=== PATIENT | male | born 1950 | race Caucasian/White ===

== ENCOUNTER 2018-02-17 16:10 | Inpatient (IN) | payer OTHER ==
--- NOTE | 2018-02-17 16:36 | EDPHY ---
H & P Stated Complaint: Found down at home Time Seen by Provider: 02/17/18 16:36 - Personal History Current Tetanus/Diphtheria Vaccine: No - Medical/Surgical History Hx Asthma: No Hx Chronic Respiratory Disease: No Hx Diabetes: No Hx Cardiac Disease: No Hx Renal Disease: No Hx Cirrhosis: No Hx Alcoholism: No Hx HIV/AIDS: No Hx Splenectomy or Spleen Trauma: No Other PMH: denies - Social History Smoking Status: Never smoked Constitutional: Initial Vital Signs Temperature (C) 37.0 C 02/17/18 16:15 Heart Rate 97 02/17/18 16:15 Respiratory Rate 18 02/17/18 16:15 Blood Pressure 134/87 H 02/17/18 16:15 O2 Sat (%) 80 L 02/17/18 16:15 O2 Delivery Mode Nasal Cannula O2 (L/minute) 3 Allergies/Adverse Reactions: No Known Allergies Allergy (Unverified 02/17/18 16:18) Home Medications: Medication Instructions Recorded NK [No Known Home Meds] 12/10/13 Medical Decision Making - Diagnostics Imaging Results: Imaging Impressions Head CT 02/17/18 16:43 Impression: 1. Hypodense possible mass right frontal lobe. Consider MRI of the brain with contrast for further characterization. Focal infarct is felt to be possible but less likely. Findings discussed with Tera Beckman MD at 18:08 hour, 02/17/2018. Chest X-Ray 02/17/18 16:44 Impression: 1. Peribronchial thickening and interstitial prominence suggesting airways disease/bronchitis. 2. Elevation of the right hemidiaphragm. 3. Degenerative change in the cervical spine with spondylolistheses. Chest/Thorax CTA 02/17/18 18:35 Impression: 1. No evidence of pulmonary embolus using CT protocol. 2. Mild dependent atelectasis at the lung bases posteriorly. 3. Marked compression at T5. It is indeterminate if this is a pathologic compression fracture versus related to trauma or osteoporosis. 4. Numerous hypodensities in the liver. These are nonspecific and could be related to tiny small cysts versus metastatic deposits. Consider CT abdomen and pelvis or MRI exam with contrast for further characterization as clinically directed. 5. Moderate hiatal hernia. Mass in the hiatal hernia cannot be excluded on these images. Findings discussed with Tera Beckman MD at 19:27 hour, 02/17/2018. Imaging: Discussed imaging studies w/ call center representative Radiologist, I viewed and interpreted images myself ED Course/Re-evaluation: CHIEF COMPLAINT: Found down HISTORY OF PRESENT ILLNESS: The patient is a 68 y/o male with no significant medical history arriving via EMS after he was found down at home. The fire department was contacted when he didn't show for work today. He remembers going to bed last night and then waking up a few times during the night with back pain. The next thing he remembers is being woken up by the fire department while lying on the floor this afternoon when they had to break into his house to check on him. On scene he told a family member he ate dinner then laid down on the kitchen floor, though his brother disputes this because they found him on the floor in his bedroom. Brother also notes the oven was left on when they found him. A family member last saw him normal around 18:30 last night, about 10 hours ago. The patient vomited en route and is currently alert and oriented. He has dried blood around his mouth that he says it because his lips are dry. He says he hasn't eaten since last night. No history of seizures. He denies taking any medications or illicit drugs. Family members also report he is very healthy and takes no medications. REVIEW OF SYSTEMS: A comprehensive 10 system review of systems is otherwise negative aside from elements mentioned in the history of present illness and medical decision making. PHYSICAL EXAM: HR, BP, O2 Sat, RR. Temp noted General Appearance: Alert, cachectic. Head: Atraumatic without scalp tenderness or obvious injury Eyes: Pupils equal, round, reactive to light and accommodation, EOMI, no trauma , no injection. Ears: Clear bilaterally, no perforation, normal landmarks Nose: Atraumatic, no rhinorrhea, clear. Throat: There is no erythema or exudates, no lesions, normal tonsils, mucus membranes dry. Laceration right lateral tongue. Dried blood around mouth. Neck: Supple, nontender, no lymphadenopathy. Respiratory: No retractions, no distress, no wheezes, and no accessory muscle use. Lungs are clear to auscultation bilaterally. Cardiovascular: Regular rate and rhythm, no murmurs, rubs, or gallops. Good capillary refill all extremities. Gastrointestinal: Abdomen is soft, nontender, non-distended, no masses, no rebound, no guarding, no peritoneal signs. Musculoskeletal: Normal active ROM of all extremities, atraumatic. Neurological: Alert, appropriate, and interactive. The patient has non-focal cranial nerves, motor, sensory, and cerebellar exam. Skin: No rashes, good turgor, no nodules on palpation. Past medical history: Denies Past surgical history: Denies Family history: Heart disease and stroke; brother as Factor II deficiency with history of several blood clots. Social history: Family members at bedside. Lives in [place]. Single. Vegan. DIAGNOSTICS/PROCEDURES/CRITICAL CARE TIME: The 12 lead EKG was interpreted by myself. Sinus mechanism. No ischemia. See hard copy and/or "tracemaster" electronic copy for interpretation. Head CT: Possible lesion right frontal vs infarct Chest x-ray: no infiltrate Chest CTA: no PE, nondescript liver lesions, T5 compression fracture with some retropulsion Brain MRI: right frontal lesion Critical care time spent by me, Dr. Beckman, exclusively with this patient was 45 minutes, exclusive of PA time and exclusive of procedures. The organ system at risk was brain. Time spent in serial assessments of the patient, discussion with patient's family, consideration of interventions, radiology and neurosurgery consultation, and review of imaging and lab results. DIFFERENTIAL DIAGNOSIS: The differential diagnosis for the patient's altered mental status included but was not limited to hypoglycemia, infectious process, electrolyte abnormality, head injury, neurologic process, anemia, cardiac process, and intoxicants. MEDICAL DECISION MAKING: This is a 68 y/o male who presents after he was found down at home for an unknown period of time, perhaps as long as 20 hours or so. He is alert and oriented upon assessment, but cannot provide much detail about what happened between last night and when he was awoken by the fire department this afternoon. He generally denies complaints other than feeling thirsty. He has dried blood around his lips, a right lateral tongue laceration, and vomited once en route here. He was hypoxemic at 80% upon intake. Unclear what caused this prolonged period of unconsciousness. Patient may have had a seizure given tongue bite, though the differential is broad. Concern for rhabdomyolysis. Plan for IV, labs, EKG, chest x-ray, head CT. BGL unexpectedly normal for not having eaten all day. UA is positive for glucose and blood (or possibly myoglobin, CK is still pending). Urine tox is negative. Non-contrast head CT shows infarct vs. lesion. Brain MRI w/without IV contrast ordered for further evaluation. D-dimer extremely elevated greater than 20.00. This may support likelihood of malignancy. Chest CTA ordered to rule out PE. Patient continues to be hypoxemic when taken off supplemental O2. CK elevated 2202 indicating rhabdomyolysis. Chest CTA negative for PE. Nondescript liver lesions noted. MRI still pending. Will preload with Keppra for suspected seizure related to possible brain lesion. Spoke with hospitalist service. Dr. Barron accepts admission. 1934: Patient is now vomiting. 4mg IV Zofran ordered. Brain MRI shows right frontal lesion. Spoke with Dr. Barron and updated him on reports and patient condition. 2029: Consulted with Dr. Tristan, neurosurgeon. He will consult during admission. Discussed results with patient and his family members. - Data Points Laboratory Results: Laboratory Results 02/17/18 16:10 02/17/18 16:10 02/17/18 02/17/18 02/17/18 16:39 16:39 16:10 WBC RBC Hgb POC Hgb 14.3 gm/dL gm/dL (13.7-17.5) Hct POC Hct 42 % % (40-51) MCV MCH MCHC RDW Plt Count MPV Neut % (Auto) Lymph % (Auto) Bureau % (Auto) Eos % (Auto) Baso % (Auto) Nucleat RBC Rel Count Absolute Neuts (auto) Absolute Lymphs (auto) Absolute Monos (auto) Absolute Eos (auto) Absolute Basos (auto) Absolute Nucleated RBC Immature Gran % Immature Gran # RBC/WBC/PLT Morphology Platelet Estimate PT INR D-Dimer POC Sodium 141 mEq/L mEq/L (135-145) Sodium POC Potassium 4.3 mEq/L mEq/L (3.3-5.0) Potassium POC Chloride 108 mEq/L mEq/L (97-110) Chloride Carbon Dioxide Anion Gap POC BUN 20 mg/dL mg/dL (7-23) BUN Creatinine POC Creatinine 0.9 mg/dL mg/dL (0.7-1.3) Estimated GFR Glucose POC Glucose 137 mg/dL H mg/dL (70-100) Calcium Creatine Kinase CK-MB (CK-2) Fraction CK-MB (CK-2) % Creatine Kinase Interp POC Troponin I 0.04 ng/mL ng/mL (0.00-0.08) Urine Color Urine Appearance Urine pH Ur Specific [place] Urine Protein Urine Ketones Urine Blood Urine Nitrate Urine Bilirubin Urine Urobilinogen Ur Leukocyte Esterase Urine RBC Urine WBC Ur Epithelial Cells Amorphous Sediment Urine Mucus Urine Sperm Urine Glucose Urine Opiates Screen NEGATIVE (NEGATIVE) Urine Barbiturates NEGATIVE (NEGATIVE) Ur Phencyclidine Scrn NEGATIVE (NEGATIVE) Ur Amphetamine Screen NEGATIVE (NEGATIVE) U Benzodiazepines Scrn NEGATIVE (NEGATIVE) Urine Cocaine Screen NEGATIVE (NEGATIVE) U Marijuana (THC) Screen NEGATIVE (NEGATIVE) 02/17/18 02/17/18 02/17/18 16:10 16:10 16:10 WBC RBC Hgb POC Hgb Hct POC Hct MCV MCH MCHC RDW Plt Count MPV Neut % (Auto) Lymph % (Auto) Bureau % (Auto) Eos % (Auto) Baso % (Auto) Nucleat RBC Rel Count Absolute Neuts (auto) Absolute Lymphs (auto) Absolute Monos (auto) Absolute Eos (auto) Absolute Basos (auto) Absolute Nucleated RBC Immature Gran % Immature Gran # RBC/WBC/PLT Morphology Platelet Estimate PT 14.6 SEC SEC (12.0-15.0) INR 1.12 (0.83-1.16) D-Dimer > 20.00 ug/mLFEU H ug/mLFEU (0.00-0.50) POC Sodium Sodium 138 mEq/L mEq/L (135-145) POC Potassium Potassium 4.8 mEq/L mEq/L (3.3-5.0) POC Chloride Chloride 106 mEq/L mEq/L (97-110) Carbon Dioxide 25 mEq/l mEq/l (22-31) Anion Gap 7 mEq/L mEq/L (6-14) POC BUN BUN 20 mg/dL mg/dL (7-23) Creatinine 0.9 mg/dL mg/dL (0.7-1.3) POC Creatinine Estimated GFR > 60 Glucose 126 mg/dL H mg/dL (70-100) POC Glucose Calcium 8.7 mg/dL mg/dL (8.5-10.4) Creatine Kinase 2202 IU/L H IU/L (0-224) CK-MB (CK-2) Fraction 11.60 ng/mL H ng/mL (0.00-4.55) CK-MB (CK-2) % 0.5 % % (0.0-4.0) Creatine Kinase Interp NEGATIVE (NEGATIVE) POC Troponin I Urine Color YELLOW Urine Appearance HAZY Urine pH 5.0 (5.0-7.5) Ur Specific [place] 1.022 (1.002-1.030) Urine Protein 1+ H (NEGATIVE) Urine Ketones NEGATIVE (NEGATIVE) Urine Blood 2+ H (NEGATIVE) Urine Nitrate NEGATIVE (NEGATIVE) Urine Bilirubin NEGATIVE (NEGATIVE) Urine Urobilinogen NEGATIVE EU EU (0.2-1.0) Ur Leukocyte Esterase NEGATIVE (NEGATIVE) Urine RBC 1-3 /hpf /hpf (0-3) Urine WBC 1-3 /hpf /hpf (0-3) Ur Epithelial Cells NONE SEEN /lpf /lpf (NONE-1+) Amorphous Sediment PRESENT /hpf /hpf (NONE-1+) Urine Mucus TRACE /lpf /lpf (NONE-1+) Urine Sperm PRESENT /hpf /hpf (NONE SEEN) Urine Glucose 3+ H (NEGATIVE) Urine Opiates Screen Urine Barbiturates Ur Phencyclidine Scrn Ur Amphetamine Screen U Benzodiazepines Scrn Urine Cocaine Screen U Marijuana (THC) Screen 02/17/18 16:10 WBC 13.32 10^3/uL H 10^3/uL (3.80-9.50) RBC 4.56 10^6/uL 10^6/uL (4.40-6.38) Hgb 15.2 g/dL g/dL (13.7-17.5) POC Hgb Hct 42.5 % % (40.0-51.0) POC Hct MCV 93.2 fL fL (81.5-99.8) MCH 33.3 pg pg (27.9-34.1) MCHC 35.8 g/dL g/dL (32.4-36.7) RDW 12.2 % % (11.5-15.2) Plt Count 145 10^3/uL L 10^3/uL (150-400) MPV 11.8 fL H fL (8.7-11.7) Neut % (Auto) 90.4 % H % (39.3-74.2) Lymph % (Auto) 3.2 % L % (15.0-45.0) Bureau % (Auto) 5.7 % % (4.5-13.0) Eos % (Auto) 0.0 % L % (0.6-7.6) Baso % (Auto) 0.2 % L % (0.3-1.7) Nucleat RBC Rel Count 0.0 % % (0.0-0.2) Absolute Neuts (auto) 12.04 10^3/uL H 10^3/uL (1.70-6.50) Absolute Lymphs (auto) 0.43 10^3/uL L 10^3/uL (1.00-3.00) Absolute Monos (auto) 0.76 10^3/uL 10^3/uL (0.30-0.80) Absolute Eos (auto) 0.00 10^3/uL L 10^3/uL (0.03-0.40) Absolute Basos (auto) 0.03 10^3/uL 10^3/uL (0.02-0.10) Absolute Nucleated RBC 0.00 10^3/uL 10^3/uL (0-0.01) Immature Gran % 0.5 % % (0.0-1.1) Immature Gran # 0.07 10^3/uL 10^3/uL (0.00-0.10) RBC/WBC/PLT Morphology TNP Platelet Estimate TNP PT INR D-Dimer POC Sodium Sodium POC Potassium Potassium POC Chloride Chloride Carbon Dioxide Anion Gap POC BUN BUN Creatinine POC Creatinine Estimated GFR Glucose POC Glucose Calcium Creatine Kinase CK-MB (CK-2) Fraction CK-MB (CK-2) % Creatine Kinase Interp POC Troponin I Urine Color Urine Appearance Urine pH Ur Specific [place] Urine Protein Urine Ketones Urine Blood Urine Nitrate Urine Bilirubin Urine Urobilinogen Ur Leukocyte Esterase Urine RBC Urine WBC Ur Epithelial Cells Amorphous Sediment Urine Mucus Urine Sperm Urine Glucose Urine Opiates Screen Urine Barbiturates Ur Phencyclidine Scrn Ur Amphetamine Screen U Benzodiazepines Scrn Urine Cocaine Screen U Marijuana (THC) Screen Medications Given: Discontinued Medications Hydromorphone HCl (Dilaudid) 1 mg IVP EDNOW ONE Stop: 02/17/18 18:36 Last Admin: 02/17/18 18:36 Dose: 1 mg Sodium Chloride (Ns) 1,000 mls @ 0 mls/hr IV ONCE ONE; Wide Open PRN Reason: Protocol Stop: 02/17/18 18:46 Last Admin: 02/17/18 18:46 Dose: 1,000 mls Levetiracetam (Keppra (Premix)) 100 mls @ 400 mls/hr IV EDNOW ONE Stop: 02/17/18 19:44 Last Admin: 02/17/18 19:40 Dose: 100 mls Ondansetron HCl (Zofran) 4 mg IVP EDNOW ONE Stop: 02/17/18 19:37 Last Admin: 02/17/18 19:40 Dose: 4 mg Point of Care Test Results: Chemistry 02/17/18 02/17/18 16:39 16:39 POC Sodium 141 mEq/L mEq/L (135-145) POC Potassium 4.3 mEq/L mEq/L (3.3-5.0) POC Chloride 108 mEq/L mEq/L (97-110) POC BUN 20 mg/dL mg/dL (7-23) POC Creatinine 0.9 mg/dL mg/dL (0.7-1.3) POC Glucose 137 mg/dL H mg/dL (70-100) POC Troponin I 0.04 ng/mL ng/mL (0.00-0.08) ISTAT H&H 02/17/18 16:39 POC Hgb 14.3 gm/dL gm/dL (13.7-17.5) POC Hct 42 % % (40-51) Departure - Departure Disposition: [facility] Inpatient Acute Clinical Impression: Hypoxemia, Glucosuria, Brain lesion, Elevated d-dimer Rhabdomyolysis Qualifiers: Rhabdomyolysis type: non-traumatic Qualified Code(s): M62.82 - Rhabdomyolysis Altered mental state Qualifiers: Altered mental status type: unspecified Qualified Code(s): R41.82 - Altered mental status, unspecified Vomiting Qualifiers: Vomiting type: unspecified Vomiting Intractability: non-intractable Nausea presence: with nausea Qualified Code(s): R11.2 - Nausea with vomiting, unspecified Traumatic compression fracture of T5 thoracic vertebra Qualifiers: Encounter type: initial encounter Fracture type: closed Qualified Code(s): S22.050A - Wedge compression fracture of T5-T6 vertebra, initial encounter for closed fracture Condition: Fair Report Scribed for: Tera Beckman Report Scribed by: Nidhi Resendiz Date of Report: 02/17/18 Time of Report: 16:49
[2018-02-17 16:54] LABS: PLATELET COUNT 145 10^3/uL (150-400)
[2018-02-17 17:37] LABS: INR 1.12 (0.83-1.16); PROTIME(PATIENT) 14.6 SEC (12.0-15.0)
[2018-02-17] MEDS ORDERED: HYDROmorphONE/DILAUDID 1 MG/ML INJ ONE (18:35)
[2018-02-17] MEDS ORDERED: HYDROmorphONE/DILAUDID 1 MG/ML INJ IVP ONE (18:35)
[2018-02-17] MEDS ORDERED: IOPAMIDOL (ISOVUE 370) 100 ML BTL IV ONE (18:40)
[2018-02-17] MEDS ORDERED: NS 1,000 ML IV ONE (18:45)
[2018-02-17 18:48] LABS: CREATINE KINASE 2202 IU/L (0-224)
[2018-02-17] MEDS ORDERED: GADOBUTROL 10 ML VIAL IVP ONE (19:27)
[2018-02-17] MEDS ORDERED: levETIRAcetam 1000MG/NACL 100 ML IV ONE (19:30)
[2018-02-17] MEDS ORDERED: ONDANSETRON 4 MG/2 ML VIAL IVP ONE (19:36)
[2018-02-17] MEDS ORDERED: ONDANSETRON 4 MG/2 ML VIAL IVP PRN (21:36)
[2018-02-17] MEDS ORDERED: ONDANSETRON DISINTEGRATING 4 MG TAB PO PRN (21:36)
[2018-02-17] MEDS ORDERED: IOPAMIDOL (ISOVUE-300) 100 ML BTL ONE (21:45)
[2018-02-17] MEDS: NS 1,000 ML IV SCH (22:33)
--- NOTE | 2018-02-17 23:09 | CPEKG ---
Test Reason : OPEN Blood Pressure : / mmHG Vent. Rate : 090 BPM Atrial Rate : 090 BPM P-R Int : 133 ms QRS Dur : 084 ms QT Int : 336 ms P-R-T Axes : 062 023 054 degrees QTc Int : 411 ms Sinus rhythm Confirmed by Elle Paul ([id number]) on 02/17/2018 11:08:51 PM Referred By: Confirmed By:Elle Paul
--- NOTE | 2018-02-17 23:15 | GHP ---
DATE OF ADMISSION: 02/17/2018 CHIEF COMPLAINT: Found down. HISTORY OF PRESENT ILLNESS: This is a 68-year-old male who has no significant past medical history. He is actually quite healthy at baseline. The last thing he remembered is that he tried to eat dinn er and for some reason lay down on the floor to sleep. He did not go to work, and thus fire departme nt was called and found him down but responsive. He did vomit en route. He had dried blood around h is mouth. He seemed to be postictal at the time. Currently, he is complaining of back pain more on the right side that has been going on for a little bit of time. He has not had any headaches, vision changes, focal weakness, personality changes. Denies any weight loss. His last colonoscopy was man y years ago. He is not a smoker. REVIEW OF SYSTEMS: 10-point review of systems was obtained and other than stated was negative. PAST MEDICAL HISTORY: None. MEDICATIONS: None. SOCIAL HISTORY: No smoking or alcohol. 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 FAMILY HISTORY: Reviewed. PHYSICAL EXAMINATION: VITAL SIGNS: Afebrile, blood pressure is 130/80, heart rate 93, oxygen satura tion 91% on 4 L. GENERAL: Patient is well developed, no apparent distress. HEENT: Nonicteric scle wilbert. Extraocular movements intact. Dry mucous membranes with dried blood in the mouth. NECK: Supp le. LUNGS: Good effort. Clear to auscultation bilaterally. CARDIOVASCULAR: Regular rate, rhythm. No murmurs or gallops. ABDOMEN: Positive bowel sounds. Soft. Nontender. EXTREMITIES: No clubb ing, cyanosis, or edema. SKIN: Without rash, dry, intact. NEURO: Alert and oriented x3, 5/5 stren gth in all 4 extremities. LABS: White count is 13, hemoglobin 15, platelets are slightly low, 145. Chemistry is normal. Trop onin is negative. CT scan of the chest shows a compression fracture at T5, possibly pathological, as well as numerous in the liver and a moderate hiatal hernia. MRI of the brain shows a 3 c m frontal lobe mass that is ring-enhancing with indeterminate etiology. ASSESSMENT: A 68-year-old male presenting with probable seizure, brain mass, and possibly metastatic disease. PLAN: 1. Brain mass: Neurosurgery will see the patient. Seems like with the liver with possible liver me tastases and possible pathological fracture, that these are metastases. He does have a CT scan of th e chest already. We will get a CT scan of the abdomen and pelvis. See if there is anything there to biopsy. He does have consistent lower back pain, and we might see some more pathological-type fract ures or more bone disease with the CT scanning of the abdomen, pelvis, and lumbar spine. 2. Probable seizure: We loaded him with Keppra. 3. Hypoxia: Patient does not have a pulmonary embolism. There is some atelectasis. There possibly could have been some aspiration. We are going to hold off on any antibiotics. We will continue to monitor. /[id number]/MODL
[2018-02-17] MEDS: oxyCODONE IR 5 MG TAB PO PRN (23:18)
[2018-02-18] MEDS: oxyCODONE IR 5 MG TAB PO PRN (05:16)
[2018-02-18 05:52] LABS: PLATELET COUNT 105 10^3/uL (150-400)
[2018-02-18] MEDS: ENOXAPARIN 40 MG/0.4 ML SYR SC SCH (09:24)
[2018-02-18] MEDS: levETIRAcetam 1000MG/NACL 100 ML IV SCH ×2 (09:24→21:25)
--- NOTE | 2018-02-18 09:38 | PDMN ---
Medical Necessity Medical necessity: [facility] [id number] Seizure: 68 yo found down at home suspected to have seizures. Scans reveal new brain mass w/ poss liver mets, T5 compression fx poss pathological. Pt hypoxemic at 80% RA, O2 started. IVF and IV anti-seizure meds started. Neurosurgery consult pending. Admit to IP status SDU, meets [facility] [place] for new onset seizures r/t brain disorder that requires monitoring or intervention available only at IP level of care.
--- NOTE | 2018-02-18 11:40 | HOSPPROG ---
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 ortho to see 2. likely needs hip replacement 3. presumably pathologic diagnosis will be obtained at that time metastatic workup: check psa hope to get path from hip surgery pain: prn dialudid code: full dispo: stepdown, inpt Subjective: case d/w dr walker Objective: Vital Signs Temp Pulse Resp BP Pulse Ox 36.8 C 95 21 H 105/58 L 95 02/18/18 07:42 02/18/18 07:42 02/18/18 07:42 02/18/18 07:42 02/18/18 07:42 Laboratory Results 02/18/18 04:45 02/18/18 04:45 02/17/18 02/18/18 02/19/18 05:59 05:59 05:59 Intake Total 2745 Output Total 300 Balance 2445 PT 14.6 SEC (12.0-15.0) 02/17/18 16:10 INR 1.12 (0.83-1.16) 02/17/18 16:10 - Physical Exam Constitutional: no apparent distress, appears nourished Eyes: anicteric sclera, EOMI Ears, Nose, Mouth, Throat: other (dried blood about mouth) Cardiovascular: regular rate and rhythym, no murmur, rub, or gallop Respiratory: no respiratory distress, no rales or rhonchi Gastrointestinal: normoactive bowel sounds, soft, non-tender abdomen Genitourinary: No zhong in urethra Skin: warm, normal color Musculoskeletal: No full muscle strength Neurologic: AAOx3 Psychiatric: interacting appropriately ICD10 Worksheet Patient Problems: Problems Problem Status Onset Altered mental state Acute Brain lesion Acute Elevated d-dimer Acute Glucosuria Acute Hypoxemia Acute Rhabdomyolysis Acute Traumatic compression fracture of T5 thoracic vertebra Acute Vomiting Acute
--- NOTE | 2018-02-18 12:35 | ASMTCMCOM ---
CM Note CM Note Notes: CM reviewed pt's chart for d/c planning. Pt is a 68 y/o male with no significant medical hx. Pt was found lying down on his bedroom. Upon exam pt was found to have had probable seizure, a brain mass, possibly metastatic disease and a pathologic hip fracture. Pt is retired. OT/PT have been ordered. CM will follow. D/C Plan: TBD Date Signed: 02/18/2018 12:34 PM Electronically Signed By:Dorita Fishman
[2018-02-18] MEDS: DEXAMETHASONE 4 MG/ML VIAL IVP SCH ×3 (12:58→23:04)
--- NOTE | 2018-02-18 13:29 | GCON ---
ORTHOPEDIC ER CONSULT/INPATIENT CONSULT DATE OF CONSULTATION: 02/17/2018 CHIEF COMPLAINT: 1. Altered mental status. 2. Right femoral neck fracture. 3. Left acetabular fracture. 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 He was doing well a few days ago and last night had a seizure and a fall. He seemed to be quite heal thy at baseline. His brother does most of the history. He is from [place]. He moved to [place] a bout 30 years ago. He was triaged to the emergency room. He does not describe any back pain prior. He does complain of some neck pain and stiffness from arthritis. He does complain of some baseline hip pain prior to this incident per his brother. Please see details of ER H and P and admitting H and P. PHYSICAL EXAM: Pertinent orthopedic examination reveals a sleepy gentleman who arises with verbal co mmands. He follows commands. He complains of bilateral hip pain. Abdomen is soft. X-RAY AND LABORATORY STUDIES: Imaging reviewed, shows a brain mass on the left frontal lobe. There is question of T5 compression fracture, may be subacute, but he was not describing any back pain prio r, as well as a right femoral neck fracture that is displaced with a slight crack in the greater troc hanter as well as a left acetabular fracture. IMPRESSION/RECOMMENDATIONS: I spent about a half hour at the bedside. I spoke with his family and jewel is brother. I described the surgical interventions for the femoral neck fracture, most likely a tota l hip replacement. My main concern is the diagnosis of this new found mass in his brain. Question m etastatic versus primary. It would be nice to understand the whole picture 1st. We can definitely w ait on the femoral neck fracture and hip replacement. His brother is interested in also getting a di agnosis. Neuro Surgery to consult. /[id number]/MODL
[2018-02-18] MEDS: HYDROmorphONE/DILAUDID 1 MG/ML INJ IVP PRN (15:48)
[2018-02-18] MEDS: ACETAMINOPHEN 325 MG TAB PO PRN (23:05)
[2018-02-18] MEDS: NS 1,000 ML IV SCH (23:07)
--- NOTE | 2018-02-19 02:48 | GCON ---
REASON FOR CONSULT: A 3 cm right frontal mass. 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 He is single and lives alone and has no medical issues. He states yesterday he fe lt like his hips hurt and he sat down, however, he does not correctly recall the incident. He presen brodie to the emergency room with a right femoral neck fracture and a left acetabular fracture. Imaging workup found a large 3 cm right frontal mass. The patient reports no symptoms. He has had no heada ches. No dizziness. No vomiting. No weakness. No confusion or mental deficits of any kind. He st ates he was completely fine until yesterday. Per HPI, it appears that he may have had a seizure. PAST MEDICAL HISTORY: The patient denies any chronic disease or any past medical history. PAST SURGICAL HISTORY: The patient denies any past surgical history. SOCIAL HISTORY: The patient lives alone. 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 He is not . HOME MEDICATIONS: The patient takes no home medications. REVIEW OF SYSTEMS: Negative except as stated above. PHYSICAL EXAM: NEUROLOGIC: The patient is alert and oriented x3. His vital signs are stable. He i s in no acute distress. He does have some blood tinge around his lips. He is actively not moving hi s lower extremities. His extraocular movements are intact. His pupils are equal and reactive to lig ht. His cranial nerves 2-12 are grossly intact. Tongue protrusion is midline. No facial droop. Th e patient notes some pain in his right shoulder and cannot lift it fully due to pain. His left upper extremity has 5/5 strength. The patient can wiggle his toes and contract all the muscles in his low er extremities. Full exam was deferred given bilateral fractures of his hips. ASSESSMENT AND PLAN: This is a 68-year-old male who is relatively healthy, who presented yesterday a fter a questionable seizure and findings of a 3 cm right frontal lesion and bilateral hip fractures. He has continued workup right now for possible metastatic disease. We agree with this workup. Kepp ra has been loaded and we would continue Keppra at this point in time. I would also add Decadron 4 m g q.6 hours for any brain swelling due to the tumor. We will follow the complete workup for metastat ic disease, and if it is negative, we will likely resect the tumor. We will make further recommendat ions upon completion of the workup. The patient will be seen at the bedside later this afternoon by Dr. Tristan. This plan was discussed with him and images were reviewed with him. /[id number]/MODL
[2018-02-19] MEDS: DEXAMETHASONE 4 MG/ML VIAL IVP SCH ×4 (06:23→23:59)
[2018-02-19] MEDS: oxyCODONE IR 5 MG TAB PO PRN ×2 (06:27→17:29)
--- NOTE | 2018-02-19 08:56 | SOAPPROG ---
SOAP Progress Note Assessment/Plan: Assessment: R fem neck fx L acetabular fx Brain mass Plan: 02/19/18 08:52 spoke with BLANCA Brown and brother. agrees with definitive mgmt here at [facility] Plan for Total hip this week Arthroplasty consult pending 02/19/18 08:55 Needs path diagnosis Subjective: spoke with Kevin (brother, BLANCA) last night spoke with Dr Tristan last night Objective: Vital Signs Temp Pulse Resp BP Pulse Ox 36.4 C 73 13 113/57 L 92 02/19/18 07:48 02/19/18 07:48 02/19/18 07:48 02/19/18 07:48 02/19/18 07:48 Laboratory Results 02/18/18 04:45 02/18/18 04:45 02/18/18 02/19/18 02/20/18 05:59 05:59 05:59 Intake Total 2745 4175 250 Output Total 300 200 800 Balance 2445 3975 -550 PT 14.6 SEC (12.0-15.0) 02/17/18 16:10 INR 1.12 (0.83-1.16) 02/17/18 16:10 alert cooperative friend at bedside abd soft mobile feet and toes answered all questions ICD10 Worksheet Patient Problems: Problems Problem Status Onset Altered mental state Acute Brain lesion Acute Elevated d-dimer Acute Glucosuria Acute Hypoxemia Acute Rhabdomyolysis Acute Traumatic compression fracture of T5 thoracic vertebra Acute Vomiting Acute
[2018-02-19] MEDS: ACETAMINOPHEN 325 MG TAB PO PRN (09:12)
[2018-02-19] MEDS: levETIRAcetam 500 MG TAB PO SCH ×2 (09:12→21:07)
[2018-02-19] MEDS: ENOXAPARIN 40 MG/0.4 ML SYR SC SCH (09:13)
--- NOTE | 2018-02-19 10:05 | GCON ---
REASON FOR ADMISSION: Found down, acute rhabdo brain mass. Mr. Schwartz is a 68-year-old white male without past medical history. He was found down at home. Ap parently, he did not show up for work, fire department called and he was found unresponsive. There w as some evidence of vomiting. He was brought into the emergency room, subsequently found to have a b rain mass. This patient is currently somewhat somnolent. All history is gleaned from the medical re cord. He was also found to have a right femoral neck fracture and left acetabular fracture. REVIEW OF SYSTEMS: A 10-point review of systems is performed, negative except for what is listed in the HPI. ALLERGIES: No known allergies to medications. SOCIAL HISTORY: No history of tobacco use. No history of alcohol use. He is in excellent health pr ior to this. 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 MEDICATIONS: At home, none, though he does take some herbal supplements. FAMILY HISTORY: Noncontributory. PHYSICAL EXAM: VITAL SIGNS: Blood pressure is 105/58, pulse 75, respirations 21, temperature 36.8, oxygen saturation 95% on 6 L. In general he is a thin, but well-developed 68-year-old white male, wh o is somewhat somnolent, but resting comfortably. HEENT: Eyes are PERRLA, EOMI. Throat shows no er ythema or tonsil hypertrophy. NECK: Supple. No cervical adenopathy. Heart is regular rate and rhy thm without murmurs, rubs, or gallops. LUNGS: Show diminished breath sounds but no wheeze. ABDOMEN: Soft, nontender. Bowel sounds are present in all 4 quadrants. EXTREMITIES: Show no clubbing, cya nosis, or edema. LABORATORIES: White count 11.5, hemoglobin 12, hematocrit 35, platelet count is 105. Sodium 138, po tassium 4.6, chloride 111, CO2 is 23, BUN 19, creatinine 0.9, glucose is 89. Urinalysis is negative. Tox screen is negative. CT scan of the abdomen reveals a fracture of the right femoral neck and th ere are numerous hypodensities in the liver. He has fractures also associated with the left iliac wi ng and superior pubic rami. Brain MRI reveals a 3 cm mass in the right posterior frontal lobe. IMPRESSION: 1. Status post fall. 2. Right femoral neck fracture as well as pelvic fracture. 3. Brain tumor. 4. Probable METS to liver. 5. Acute rhabdomyolysis. 6. Probable seizure. RECOMMENDATION: 1. Agree with admission to the intensive care unit. 2. The patient has been seen by Neurosurgery as well as Orthopedic Surgery. 3. Agree with [facility] for seizure precautions. 4. Adequate pain control. 5. Deep venous thrombosis and PE prophylaxis. 6. Stress ulcer prophylaxis. /[id number]/MODL
--- NOTE | 2018-02-19 10:45 | GCON ---
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 HISTORY OF PRESENT ILLNESS: The patient is a 68-year-old white male without past medical history. Kristi thomson presents after being found down at home. He did not report work. The fire department was called a nd he was found unresponsive at that time. He had some evidence of vomiting as well. He was brought to the emergency room. He was somewhat somnolent at the time. Currently, he IS awake and alert. H as no recollection of what occurred. All history is gleaned from the medical record. REVIEW OF SYSTEMS: 10-point review of systems is performed and negative, except for what is listed i n HPI. PAST MEDICAL HISTORY: None. ALLERGIES: No known allergies to medication. SOCIAL HISTORY: No history of tobacco use. No history of alcohol use. He is single. 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 HOME MEDICATION: None. FAMILY HISTORY: Noncontributory. PHYSICAL EXAM: VITAL SIGNS: Blood pressure 113/57, pulse 73, respirations 13, temperature 36.4, oxy gen saturation 92% 4 L. GENERAL: He is a thin 68-year-old white male who is resting comfortably in no acute distress HEENT: Eyes: PERRLA, EOMI. Throat shows no erythema or tonsillar hypertrophy. N LEELEE: Supple. No cervical adenopathy. HEART: Regular rate and rhythm without murmurs, rubs, gallop s. LUNGS: Clear to auscultation. No wheeze or rhonchi. ABDOMEN: Soft, nontender. Bowel sounds p resent in all 4 quadrants. EXTREMITIES: No clubbing, cyanosis, or edema. LABORATORY/IMAGING: White count is 11.5, hemoglobin 12, hematocrit 35, platelet count is 105. Sodiu m 138, potassium 4.6, chloride 111, CO2 23, BUN 19, creatinine 0.9, glucose is 89. Urinalysis is neg ative. Brain MRI shows a 3 cm right posterior frontal ring-enhancing mass. Abdominal CT showed a fractured right femoral neck, as well as left iliac wing and posterior pubic ra mus. IMPRESSION: 1. Brain mass. 2. Probable seizure. 3. Found down. 4. Hip fracture. RECOMMENDATIONS: 1. Adequate pain control. 2. DVT and PE prophylaxis. 3. Stress ulcer prophylaxis. 4. Neurosurgery has evaluated the patient. 5. Orthopedic has evaluated the patient. /[id number]/MODL
--- NOTE | 2018-02-19 14:27 | NEUSURGPN ---
Assessment/Plan: 68F with apparent seizure and findings of 3cm R frontal mass after fall resulting in b/l hip fx, one is operative. primary vs. 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 -Ortho may fix hip whenever is best for them from our standpoint -likely plan for OR early this week for bx/resection. -continue dex 4q6 -continue keppra 1gm BID dw Dr. Tristan Subjective: doing well, no further issues concerning for seizue. No weakness, numbness, tingling. Pain is controlled today. multiple questions from friends/family by phone and at bedside. Objective: NAD VSS AAOx4 EOMI, PEARLA cnii-xii grossly intact no pronator drift, no facial droop MAE4, 5/5= SILT Neurosurgery Physical Exam - Vitals, I&O, Labs I and O 02/18/18 02/19/18 02/20/18 05:59 05:59 05:59 Intake Total 2745 4175 650 Output Total 300 200 800 Balance 2445 3975 -150 Weight 66.9 kg Intake: Oral (ml) 600 500 650 IV Infused (ml) 2145 3675 Ns 1,000 ml @ 150 mls/hr 1045 3675 IV CONT YOLETTE Rx#: [id number] Output: Urine (ml) 300 200 800 Incontinence 800 Urinal 300 200 Other: Intake Quantity Yes Sufficient Output Comment Incontinence Condom Catheter Number of Voids 1 Incontinence 1 1 Urinal 3 Number of Stools Incontinence 0 Urinal 0 Vital Signs Temp Pulse Resp BP Pulse Ox 36.4 C 77 22 H 102/48 L 93 02/19/18 07:48 02/19/18 12:00 02/19/18 12:00 02/19/18 12:00 02/19/18 12:00 Laboratory Results 02/18/18 04:45 02/18/18 04:45 ICD10 Worksheet Patient Problems: Problems Problem Status Onset Altered mental state Acute Brain lesion Acute Elevated d-dimer Acute Glucosuria Acute Hypoxemia Acute Rhabdomyolysis Acute Traumatic compression fracture of T5 thoracic vertebra Acute Vomiting Acute
[2018-02-19] MEDS: HYDROmorphONE/DILAUDID 1 MG/ML INJ IVP PRN ×2 (14:45→21:22)
--- NOTE | 2018-02-19 14:49 | HOSPPROG ---
Hospitalist Progress Note Assessment/Plan: 58 yo M w seizure, 3 cm brain tumor, pathologic hip fracture seizure: started on keppra 2/2 brain tumor brain mass: skip tender primary vs metastatic start decadron, continue keppra neurosurgery to operate this week preoperative cardiac eval: normal ekg on presentation (interp by me) able to do > 4 mets at baseline to OR w/out further workup or intervention hip fracture: w acetabular fx this is pathologic fracture 1. ortho to see 2. likely needs hip replacement 3. presumably pathologic diagnosis will be obtained at that time metastatic workup: check psa hope to get path from hip surgery pain: prn dialudid, prn oxy code: full dispo: stepdown, inpt Subjective: case d/w dr lira, dr samuel, dr walker Objective: Vital Signs Temp Pulse Resp BP Pulse Ox 36.4 C 77 22 H 102/48 L 93 02/19/18 07:48 02/19/18 12:00 02/19/18 12:00 02/19/18 12:00 02/19/18 12:00 Laboratory Results 02/18/18 04:45 02/18/18 04:45 02/18/18 02/19/18 02/20/18 05:59 05:59 05:59 Intake Total 2745 4175 650 Output Total 300 200 800 Balance 2445 3975 -150 PT 14.6 SEC (12.0-15.0) 02/17/18 16:10 INR 1.12 (0.83-1.16) 02/17/18 16:10 - Physical Exam Constitutional: no apparent distress, appears nourished Eyes: PERRL, anicteric sclera Ears, Nose, Mouth, Throat: moist mucous membranes, hearing normal Cardiovascular: regular rate and rhythym, no murmur, rub, or gallop Respiratory: no respiratory distress, other (CTA anterolat) Gastrointestinal: normoactive bowel sounds, soft, non-tender abdomen Genitourinary: no bladder fullness, No zhong in urethra Skin: warm, normal color Musculoskeletal: No full muscle strength Neurologic: AAOx3 ICD10 Worksheet Patient Problems: Problems Problem Status Onset Altered mental state Acute Brain lesion Acute Elevated d-dimer Acute Glucosuria Acute Hypoxemia Acute Rhabdomyolysis Acute Traumatic compression fracture of T5 thoracic vertebra Acute Vomiting Acute
[2018-02-20] MEDS: DEXAMETHASONE 4 MG/ML VIAL IVP SCH ×3 (06:05→17:26)
--- NOTE | 2018-02-20 07:24 | NEUSURGPN ---
Assessment/Plan: Assessment: 68 yo male with apparent seizure and findings of 3cm R frontal mass after fall resulting in bilateral hip fx, one is operative. Query primary vs. 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 Tristan Subjective: Awake and alert. NAD. No new complaints or concerns. Objective: AAO x 3, PERRLA/EOMI NAD, AFVSS cnii-xii grossly intact no pronator drift, no facial droop MAE4, 5/5= SILT Neuro Check Frequency: per routine Urinary Catheter in Place: No - Physician Discussed Patient with Dr.: Tristan Neurosurgery Physical Exam - Vitals, I&O, Labs I and O 02/19/18 02/20/18 02/21/18 05:59 05:59 05:59 Intake Total 4175 1550 Output Total 200 1450 Balance 3975 100 Intake: Oral (ml) 500 1550 IV Infused (ml) 3675 Ns 1,000 ml @ 150 mls/hr 3675 IV CONT YOLETTE Rx#: [id number] Output: Urine (ml) 200 1450 Incontinence 1225 Urinal 200 225 Other: Intake Quantity Yes Sufficient Output Comment Incontinence Condom Catheter Number of Voids Incontinence 1 1 Number of Stools Incontinence 0 Vital Signs Temp Pulse Resp BP Pulse Ox 36.6 C 62 12 95/52 L 95 02/19/18 20:00 02/20/18 04:00 02/20/18 04:00 02/20/18 04:00 02/20/18 04:00 Laboratory Results 02/20/18 05:26 02/20/18 05:26 ICD10 Worksheet Patient Problems: Problems Problem Status Onset Altered mental state Acute Brain lesion Acute Elevated d-dimer Acute Glucosuria Acute Hypoxemia Acute Rhabdomyolysis Acute Traumatic compression fracture of T5 thoracic vertebra Acute Vomiting Acute
[2018-02-20] MEDS: levETIRAcetam 500 MG TAB PO SCH ×2 (08:19→22:20)
[2018-02-20] MEDS: ENOXAPARIN 40 MG/0.4 ML SYR SC SCH (08:19)
--- NOTE | 2018-02-20 14:50 | HOSPPROG ---
Hospitalist Progress Note Assessment/Plan: 58 yo M w seizure, 3 cm brain tumor, pathologic hip fracture seizure: started on keppra 2/2 brain tumor brain mass: switch coupler primary vs metastatic start decadron, continue keppra neurosurgery to operate this week preoperative cardiac eval: normal ekg on presentation (interp by me) able to do > 4 mets at baseline to OR w/out further workup or intervention hip fracture: w acetabular fx this is pathologic fracture 1. ortho to see 2. likely needs hip replacement 3. presumably pathologic diagnosis will be obtained at that time metastatic workup: check psa hope to get path from hip surgery pain: prn dialudid, prn oxy code: full dispo: inpt, med surg Subjective: case d/w germain aldrich, neurosurgery PA Objective: Vital Signs Temp Pulse Resp BP Pulse Ox 36.7 C 81 17 118/67 96 02/20/18 07:21 02/20/18 07:21 02/20/18 07:21 02/20/18 07:21 02/20/18 07:21 Laboratory Results 02/20/18 05:26 02/20/18 05:26 02/19/18 02/20/18 02/21/18 05:59 05:59 05:59 Intake Total 4175 1550 Output Total 200 1450 Balance 3975 100 PT 14.6 SEC (12.0-15.0) 02/17/18 16:10 INR 1.12 (0.83-1.16) 02/17/18 16:10 - Physical Exam Constitutional: no apparent distress, appears nourished Eyes: PERRL, anicteric sclera Ears, Nose, Mouth, Throat: moist mucous membranes, hearing normal Cardiovascular: regular rate and rhythym, no murmur, rub, or gallop Respiratory: no respiratory distress, no rales or rhonchi Gastrointestinal: normoactive bowel sounds, soft, non-tender abdomen Genitourinary: No zhong in urethra Skin: warm, normal color Musculoskeletal: No full muscle strength Neurologic: AAOx3 ICD10 Worksheet Patient Problems: Problems Problem Status Onset Altered mental state Acute Brain lesion Acute Elevated d-dimer Acute Glucosuria Acute Hypoxemia Acute Rhabdomyolysis Acute Traumatic compression fracture of T5 thoracic vertebra Acute Vomiting Acute
[2018-02-20] MEDS: HYDROmorphONE/DILAUDID 1 MG/ML INJ IVP PRN (19:46)
[2018-02-20] MEDS ORDERED: GADOBUTROL 10 ML VIAL IVP ONE (20:29)
--- NOTE | 2018-02-21 00:16 | SOAPPROG ---
SOAP Progress Note Assessment/Plan: Assessment: trauma consult 68 male with recent seizure resulting in rt hip fx and left acetabular fx as well as t5 compression fx seizure 2/2 rt frontal tumor heent nonicteric, no adenopathy chest clear and nontender cor rr abd soft, nontender extrem tender rt hip and left pelvis neuro intact and symmetric impr: no new findings Plan:brain tumor bx/ rt hip orif 02/21/18 00:06 Objective: Vital Signs Temp Pulse Resp BP Pulse Ox 36.8 C 60 16 115/70 96 02/21/18 00:00 02/21/18 00:00 02/21/18 00:00 02/21/18 00:00 02/21/18 00:00 Laboratory Results 02/20/18 05:26 02/20/18 05:26 02/19/18 02/20/18 02/21/18 05:59 05:59 05:59 Intake Total 4175 1550 1200 Output Total 200 1450 525 Balance 3975 100 675 PT 14.6 SEC (12.0-15.0) 02/17/18 16:10 INR 1.12 (0.83-1.16) 02/17/18 16:10 ICD10 Worksheet Patient Problems: Problems Problem Status Onset Altered mental state Acute Brain lesion Acute Elevated d-dimer Acute Glucosuria Acute Hypoxemia Acute Rhabdomyolysis Acute Traumatic compression fracture of T5 thoracic vertebra Acute Vomiting Acute
[2018-02-21] MEDS: DEXAMETHASONE 4 MG/ML VIAL IVP SCH ×5 (00:57→23:54)
[2018-02-21] MEDS ORDERED: TRANEXAMIC ACID 1,000 MG in NS 100 ML IV ONE (06:00)
[2018-02-21] MEDS ORDERED: ceFAZolin 2 GM/DEXTROSE 100 ML IV ONE (06:00)
[2018-02-21] MEDS ORDERED: FAMOTIDINE 20 MG TAB PO ONE (06:00)
[2018-02-21] MEDS ORDERED: ROPIVACAINE 0.2% 80 MG, EPINEPHrine 0.2 MG, KETOROLAC TROMETHAMINE 30 MG in SYRINGE 0 ML IU ONE (06:00)
[2018-02-21] MEDS ORDERED: POVIDONE-IODINE 20 ML in SODIUM CL IRRIG SOLUTION 500 ML IRR ONE (06:00)
--- NOTE | 2018-02-21 08:01 | NEUSURGPN ---
Assessment/Plan: Assessment: 68 yo male with apparent seizure and findings of 3cm R frontal mass after fall resulting in bilateral hip fx, one is operative. Query primary vs. metastasis also with subacute T5 compression fracture. 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 Recommendation was for biopsy and resection. -To OR with ortho today for hip fracture. NO ANTICOAGULATION FRONTAL CRANIOTOMY FOR MASS RESECTION/BIOPSY tomorrow at 1pm -For the subacute T5 compression fx, patient currently does not have pain in this location. Will continue to monitor as weight bearing with ortho is increased. 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 -continue dex 4q6 -continue keppra 1gm BID -call with any questions or concerns -pt understands and agrees -d/w Dr. Tristan Subjective: Denies any neck or thoracic pain. Denies any new arm or leg numbness, tingling or weakness other than at hip hips, worse with movement Objective: AAO x 3, PERRLA/EOMI NAD, AFVSS CN II-XII grossly intact MAE4, 5/5= Sensation intact to light touch - Physician Discussed Patient with : Kun Neurosurgery Physical Exam - Vitals, I&O, Labs I and O 02/20/18 02/21/18 02/22/18 05:59 05:59 05:59 Intake Total 1550 1600 Output Total 1450 1125 Balance 100 475 Intake: Oral (ml) 1550 1600 Output: Urine (ml) 1450 1125 Catheter 600 Incontinence 1225 Urinal 225 525 Other: Intake Quantity Yes Yes Sufficient Output Comment Catheter condom cath Incontinence Condom Catheter Number of Voids Incontinence 1 Number of Stools Incontinence 0 Vital Signs Temp Pulse Resp BP Pulse Ox 36.8 C 60 16 115/70 96 02/21/18 00:00 02/21/18 00:00 02/21/18 00:00 02/21/18 00:00 02/21/18 00:00 Laboratory Results 02/20/18 05:26 02/20/18 05:26 ICD10 Worksheet Patient Problems: Problems Problem Status Onset Altered mental state Acute Brain lesion Acute Elevated d-dimer Acute Glucosuria Acute Hypoxemia Acute Rhabdomyolysis Acute Traumatic compression fracture of T5 thoracic vertebra Acute Vomiting Acute
[2018-02-21] MEDS: levETIRAcetam 500 MG TAB PO SCH ×2 (08:22→21:00)
[2018-02-21] MEDS ORDERED: ceFAZolin 1 GM/5 ML SYR ONE (09:24)
[2018-02-21] MEDS ORDERED: LR 1,000 ML IV ONE (10:48)
[2018-02-21] MEDS ORDERED: CEFAZOLIN 2 GM/DEXTROSE/100 ML BAG IV ONE (10:56)
[2018-02-21] MEDS ORDERED: FAMOTIDINE 20 MG TAB ONE (10:56)
--- NOTE | 2018-02-21 11:48 | PDANEPAE ---
ANE History of Present Illness r hip posterior hip ANE Past Medical History - Cardiovascular History Hx Hypertension: No Hx Arrhythmias: No - Pulmonary History Hx COPD: No Hx Asthma/Reactive Airway Disease: No Hx Oxygen in Use at Home: No Hx Sleep Apnea: No Sleep Apnea Screening Result - Last Documented: Negative - Endocrine History Hx Diabetes: No - Cancer History Cancer History Comment: R frontal lobe tumor discovered this visit ANE Review of Systems Review of Systems: - Exercise capacity Exercise capacity: >=4 METS ANE Patient History - Allergies Allergies/Adverse Reactions: No Known Allergies Allergy (Unverified 02/17/18 16:18) - Home Medications Home Medications: NK [No Known Home Meds] 12/10/13 [Last Taken Unknown] - NPO status NPO Status: no food or drink >8 hours NPO Since - Liquids (Date): 02/21/18 NPO Since - Liquids (Time): 00:00 NPO Since - Solids (Date): 02/20/18 NPO Since - Solids (Time): 20:00 - Anes Hx Anes Hx: no prior problems - Smoking Hx Smoking Status: Never smoked - Alcohol Use Alcohol Use: None - Family Anes Hx Family Anes Hx: none ANE Labs/Vital Signs - Labs Result Diagrams: 02/20/18 05:26 02/20/18 05:26 - Vital Signs Blood Pressure: 132/78 Heart Rate: 67 Respiratory Rate: 14 O2 Sat (%): 91 Height: 182.88 cm Weight: 66.9 kg ANE Physical Exam - Airway Neck exam: FROM Mallampati Score: Class 2 Mouth exam: normal dental/mouth exam - Pulmonary Pulmonary: no respiratory distress, clear to auscultation - Cardiovascular Cardiovascular: regular rate and rhythym, no murmur, rub, or gallop - ASA Status ASA Status: III ANE Anesthesia Plan Anesthesia Plan: general endotracheal anesthesia
[2018-02-21] MEDS ORDERED: MIDAZOLAM 2 MG/2 ML VIAL IVP ONE (11:52)
[2018-02-21] MEDS ORDERED: LIDOCAINE 2% 100 MG/5 ML SYR ONE (12:15)
[2018-02-21] MEDS ORDERED: fentaNYL 100 MCG/2 ML INJ ONE ×3 (12:15→16:05)
[2018-02-21] MEDS ORDERED: ROCURONIUM 50 MG/5 ML VIAL ONE (12:15)
[2018-02-21] MEDS ORDERED: PROPOFOL 200 MG/20 ML VIAL ONE (12:15)
--- NOTE | 2018-02-21 13:44 | ASMTCMCOM ---
CM Note CM Note Notes: Pt discussed in rounds. Femur surgery today, frontal craiotomy for mass resection/biopsy Tuesday. D/C needs TBD. Plan: TBD Date Signed: 02/21/2018 01:44 PM Electronically Signed By:JAI Blue
[2018-02-21] MEDS ORDERED: DEXAMETHASONE 4 MG/ML VIAL ONE (15:01)
[2018-02-21] MEDS ORDERED: ONDANSETRON 4 MG/2 ML VIAL ONE (15:01)
[2018-02-21] MEDS ORDERED: PROMETHAZINE HCL 25 MG SUPPR PR PRN (15:09)
[2018-02-21] MEDS ORDERED: METOCLOPRAMIDE 10 MG/2 ML VIAL IVP PRN (15:09)
[2018-02-21] MEDS ORDERED: MAGNESIUM HYDROXIDE 30 ML UDCUP PO PRN (15:09)
[2018-02-21] MEDS ORDERED: diphenhydrAMINE 25 MG CAP PO PRN (15:09)
[2018-02-21] MEDS ORDERED: DIPHENOXYLATE/ATROPINE LOMOTIL 1 TAB PO PRN (15:09)
[2018-02-21] MEDS ORDERED: ONDANSETRON 4 MG/2 ML VIAL IVP PRN ×2 (15:09→15:24)
[2018-02-21] MEDS ORDERED: PROMETHAZINE HCL 25 MG/ML INJ IVP PRN (15:09)
[2018-02-21] MEDS ORDERED: ONDANSETRON DISINTEGRATING 4 MG TAB PO PRN (15:09)
[2018-02-21] MEDS ORDERED: LACTULOSE 20 GM/30 ML UDCUP PO PRN (15:09)
--- NOTE | 2018-02-21 15:09 | POSTOPPROG ---
Post Op Note Date of Operation: 02/21/18 Surgeon: Alfredo Hawkins Wealth Management Advisor: Co-surgeon: MD Jaron; Wealth Management Advisor LINCOLN King Anesthesiologist: MD Varsha Anesthesia: GET(General Endotracheal) Pre-op Diagnosis: R proximal femur/ femoral neck fracture Post-op Diagnosis: same Procedure: R MARCELLUS posterior approach Inf/Abcess present in the surg proc area at time of surgery?: No EBL: 100-500 (400)
[2018-02-21] MEDS ORDERED: NALOXONE HCL 0.4 MG/ML INJ IVP PRN (15:24)
[2018-02-21] MEDS ORDERED: ACETAMINOPHEN 500 MG TAB PO PRN (15:24)
[2018-02-21] MEDS ORDERED: oxyCODONE IR 5 MG TAB PO PRN (15:24)
[2018-02-21] MEDS ORDERED: HYDROmorphONE/DILAUDID 2 MG/ML INJ IVP PRN (15:24)
[2018-02-21] MEDS ORDERED: HYDROCODONE/APAP 5/325 TAB PO PRN (15:24)
[2018-02-21] MEDS ORDERED: DIAZEPAM 5 MG/ML 1 ML SYR IVP PRN (15:24)
[2018-02-21] MEDS ORDERED: LR 1,000 ML IV SCH (15:30)
--- NOTE | 2018-02-21 15:34 | POSTANESTH ---
Post Anesthetic Evaluation Cardiovascular Status: Normal, Stable, Similar to Pre-Op Cond Respiratory Status: Normal, Stable, Similar to Pre-op Cond. Level of Consciousness/Mental Status: Can Participate in Eval, Alert and Oriented Pain Control: Adequate, Prn Tx Ordered Nausea/Vomiting Control: Adequate, Prn Tx Ordered Complications Possibly Related to Anesthesia: None Noted
[2018-02-21] MEDS: fentaNYL 100 MCG/2 ML INJ IVP PRN ×2 (16:08→16:19)
--- NOTE | 2018-02-21 16:46 | HOSPPROG ---
Hospitalist Progress Note Assessment/Plan: 58 yo M w seizure, 3 cm brain tumor, pathologic hip fracture seizure: started on keppra 2/2 brain tumor brain mass: differential tester primary vs metastatic start decadron, continue keppra resection 02/22 lovenox dc'd preoperative cardiac eval: normal ekg on presentation (interp by me) able to do > 4 mets at baseline to OR w/out further workup or intervention hip fracture: MARCELLUS today surgeon notes poor quality of bone, not clearly metastatic, could just be osteoporosis longstanding vegan, may have nutritionally based osteoporosis metastatic workup: psa normal really, no evidence of metastatic disease femoral head sent for path pain: prn dialudid, prn oxy code: full dispo: inpt, med surg Subjective: case d/w dr marley. MARCELLUS today Objective: Vital Signs Temp Pulse Resp BP Pulse Ox 36.5 C 67 19 123/79 H 95 02/21/18 15:33 02/21/18 11:48 02/21/18 16:05 02/21/18 16:02 02/21/18 16:10 Laboratory Results 02/20/18 05:26 02/20/18 05:26 02/20/18 02/21/18 02/22/18 05:59 05:59 05:59 Intake Total 1550 1600 Output Total 1450 1125 Balance 100 475 PT 14.6 SEC (12.0-15.0) 02/17/18 16:10 INR 1.12 (0.83-1.16) 02/17/18 16:10 - Physical Exam Constitutional: no apparent distress, appears nourished Eyes: PERRL, anicteric sclera Ears, Nose, Mouth, Throat: moist mucous membranes, hearing normal Cardiovascular: regular rate and rhythym, no murmur, rub, or gallop Respiratory: no respiratory distress, no rales or rhonchi Gastrointestinal: normoactive bowel sounds, soft, non-tender abdomen Genitourinary: no bladder fullness, zhong in urethra Skin: warm, normal color Musculoskeletal: other (R foot w 1+ DP pulse) Psychiatric: interacting appropriately, not anxious ICD10 Worksheet Patient Problems: Problems Problem Status Onset Altered mental state Acute Brain lesion Acute Elevated d-dimer Acute Glucosuria Acute Hypoxemia Acute Rhabdomyolysis Acute Traumatic compression fracture of T5 thoracic vertebra Acute Vomiting Acute
[2018-02-21] MEDS: ceFAZolin 2 GM/DEXTROSE 100 ML IV SCH (20:59)
[2018-02-21] MEDS: SENNOSIDES/DOCUSATE SODIUM TAB PO SCH (21:00)
[2018-02-21] MEDS: FAMOTIDINE 20 MG TAB PO SCH (21:00)
[2018-02-21] MEDS: HYDROmorphONE/DILAUDID 1 MG/ML INJ IVP PRN (21:11)
[2018-02-21] MEDS: oxyCODONE IR 5 MG TAB PO PRN (21:11)
[2018-02-22] MEDS: ceFAZolin 2 GM/DEXTROSE 100 ML IV SCH ×2 (03:09→21:43)
[2018-02-22] MEDS: oxyCODONE IR 5 MG TAB PO PRN (03:10)
[2018-02-22] MEDS: DEXAMETHASONE 4 MG/ML VIAL IVP SCH ×4 (06:38→23:46)
--- NOTE | 2018-02-22 07:43 | SOAPPROG ---
SOAP Progress Note Assessment/Plan: Assessment: Postop day 1 status post right posterior approach total hip arthroplasty with open reduction internal fixation of the greater trochanter Plan: Weightbear as tolerated with assistance to the right lower extremity, foot flat weight-bearing to the left lower extremity with a walker, PT/OT DVT prophylaxis: Lovenox 40 mg daily once cleared by Neurosurgery, Emiliano clancy and SCDs Incentive spirometry 10 times per hour Analgesics: P.o. Narcotics, wean off when tolerated, then transition to Celebrex and Tylenol Disposition: Pending 02/22/18 07:40 02/22/18 07:43 Subjective: No acute events overnight. Pain better controlled today. Denies fevers chills nausea vomiting chest pain shortness of breath numbness or tingling. Objective: Vital Signs Temp Pulse Resp BP Pulse Ox 36.6 C 61 14 103/63 96 02/22/18 04:00 02/22/18 04:00 02/22/18 04:00 02/22/18 04:00 02/22/18 04:00 Laboratory Results 02/22/18 04:35 02/20/18 05:26 02/21/18 02/22/18 02/23/18 05:59 05:59 05:59 Intake Total 1600 2305 Output Total 1125 950 Balance 475 1355 PT 14.6 SEC (12.0-15.0) 02/17/18 16:10 INR 1.12 (0.83-1.16) 02/17/18 16:10 Awake alert and oriented x3 No acute distress Right hip: No ecchymosis, mild swelling Thigh and calf compartments soft compressible Sensation intact to light touch L4-S1 Motor intact to EHL FHL tibialis anterior gastrocsoleus Palpable DP PT pulses - Time Spent With Patient Time Spent With Patient: 10 ICD10 Worksheet Patient Problems: Problems Problem Status Onset Altered mental state Acute Brain lesion Acute Elevated d-dimer Acute Glucosuria Acute Hypoxemia Acute Rhabdomyolysis Acute Traumatic compression fracture of T5 thoracic vertebra Acute Vomiting Acute
--- NOTE | 2018-02-22 08:22 | NEUSURGPN ---
Assessment/Plan: Assessment: 68 yo male with apparent seizure and findings of 3cm R frontal mass after fall resulting in bilateral hip fx, one is operative. Query primary vs. metastasis also with subacute T5 compression fracture. 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 Discussed with patient we will need to wait for final pathology to anticipate prognosis. -Risks and benefits discussed with patient, consent signed on chart. -Patient was presented at Tumor board this am. Recommendation was for biopsy and resection. -To OR yesterday s/p hip fracture repair NO ANTICOAGULATION-FRONTAL CRANIOTOMY FOR MASS RESECTION/BIOPSY today at 1pm -For the subacute T5 compression fx, patient currently does not have pain in this location. Will continue to monitor as weight bearing with ortho is increased. If patient becomes symptomatic will require MATCH MARKER brace. -continue dex 4q6 -continue keppra 1gm BID -call with any questions or concerns -pt understands and agrees -d/w Dr. Tristan Subjective: Can't believe "this is happening to him" Objective: AxO x4 PERRLA CN 2-12 grossly intact MOSS x4 5/5 BUE lower extremity exam limited r/t s/p hip fracture Neuro Check Frequency: per routine Urinary Catheter in Place: No - Physician Discussed Patient with : [facility] Physical Exam - Vitals, I&O, Labs I and O 02/21/18 02/22/18 02/23/18 05:59 05:59 05:59 Intake Total 1600 2305 Output Total 1125 950 Balance 475 1355 Weight 66.9 kg Intake: Oral (ml) 1600 550 IV Intake (ml) 1755 Output: Urine (ml) 1125 550 Catheter 600 550 Urinal 525 Estimated Blood Loss (ml) 400 Other: Intake Quantity Yes Yes Sufficient Output Comment Catheter condom cath Number of Stools Bedpan 1 Vital Signs Temp Pulse Resp BP Pulse Ox 36.6 C 64 16 110/62 93 02/22/18 07:51 02/22/18 07:51 02/22/18 07:51 02/22/18 07:51 02/22/18 07:51 Laboratory Results 02/22/18 04:35 02/20/18 05:26 ICD10 Worksheet Patient Problems: Problems Problem Status Onset Altered mental state Acute Brain lesion Acute Elevated d-dimer Acute Glucosuria Acute Hypoxemia Acute Rhabdomyolysis Acute Traumatic compression fracture of T5 thoracic vertebra Acute Vomiting Acute
[2018-02-22] MEDS ORDERED: GADOBUTROL 10 ML VIAL IVP ONE (08:46)
[2018-02-22] MEDS: SENNOSIDES/DOCUSATE SODIUM TAB PO SCH ×2 (08:57→21:26)
[2018-02-22] MEDS: FAMOTIDINE 20 MG TAB PO SCH ×2 (08:57→21:26)
[2018-02-22] MEDS: levETIRAcetam 500 MG TAB PO SCH ×2 (10:06→21:26)
[2018-02-22] MEDS ORDERED: ceFAZolin 2 GM/DEXTROSE 100 ML IV ONE (12:00)
[2018-02-22] MEDS ORDERED: CHLORHEXIDINE GLUC HIBICLENS 118 ML BTL TP ONE (12:20)
[2018-02-22] MEDS ORDERED: BACITRACIN ZINC 0.5 OZ OINTTUBE TP ONE (12:20)
[2018-02-22] MEDS ORDERED: THROMBIN (BOVINE) 20,000 UNIT VIAL TP ONE ×2 (12:20→15:33)
[2018-02-22] MEDS ORDERED: POVIDONE-IODINE 30 GM OINTTUBE TP ONE (12:21)
[2018-02-22] MEDS ORDERED: niCARdipine/NACL/200 ML BAG IV ONE (12:21)
[2018-02-22] MEDS ORDERED: AVITENE POWDER 1 GM JAR TP ONE (12:21)
[2018-02-22] MEDS ORDERED: MANNITOL 20% 100 GM/500 ML BAG IV ONE (12:21)
[2018-02-22] MEDS ORDERED: SURGIFLO MATRIX KIT WITH THROMBIN 8 ML TP ONE (12:28)
[2018-02-22] MEDS ORDERED: GENTAMICIN SULFATE 80 MG/2 ML VIAL ONE ×2 (12:28→16:28)
[2018-02-22] MEDS ORDERED: BUPIVACAINE/EPI 0.25% 30 ML SDV ONE (12:28)
[2018-02-22] MEDS ORDERED: MIDAZOLAM 2 MG/2 ML VIAL IVP ONE (12:48)
[2018-02-22] MEDS ORDERED: PROPOFOL/EMULSION 500 MG/50 ML BOTTLE IV ONE ×2 (12:59→15:51)
[2018-02-22] MEDS ORDERED: REMIFENTANIL HCL 1 MG VIAL ONE ×2 (12:59→15:51)
[2018-02-22] MEDS ORDERED: PROPOFOL 200 MG/20 ML VIAL ONE (12:59)
[2018-02-22] MEDS ORDERED: fentaNYL 100 MCG/2 ML INJ ONE ×2 (12:59→17:04)
[2018-02-22] MEDS ORDERED: ROCURONIUM 100 MG/10 ML VIAL ONE ×2 (13:06→15:54)
[2018-02-22] MEDS ORDERED: LIDOCAINE 2% 100 MG/5 ML SYR ONE (13:07)
[2018-02-22] MEDS ORDERED: PHENYLEPHRINE 10 MG/ML SDV ONE (14:10)
--- NOTE | 2018-02-22 15:44 | GOP ---
DATE OF OPERATION: 02/21/2018 SURGEON: Alfredo Hawkins MD CO-SURGEON: Guanaco Salmeron MD CAN DRAGGER: Moises King CFA. Certified Travel Counselor was required for the procedure due to the complexity of the case and the patient's condition for positioning, prepping, draping, retraction and closure. ANESTHESIA: General. PREOPERATIVE DIAGNOSIS: Right femoral neck and proximal femur fracture with greater trochanteric involvement . POSTOPERATIVE DIAGNOSIS: same PROCEDURE PERFORMED: Right posterior approach total hip arthroplasty. Open reduction internal fixation of greater trochanter. Fluoroscopic supervision greater than 1 hour. FINDINGS: SPECIMENS: Right femoral head and neck. ESTIMATED BLOOD LOSS: 400 cc. INDICATIONS: Patient is a 68-year-old male who had a seizure at home and fell. Does not recall the incident and was found down approximately 12 hours after the fall. Diagnosed with above fracture, as well as a left acetabular fracture , and a newfound brain mass. Recommended operative treatment of the right hip and non-operative treatment of the acetabular fracture. Patient verbalized understanding of the risks, benefits of the procedure, and signed informed consent prior to it. DESCRIPTION OF PROCEDURE: Patient was seen in the holding area. Operative site was signed. Patient was taken the operating room operating room, after smooth induction of general anesthesia, was placed in the lateral decubitus position with the affected hip facing up using a pegboard and axillary roll. The affected hip was prepped and draped in usual sterile fashion. Operative site was confirmed by signature. Time-out performed. Allergies reviewed. Antibiotics and TXA were administered. A longitudinal incision was made centered over the posterior aspect of the greater trochanter. This was carried down through the subcutaneous tissue to identify the fascia darshana. This was incised in line with the incision. The gluteus skylar was bluntly split. Hemorrhagic trochanteric bursa was taken down using Bovie electrocautery. Short external rotators and trapezoidal capsule posterior capsulotomy were taken in layers from their insertion on the proximal femur and tagged with #2 FiberWires The fracture was immediately encountered. There was significant posterior comminution with extremely poor bone quality. The femoral head and parts of the proximal femur and femoral neck were excised. Due to the amount of posterior comminution and bone loss, as well as extremely poor bone quality, decision was made to proceed with a Catholic modular hip implant, as opposed to a primary traditional an Accolade II stem. The femoral canal was sequentially reamed up to a size 18 mm and 155 mm length. The trial reamer was visualized under fluoroscopy and found to be a good width and length. The permanent implant was then impacted into place. Trial cones were then placed on the proximal aspect of the stem. After dilating up to a 21 mm, ]the 21 mm reamer did not contact the bone given the amount of bone loss. Appropriate sized 21 mm trial with a +0 were secured to the proximal stem. We then placed the anterior acetabular retractor to light lever against the proximal stem to not create further fracturing or displacement of the proximal femur, greater trochanter. The acetabulum was exposed in standard fashion. The labrum was sharply excised. Ligamentum teres and acetabular fossa were excised using Bovie. The acetabulum was sequentially reamed to the appropriate size. Appropriate size implant was then impacted into place and had excellent secure fit. The cup was irrigated, dried, and the liner was locked into place. Femur was then again exposed in standard fashion. Trial neck and head in anteversion were completed and the hip was reduced. After multiple trial combinations and visualization under fluoroscopy, the hip was found to be stable with the above implants. Final implants were then placed, 2 [employer] beaded cables were then placed around the vertically oriented greater trochanteric fracture that extended down past the lesser trochanter and was found to have excellent secure fit. The wound was then copiously irrigated with sterile solution and Betadine and pulse lavaged using the pulse lavage, including the cup and the hip was relocated and taken again through range of motion and seen to be stable in all above motions, including flexion, internal rotation, adduction, as well as extension and external rotation. The capsule and external rotators were repaired through 2 drill holes in the greater trochanter. Soft tissue was infiltrated with joint cocktail. The wound was then closed in layers with #2 PDS Quill suture in the fascia darshana, 0 PDS Quill suture in the deep subcutaneous fat, and 3-0 Versalok suture in the dermis. Dermabond and sterile dressings were applied to the hip, and was placed in abduction pillow. The patient was safely awakened, extubated, taken to recovery room in stable condition. Critical portions of the procedure performed by myself, Dr. Hawkins, as well as Dr. Guanaco Salmeron. This operative note was created by myself, Dr. Hawkins, and I was immediately available for emergency cross-coverage at all times. DRAINS: None COMPLICATIONS: None. IMPLANTS: Include a Trident II Tritanium cluster hole acetabular shell size 56 with a 0 degree polyethylene, 36 mm insert, a Catholic modular hip system stem length 155 mm, 18 mm in diameter, a 21 mm cone +0 height with a 36 mm +2.5 ceramic head, also Aydee-Ugo beaded cables 2.0 mm x2. /[id number]/MODL MTDD
[2018-02-22] MEDS ORDERED: ACETAMINOPHEN 500 MG TAB PO PRN (17:01)
[2018-02-22] MEDS ORDERED: PROMETHAZINE HCL 25 MG/ML INJ IVP PRN (17:01)
[2018-02-22] MEDS ORDERED: HYDROmorphONE/DILAUDID 2 MG/ML INJ IVP PRN (17:01)
[2018-02-22] MEDS ORDERED: fentaNYL 100 MCG/2 ML INJ IVP PRN (17:01)
[2018-02-22] MEDS ORDERED: ONDANSETRON 4 MG/2 ML VIAL IVP PRN (17:01)
[2018-02-22] MEDS ORDERED: NALOXONE HCL 0.4 MG/ML INJ IVP PRN (17:01)
[2018-02-22] MEDS ORDERED: HYDROCODONE/APAP 5/325 TAB PO PRN (17:01)
[2018-02-22] MEDS ORDERED: oxyCODONE IR 5 MG TAB PO PRN (17:01)
--- NOTE | 2018-02-22 17:36 | POSTANESTH ---
Post Anesthetic Evaluation Cardiovascular Status: Normal, Stable, Similar to Pre-Op Cond Respiratory Status: Normal, Stable, Similar to Pre-op Cond. Level of Consciousness/Mental Status: Can Participate in Eval, Mildly Sleepy, Arousable Pain Control: Adequate, Prn Tx Ordered Nausea/Vomiting Control: Adequate, Prn Tx Ordered Complications Possibly Related to Anesthesia: None Noted
--- NOTE | 2018-02-22 17:52 | POSTOPPROG ---
Post Op Note Date of Operation: 02/22/18 Surgeon: Jame Tristan High Lift Operator: none Anesthesiologist: Varsha Anesthesia: GET(General Endotracheal) Pre-op Diagnosis: right frontal brain tumor, favor glioma Post-op Diagnosis: same Indication: diagnosis and treatment Procedure: right frontal craniotomy for tumor resection with use of navigation Findings: consistency of glioma, path agrees preliminarily Inf/Abcess present in the surg proc area at time of surgery?: No Depth: Organ Space EBL: 50-100 Total fluids administered: per anesthesia Complications: none Drains: Michael Serrano (#7 to full suction in subgaleal space)
--- NOTE | 2018-02-22 17:56 | SOAPPROG ---
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 Plan: POD0 s/p right frontal crani for resection, prelim HGG -MRI brain in AM -<140 systolic -cont decadron -cont keppra -f/u pathology -q1 checks overnight -ICU overnight -mobilize and assess tomorrow -DVT prophy okay tomorrow if MRI looks okay Anuj Tristan MD 02/22/18 17:52 Subjective: no issues in preop Objective: Vital Signs Temp Pulse Resp BP Pulse Ox 36.4 C 63 18 114/68 98 02/22/18 17:28 02/22/18 12:42 02/22/18 12:42 02/22/18 12:42 02/22/18 17:28 Laboratory Results 02/22/18 04:35 02/20/18 05:26 02/21/18 02/22/18 02/23/18 05:59 05:59 05:59 Intake Total 1600 2305 1200 Output Total 8882 991 2859 Balance 475 1355 150 PT 14.6 SEC (12.0-15.0) 02/17/18 16:10 INR 1.12 (0.83-1.16) 02/17/18 16:10 awake but sleep in icu after anesthesia CN normal MOSS to command symmetric wound dressed c/d/i - Pending Discharge Pending Discharge Within 24 Hours: No Pending Discharge Within 48 Hours: No ICD10 Worksheet Patient Problems: Problems Problem Status Onset Altered mental state Acute Brain lesion Acute Elevated d-dimer Acute Glucosuria Acute Hypoxemia Acute Rhabdomyolysis Acute Traumatic compression fracture of T5 thoracic vertebra Acute Vomiting Acute
--- NOTE | 2018-02-22 18:35 | GCON ---
ORTHOPEDIC CONSULTATION DATE OF CONSULTATION: 02/20/2018 CHIEF COMPLAINT: Right and left hip pain, inability to weight bear. HISTORY OF PRESENT ILLNESS: This is a 68-year-old male who was healthy and doing well until February 16. He was at home alone, had a seizure and fell to the ground. He was presumably unconscious for period of time and on the ground for approximately 12 hours before emergency medical services broke d own his door and found him down. He remembers the service knocking on his door. However, he does no t remember a fall or what anything that possibly could have initiated the fall. The patient was unab le to weightbear and was taken to the emergency department where he was diagnosed with a left acetabu lar fracture, right femoral neck and proximal femur fracture extending into the greater trochanter as well as a new diagnosis of a brain mass. Past medical, surgical history, allergies and medications, social history were all reviewed. PHYSICAL EXAMINATION: He is awake, alert, and oriented x3. No acute distress. He has easy, nonlabo red breathing. He has pain with attempts of logroll of his bilateral hips. There is no significant ecchymosis anteriorly or laterally. He has sensation intact to light touch from L4-S1 and motor inta ct to EHL, FHL, tibialis anterior, gastrocsoleus. IMAGING STUDIES: Imaging reviewed shows a comminuted right femoral neck fracture with a trochanteric posterior proximal femur and greater trochanteric involvement as well as a left acetabular fracture. ASSESSMENT AND PLAN: 68-year-old male with a left acetabular fracture, right proximal femur femoral neck fracture, questionably of pathologic origin given the newfound brain mass. I would recommend surgical management of the femoral neck fracture, nonoperative treatment of the ines tabular fracture. Given the posterior comminution and greater trochanteric involvement, I recommend a posterior approach and total hip arthroplasty, most likely requiring open reduction and internal fi xation of the greater trochanter. The goal would be for him to weightbear as tolerated on the right side in order to protect the left for the next 6-8 weeks while this fracture heals. We discussed the risks, benefits, pros, cons of surgical treatment including bleeding, infection, damage to surroundi ng anatomic structures, specifically the sciatic nerve. Specific with the procedure, we discussed ri sks of fracture, dislocation, leg length discrepancy, heterotopic ossification, blood clots, and meta l allergies and wear of the prosthetic components. He voiced understanding. All questions were answ ered and wished to proceed with surgical fixation. /[id number]/MODL
[2018-02-22] MEDS: SCOPOLAMINE HYDROBROMIDE 1 MG/3 DAYS PATCH TD SCH (18:41)
[2018-02-22] MEDS ORDERED: hydrALAZINE 20 MG/ML VIAL IVP PRN (18:55)
--- NOTE | 2018-02-22 18:55 | HOSPPROG ---
Hospitalist Progress Note Assessment/Plan: 58 yo M w seizure, 3 cm brain tumor, pathologic hip fracture Pt in surgery today. Not seen. 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 -cont decadron -continue keppra -s/presection 02/22: post op care preoperative cardiac eval: normal ekg on presentation able to do > 4 mets at baseline to OR w/out further workup or intervention hip fracture: MARCELLUS today surgeon notes poor quality of bone, not clearly metastatic, could just be osteoporosis longstanding vegan, may have nutritionally based osteoporosis metastatic workup: psa normal really, no evidence of metastatic disease femoral head sent for path pain: prn dialudid, prn oxy code: full Plan: -post op care per NS -restart AC soon -BP goals per NS -ICU care today Subjective: in surgery Objective: Vital Signs Temp Pulse Resp BP Pulse Ox 36.7 C 67 16 138/71 H 94 02/22/18 18:25 02/22/18 18:25 02/22/18 18:25 02/22/18 18:25 02/22/18 18:25 Laboratory Results 02/22/18 04:35 02/20/18 05:26 02/21/18 02/22/18 02/23/18 05:59 05:59 05:59 Intake Total 1600 2305 1700 Output Total 3079 419 3480 Balance 475 1355 340 PT 14.6 SEC (12.0-15.0) 02/17/18 16:10 INR 1.12 (0.83-1.16) 02/17/18 16:10 ICD10 Worksheet Patient Problems: Problems Problem Status Onset Altered mental state Acute Brain lesion Acute Elevated d-dimer Acute Glucosuria Acute Hypoxemia Acute Rhabdomyolysis Acute Traumatic compression fracture of T5 thoracic vertebra Acute Vomiting Acute
[2018-02-22] MEDS ORDERED: niCARdipine/NACL 200 ML IV SCH (19:00)
[2018-02-22] MEDS: HYDROmorphONE/DILAUDID 1 MG/ML INJ IVP PRN ×2 (19:55→23:54)
[2018-02-23] MEDS: oxyCODONE IR 5 MG TAB PO PRN ×4 (04:11→23:45)
[2018-02-23] MEDS: DEXAMETHASONE 4 MG/ML VIAL IVP SCH ×4 (05:06→23:18)
[2018-02-23] MEDS: ceFAZolin 2 GM/DEXTROSE 100 ML IV SCH ×2 (05:06→14:58)
--- NOTE | 2018-02-23 07:52 | NEUSURGPN ---
Date of Surgery: 02/22/18 Post Op Day: 1 Assessment/Plan: Assessment: 68 yo male with apparent seizure and findings of 3 cm R frontal mass after fall resulting in bilateral hip fx, one was operative. Query primary vs. metastasis also with subacute T5 compression fracture. 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 Discussed with patient we will need to wait for final pathology to anticipate prognosis. -s/p surgery-incision site looks fine -GEORGE in place -Patient was presented at Tumor board. S/P biopsy and resection. -for the subacute T5 compression fx, patient currently does not have pain in this location. Will continue to monitor as weight bearing with ortho is increased. If patient becomes symptomatic will require BIOMEDICAL FIELD SERVICE ENGINEER brace. -post op MRI pending this am -continue dex 4q6 -continue Keppra 1gm BID -call with any questions or concerns -pt understands and agrees -d/w Dr. Tristan Subjective: Awake and alert. Rested fine overnight. No neck/chest/abd or gu complaints. No f/c/n/v/d. Objective: AxO x4 PERRLA CN 2-12 grossly intact MOSS x4 5/5 BUE lower extremity exam limited r/t s/p hip fracture CDI, GEORGE in place Neuro Check Frequency: per ordered Urinary Catheter in Place: No - Physician Discussed Patient with : [facility] Neurosurgery Physical Exam - Vitals, I&O, Labs I and O 02/22/18 02/23/18 02/24/18 05:59 05:59 05:59 Intake Total 2305 1952 Output Total 950 2270 Balance 1355 -317 Weight 66.9 kg Intake: Oral (ml) 550 IV Intake (ml) 1755 1953 Output: Urine (ml) 550 1850 Bedpan 650 Catheter 550 1200 Estimated Blood Loss (ml) 400 50 GEORGE Drain Output (ml) 370 #1 Right Head Michael 370 Serrano Other: Intake Quantity Yes Sufficient Number of Stools Bedpan 1 Vital Signs Temp Pulse Resp BP Pulse Ox 36.9 C 80 16 138/50 H 97 02/23/18 05:00 02/23/18 05:00 02/23/18 05:00 02/23/18 05:00 02/23/18 05:00 Laboratory Results 02/23/18 05:00 02/20/18 05:26 ICD10 Worksheet Patient Problems: Problems Problem Status Onset Altered mental state Acute Brain lesion Acute Elevated d-dimer Acute Glucosuria Acute Hypoxemia Acute Rhabdomyolysis Acute Traumatic compression fracture of T5 thoracic vertebra Acute Vomiting Acute
[2018-02-23] MEDS: levETIRAcetam 500 MG TAB PO SCH ×2 (09:35→21:03)
[2018-02-23] MEDS: FAMOTIDINE 20 MG TAB PO SCH ×2 (09:36→21:03)
[2018-02-23] MEDS: SENNOSIDES/DOCUSATE SODIUM TAB PO SCH ×2 (09:36→21:03)
--- NOTE | 2018-02-23 12:45 | HOSPPROG ---
Hospitalist Progress Note Assessment/Plan: 58 yo M admitted following acute seizure. A 3 cm brain tumor found, pathologic hip fracture due to fall. He had Right sided craniectomy and resection of tumor on 02/22. Pathology is pending, but possible Glioblastoma Pt in surgery today. Not seen. 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 Left Acetabular fracture: non surgical Right Femoral Neck Fracture, s/p total hip arthroplasty on 02/21 surgeon notes poor quality of bone, not clearly metastatic, could just be osteoporosis longstanding vegan, may have nutritionally based osteoporosis metastatic workup: psa normal really, no evidence of metastatic disease femoral head sent for path pain: prn dialudid, prn oxy code: full Plan: -post op care: BP mgmt, Pain mgmt -await repeat MRI -trend h/h. Transfuse if needed. -cont Decadron and Keppra -Await Path -PT/OT -Needs Chemical DVT prophylaxis once ok with NS Subjective: pain well controlled. no cp or sob. no n/v. BP is ok Objective: Vital Signs Temp Pulse Resp BP Pulse Ox 36.8 C 72 20 103/51 L 94 02/23/18 12:00 02/23/18 12:00 02/23/18 12:00 02/23/18 12:00 02/23/18 12:00 Laboratory Results 02/23/18 05:00 02/20/18 05:26 02/22/18 02/23/18 02/24/18 05:59 05:59 05:59 Intake Total 2305 1953 150 Output Total 950 2270 290 Balance 1355 -317 -140 PT 14.6 SEC (12.0-15.0) 02/17/18 16:10 INR 1.12 (0.83-1.16) 02/17/18 16:10 - Physical Exam Constitutional: no apparent distress Eyes: PERRL Ears, Nose, Mouth, Throat: moist mucous membranes, hearing normal Cardiovascular: regular rate and rhythym, No edema Respiratory: no respiratory distress, no rales or rhonchi, clear to auscultation Gastrointestinal: normoactive bowel sounds, soft, non-tender abdomen Skin: warm Neurologic: AAOx3 Psychiatric: interacting appropriately, not anxious, not encephalopathic Lymph, Heme, Immunologic: No petechiae ICD10 Worksheet Patient Problems: Problems Problem Status Onset Altered mental state Acute Brain lesion Acute Elevated d-dimer Acute Glucosuria Acute Hypoxemia Acute Rhabdomyolysis Acute Traumatic compression fracture of T5 thoracic vertebra Acute Vomiting Acute
[2018-02-23] MEDS ORDERED: GADOBUTROL 10 ML VIAL IVP ONE (14:27)
--- NOTE | 2018-02-23 15:33 | SOAPPROG ---
SOAP Progress Note Assessment/Plan: Assessment: Postop day 2 status post right posterior approach total hip arthroplasty with open reduction internal fixation of the greater trochanter Plan: Weightbear as tolerated with assistance to the right lower extremity, foot flat weight-bearing to the left lower extremity with a walker, PT/OT DVT prophylaxis: Lovenox 40 mg daily once cleared by Neurosurgery, Emiliano clancy and SCDs Incentive spirometry 10 times per hour Analgesics: P.o. Narcotics, wean off when tolerated, then transition to Celebrex and Tylenol Disposition: Pending 02/22/18 07:40 02/22/18 07:43 02/23/18 15:33 Subjective: Patient awake and conversive. very tired. his right hip is sore. Difficulty getting comfortable. Denies chest pain shortness of breath nausea vomiting numbness or tingling Objective: Vital Signs Temp Pulse Resp BP Pulse Ox 36.8 C 62 20 108/54 L 95 02/23/18 12:00 02/23/18 15:00 02/23/18 15:00 02/23/18 15:00 02/23/18 15:00 Laboratory Results 02/23/18 05:00 02/20/18 05:26 02/22/18 02/23/18 02/24/18 05:59 05:59 05:59 Intake Total 2305 1953 150 Output Total 950 2270 290 Balance 1355 -317 -140 PT 14.6 SEC (12.0-15.0) 02/17/18 16:10 INR 1.12 (0.83-1.16) 02/17/18 16:10 Awake alert and oriented x3 No acute distress Right hip: No ecchymosis, moderate swelling Thigh and calf compartments soft compressible Sensation intact to light touch L4-S1 Motor intact to EHL FHL tibialis anterior gastrocsoleus Palpable DP PT pulses ICD10 Worksheet Patient Problems: Problems Problem Status Onset Altered mental state Acute Brain lesion Acute Elevated d-dimer Acute Glucosuria Acute Hypoxemia Acute Rhabdomyolysis Acute Traumatic compression fracture of T5 thoracic vertebra Acute Vomiting Acute
[2018-02-24] MEDS: DEXAMETHASONE 4 MG/ML VIAL IVP SCH ×4 (06:26→23:50)
--- NOTE | 2018-02-24 07:29 | SOAPPROG ---
DOT Progress Note Assessment/Plan: Assessment/Plan: Assessment: 68 yo male with apparent seizure and findings of 3 cm R frontal mass after fall resulting in bilateral hip fx, one was operative. Query primary vs. metastasis also with subacute T5 compression fracture. POD #2 s/p right sided craniotomy for resection of tumor. Post op MRI with good resection. 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 Discussed with patient we will need to wait for final pathology to anticipate prognosis. -s/p surgery-incision site looks fine -GEORGE removed this AM. -Start Lovenox 40 mg SQ daily today. -for the subacute T5 compression fx, patient currently does not have pain in this location. Will continue to monitor as weight bearing with ortho is increased. If patient becomes symptomatic will require CIRCULATION LIBRARIAN brace. -continue dex 4q6 -continue Keppra 1gm BID -call with any questions or concerns -DC Planning for Rehab -d/w Dr. Tristan Subjective: Awake and alert. At well last night. No neck/chest/abd or gu complaints. No f/c /n/v/d. Objective: AxO x4 PERRLA CN 2-12 grossly intact MOSS x4 5/5 BUE lower extremity exam limited r/t s/p hip fracture 02/24/18 07:27 02/24/18 07:29 Objective: Vital Signs Temp Pulse Resp BP Pulse Ox 36.6 C 64 19 119/56 L 97 02/23/18 20:00 02/24/18 06:00 02/24/18 06:00 02/24/18 06:00 02/24/18 06:00 Laboratory Results 02/23/18 05:00 02/20/18 05:26 02/23/18 02/24/18 02/25/18 05:59 05:59 05:59 Intake Total 1953 1150 Output Total 2270 1495 Balance -317 -345 PT 14.6 SEC (12.0-15.0) 02/17/18 16:10 INR 1.12 (0.83-1.16) 02/17/18 16:10 ICD10 Worksheet Patient Problems: Problems Problem Status Onset Altered mental state Acute Brain lesion Acute Elevated d-dimer Acute Glucosuria Acute Hypoxemia Acute Rhabdomyolysis Acute Traumatic compression fracture of T5 thoracic vertebra Acute Vomiting Acute
--- NOTE | 2018-02-24 08:00 | SOAPPROG ---
SOAP Progress Note Assessment/Plan: Assessment: Postop day 3 status post right posterior approach total hip arthroplasty with open reduction internal fixation of the greater trochanter Plan: Weightbear as tolerated with assistance to the right lower extremity, foot flat weight-bearing to the left lower extremity with a walker, PT/OT DVT prophylaxis: Lovenox 40 mg daily once cleared by Neurosurgery, Emiliano clancy and SCDs Incentive spirometry 10 times per hour Analgesics: P.o. Narcotics, wean off when tolerated, then transition to Celebrex and Tylenol Disposition: Pending 02/22/18 07:40 02/22/18 07:43 02/23/18 15:33 02/24/18 07:59 Subjective: Awake and conversive. Still very drowsy. Difficulty participating with PT. Objective: Vital Signs Temp Pulse Resp BP Pulse Ox 36.6 C 66 21 H 120/64 99 02/23/18 20:00 02/24/18 07:00 02/24/18 07:00 02/24/18 07:00 02/24/18 07:00 Laboratory Results 02/23/18 05:00 02/20/18 05:26 02/23/18 02/24/18 02/25/18 05:59 05:59 05:59 Intake Total 1953 1150 Output Total 2270 1495 Balance -317 -345 PT 14.6 SEC (12.0-15.0) 02/17/18 16:10 INR 1.12 (0.83-1.16) 02/17/18 16:10 Awake alert and oriented x3 No acute distress Easy nonlabored breathing Right hip: No ecchymosis, moderate swelling Thigh and calf compartments soft compressible Dressing clean dry intact no erythema drainage or signs of infection Sensation intact to light touch L4-S1 Motor intact to EHL FHL tibialis anterior gastrocsoleus Palpable DP PT pulses - Time Spent With Patient Time Spent With Patient: 5 ICD10 Worksheet Patient Problems: Problems Problem Status Onset Altered mental state Acute Brain lesion Acute Elevated d-dimer Acute Glucosuria Acute Hypoxemia Acute Rhabdomyolysis Acute Traumatic compression fracture of T5 thoracic vertebra Acute Vomiting Acute
[2018-02-24] MEDS: ENOXAPARIN 40 MG/0.4 ML SYR SC SCH (08:53)
[2018-02-24] MEDS: SENNOSIDES/DOCUSATE SODIUM TAB PO SCH ×2 (08:53→20:30)
[2018-02-24] MEDS: FAMOTIDINE 20 MG TAB PO SCH ×2 (08:55→20:31)
[2018-02-24] MEDS: levETIRAcetam 500 MG TAB PO SCH ×2 (08:55→20:30)
[2018-02-24 09:32] LABS: PLATELET COUNT 176 10^3/uL (150-400)
--- NOTE | 2018-02-24 11:49 | HOSPPROG ---
Hospitalist Progress Note Assessment/Plan: 58 yo M admitted following acute seizure. A 3 cm brain tumor found, pathologic hip fracture due to fall. He had Right sided craniectomy and resection of tumor on 02/22. 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 Left Acetabular fracture: non surgical Right Femoral Neck Fracture, s/p total hip arthroplasty on 02/21 surgeon notes poor quality of bone, not clearly metastatic, could just be osteoporosis longstanding vegan, may have nutritionally based osteoporosis metastatic workup: psa normal really, no evidence of metastatic disease femoral head sent for path pain: prn dialudid, prn oxy code: full DVT proph: Lovenox restarted today Plan: -post op care: BP mgmt, Pain mgmt -cont Decadron and Keppra -Await Path -PT/OT -Ok for Med surg Subjective: no cp or sob. bp is ok. pain is well controlled Objective: Vital Signs Temp Pulse Resp BP Pulse Ox 37.0 C 75 20 130/69 H 94 02/24/18 08:00 02/24/18 08:00 02/24/18 08:00 02/24/18 08:00 02/24/18 08:00 Laboratory Results 02/24/18 09:00 02/24/18 09:00 02/23/18 02/24/18 02/25/18 05:59 05:59 05:59 Intake Total 1953 1150 Output Total 2270 1495 Balance -317 -345 PT 14.6 SEC (12.0-15.0) 02/17/18 16:10 INR 1.12 (0.83-1.16) 02/17/18 16:10 - Physical Exam Constitutional: no apparent distress Eyes: PERRL Ears, Nose, Mouth, Throat: moist mucous membranes, hearing normal, ears appear normal Cardiovascular: regular rate and rhythym, No edema Respiratory: no respiratory distress, no rales or rhonchi, clear to auscultation Gastrointestinal: normoactive bowel sounds, soft, non-tender abdomen Skin: warm Neurologic: AAOx3 Psychiatric: interacting appropriately, not anxious, not encephalopathic Lymph, Heme, Immunologic: No petechiae ICD10 Worksheet Patient Problems: Problems Problem Status Onset Altered mental state Acute Brain lesion Acute Elevated d-dimer Acute Glucosuria Acute Hypoxemia Acute Rhabdomyolysis Acute Traumatic compression fracture of T5 thoracic vertebra Acute Vomiting Acute
--- NOTE | 2018-02-24 15:50 | ASMTCMCOM ---
CM Note CM Note Notes: Spoke with Galen, patient's brother who had requested information from case management. Galen is concerned about rehab care for his brother. He was informed inpatient rehab was in the process of evaluating patient for their program. We discussed other options (SNF rehab and home health care) as well. Galen was appreciative of the information. Therapies are still in process of evaluation. D/C plan TBD when evals are complete. CM will follow. Date Signed: 02/24/2018 03:49 PM Electronically Signed By:Alma Silverio LCSW
[2018-02-24] MEDS: oxyCODONE IR 5 MG TAB PO PRN (20:29)
[2018-02-25] MEDS: DEXAMETHASONE 4 MG/ML VIAL IVP SCH ×2 (05:31→13:15)
[2018-02-25] MEDS: CYCLOBENZAPRINE 10 MG TAB PO PRN ×2 (05:44→22:19)
[2018-02-25] MEDS: SENNOSIDES/DOCUSATE SODIUM TAB PO SCH ×2 (09:30→20:18)
[2018-02-25] MEDS: FAMOTIDINE 20 MG TAB PO SCH ×2 (09:30→22:02)
[2018-02-25] MEDS: levETIRAcetam 500 MG TAB PO SCH ×2 (09:30→22:01)
[2018-02-25] MEDS: ACETAMINOPHEN 325 MG TAB PO PRN ×2 (09:31→14:22)
[2018-02-25] MEDS: ENOXAPARIN 40 MG/0.4 ML SYR SC SCH (09:33)
[2018-02-25] MEDS: POLYETHYLENE GLYCOL 3350 17 GM PKT PO PRN (09:33)
--- NOTE | 2018-02-25 11:19 | ASMTCMCOM ---
CM Note CM Note Notes: PT/OT/CORRECTIONS UNIT SUPERVISOR all recommending In-Pt Rehab. In-Pt Rehab in screening process. CM to follow. D/C Plan: Possibly In-Pt Rehab Date Signed: 02/25/2018 11:18 AM Electronically Signed By:Dorita Fishman
--- NOTE | 2018-02-25 11:39 | SOAPPROG ---
DOT Progress Note Assessment/Plan: Assessment/Plan: Assessment: 68 yo male with apparent seizure and findings of 3 cm R frontal mass after fall resulting in bilateral hip fx, one was operative. Query primary vs. metastasis also with subacute T5 compression fracture. POD #3 s/p right sided craniotomy for resection of tumor. Post op MRI with good resection. -path pending Plan: -follow medical workup for other mets, highly suspect glioma based on imaging. Discussed with patient we will need to wait for final pathology to anticipate prognosis. -On Lovenox 40 mg SQ daily today. -for the subacute T5 compression fx, patient currently does not have pain in this location. Will continue to monitor as weight bearing with ortho is increased. If patient becomes symptomatic will require SAMPLE MAKER ORIGINAL brace. -continue dex 4q6 -continue Keppra 1gm BID -call with any questions or concerns -DC Planning for Rehab -d/w Dr. Tristan Subjective: Awake and alert. Feels generally weak. No neck/chest/abd or gu complaints. No f /c/n/v/d. Objective: AxO x4 PERRLA CN 2-12 grossly intact MOSS x4 5/5 BUE lower extremity exam limited r/t s/p hip fracture dressings: No active drainage. stapled telfa in place 02/25/18 11:39 Objective: Vital Signs Temp Pulse Resp BP Pulse Ox 36.8 C 66 16 114/60 95 02/25/18 08:00 02/25/18 08:00 02/25/18 08:00 02/25/18 08:00 02/25/18 08:00 Laboratory Results 02/24/18 09:00 02/24/18 09:00 02/24/18 02/25/18 02/26/18 05:59 05:59 05:59 Intake Total 1150 500 Output Total 1495 1250 Balance -345 -750 PT 14.6 SEC (12.0-15.0) 02/17/18 16:10 INR 1.12 (0.83-1.16) 02/17/18 16:10 ICD10 Worksheet Patient Problems: Problems Problem Status Onset Altered mental state Acute Brain lesion Acute Elevated d-dimer Acute Glucosuria Acute Hypoxemia Acute Rhabdomyolysis Acute Traumatic compression fracture of T5 thoracic vertebra Acute Vomiting Acute
[2018-02-25] MEDS: oxyCODONE IR 5 MG TAB PO PRN (14:23)
--- NOTE | 2018-02-25 15:07 | SOAPPROG ---
SOAP Progress Note Assessment/Plan: Assessment: Postop day 4 status post right posterior approach total hip arthroplasty with open reduction internal fixation of the greater trochanter Plan: Weightbear as tolerated with assistance to the right lower extremity, foot flat weight-bearing to the left lower extremity with a walker, PT/OT DVT prophylaxis: Lovenox 40 mg daily once cleared by Neurosurgery, Emiliano clancy and SCDs Incentive spirometry 10 times per hour Analgesics: P.o. Narcotics, wean off when tolerated, then transition to Celebrex and Tylenol Disposition: Pending 02/22/18 07:40 02/22/18 07:43 02/23/18 15:33 02/24/18 07:59 02/25/18 15:06 Subjective: No acute events. Still discomfort with right hip and weight-bearing as tolerated. Also discomfort in the left hip. Denies fevers chills nausea vomiting chest pain shortness of breath numbness or tingling Objective: Vital Signs Temp Pulse Resp BP Pulse Ox 36.8 C 72 14 100/59 L 90 L 02/25/18 11:47 02/25/18 11:47 02/25/18 11:47 02/25/18 11:47 02/25/18 11:47 Laboratory Results 02/24/18 09:00 02/24/18 09:00 02/24/18 02/25/18 02/26/18 05:59 05:59 05:59 Intake Total 1150 500 Output Total 1495 1250 Balance -345 -750 PT 14.6 SEC (12.0-15.0) 02/17/18 16:10 INR 1.12 (0.83-1.16) 02/17/18 16:10 Awake alert and oriented x3 No acute distress Right hip: No ecchymosis, mild swelling Thigh and calf compartments soft compressible Sensation intact to light touch L4-S1 Motor intact to EHL FHL tibialis anterior gastrocsoleus Palpable DP PT pulses - Time Spent With Patient Time Spent With Patient: 10 ICD10 Worksheet Patient Problems: Problems Problem Status Onset Altered mental state Acute Brain lesion Acute Elevated d-dimer Acute Glucosuria Acute Hypoxemia Acute Rhabdomyolysis Acute Traumatic compression fracture of T5 thoracic vertebra Acute Vomiting Acute
[2018-02-25] MEDS: SCOPOLAMINE HYDROBROMIDE 1 MG/3 DAYS PATCH TD SCH (16:19)
--- NOTE | 2018-02-25 18:02 | HOSPPROG ---
Hospitalist Progress Note Assessment/Plan: 58 yo M admitted following acute seizure. A 3 cm brain tumor found, pathologic hip fracture due to fall. He had Right sided craniectomy and resection of tumor on 02/22. Pathology is pending, but possible Glioblastoma. 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 s/p resection -cont decadron -await Path s/p right sided craniectomy and tumor resection -post op care per NS -BP well controlled -Pain mgmt Post operative anemia -H/H stable. Left Acetabular fracture: non surgical Right Femoral Neck Fracture, s/p total hip arthroplasty on 02/21 surgeon notes poor quality of bone, not clearly metastatic, could just be osteoporosis longstanding vegan, may have nutritionally based osteoporosis metastatic workup: psa normal really, no evidence of metastatic disease femoral head sent for path pain: prn dialudid, prn oxy code: full DVT proph: Lovenox Plan: -post op care: BP mgmt, Pain mgmt -cont Decadron and Keppra -Await Path -Rehab pending -PT/OT -Cont Lovenox -Remove Ferguson -bowel protocol Subjective: no cp or sob. no n/v Objective: Vital Signs Temp Pulse Resp BP Pulse Ox 36.9 C 57 L 14 97/60 L 90 L 02/25/18 16:00 02/25/18 16:00 02/25/18 16:00 02/25/18 16:00 02/25/18 16:00 Laboratory Results 02/24/18 09:00 02/24/18 09:00 02/24/18 02/25/18 02/26/18 05:59 05:59 05:59 Intake Total 1150 500 600 Output Total 1495 1250 Balance -345 -750 600 PT 14.6 SEC (12.0-15.0) 02/17/18 16:10 INR 1.12 (0.83-1.16) 02/17/18 16:10 - Physical Exam Constitutional: no apparent distress Eyes: PERRL Ears, Nose, Mouth, Throat: moist mucous membranes, hearing normal Cardiovascular: regular rate and rhythym, No edema Respiratory: no respiratory distress, no rales or rhonchi Gastrointestinal: normoactive bowel sounds, soft, non-tender abdomen Skin: warm Musculoskeletal: generalized weakness Neurologic: AAOx3 Psychiatric: interacting appropriately, not anxious, not encephalopathic ICD10 Worksheet Patient Problems: Problems Problem Status Onset Altered mental state Acute Brain lesion Acute Elevated d-dimer Acute Glucosuria Acute Hypoxemia Acute Rhabdomyolysis Acute Traumatic compression fracture of T5 thoracic vertebra Acute Vomiting Acute
[2018-02-25] MEDS: DEXAMETHASONE 4 MG TAB PO SCH (22:01)
[2018-02-26] MEDS: DEXAMETHASONE 4 MG TAB PO SCH ×3 (06:24→21:49)
[2018-02-26] MEDS: ENOXAPARIN 40 MG/0.4 ML SYR SC SCH (09:12)
[2018-02-26] MEDS: ACETAMINOPHEN 325 MG TAB PO PRN ×2 (09:12→14:56)
[2018-02-26] MEDS: levETIRAcetam 500 MG TAB PO SCH ×2 (09:13→21:49)
[2018-02-26] MEDS: POLYETHYLENE GLYCOL 3350 17 GM PKT PO PRN (09:13)
[2018-02-26] MEDS: SENNOSIDES/DOCUSATE SODIUM TAB PO SCH ×2 (09:13→21:49)
[2018-02-26] MEDS: FAMOTIDINE 20 MG TAB PO SCH ×2 (09:13→21:48)
[2018-02-26] MEDS: BISACODYL 10 MG SUPP PR PRN (09:17)
--- NOTE | 2018-02-26 10:25 | SOAPPROG ---
SOAP Progress Note Assessment/Plan: Assessment/Plan: Assessment: 68 yo male with apparent seizure and findings of 3 cm R frontal mass after fall resulting in bilateral hip fx, one was operative. Query primary vs. metastasis also with subacute T5 compression fracture. POD #4 s/p right sided craniotomy for resection of tumor. Post op MRI with good resection. -path pending Plan: -follow medical workup for other mets, highly suspect glioma based on imaging. Discussed with patient we will need to wait for final pathology to anticipate prognosis. -On Lovenox 40 mg SQ daily. -for the subacute T5 compression fx, patient currently does not have pain in this location. Will continue to monitor as weight bearing with ortho is increased. If patient becomes symptomatic will require NIGHT TIME BABYSITTER brace. - dex 4q8 -continue Keppra 1gm BID -call with any questions or concerns -DC Planning for Rehab Subjective: Awake and alert. Feels generally weak. Mobility limtited by hip. No neck/chest/ abd or gu complaints. No f/c/n/v/d. Objective: AxO x4 PERRLA CN 2-12 grossly intact MOSS x4 5/5 BUE lower extremity exam limited r/t s/p hip fracture dressings: No active drainage. stapled telfa in place Subjective: Just got out of bathroom. Objective: Vital Signs Temp Pulse Resp BP Pulse Ox 36.8 C 69 16 114/58 L 89 L 02/26/18 07:40 02/26/18 07:40 02/26/18 07:40 02/26/18 07:40 02/26/18 07:40 Laboratory Results 02/24/18 09:00 02/24/18 09:00 02/25/18 02/26/18 02/27/18 05:59 05:59 05:59 Intake Total 500 1100 Output Total 1250 1550 850 Balance -750 -450 -850 PT 14.6 SEC (12.0-15.0) 02/17/18 16:10 INR 1.12 (0.83-1.16) 02/17/18 16:10 Neuro: MOSS, sens +LT follows commands Incision: Scalp CDI ICD10 Worksheet Patient Problems: Problems Problem Status Onset Altered mental state Acute Brain lesion Acute Elevated d-dimer Acute Glucosuria Acute Hypoxemia Acute Rhabdomyolysis Acute Traumatic compression fracture of T5 thoracic vertebra Acute Vomiting Acute
--- NOTE | 2018-02-26 11:28 | SOAPPROG ---
SOAP Progress Note Assessment/Plan: Assessment/Plan: Assessment: 68 yo male with apparent seizure and findings of 3 cm R frontal mass after fall resulting in bilateral hip fx, one was operative. Query primary vs. metastasis also with subacute T5 compression fracture. POD #5 s/p right sided craniotomy for resection of tumor. Post op MRI with good resection. -path pending -from Neuro standpoint he may go to rehab. Hip is currently most limiting his mobility Plan: -will decrease dex to 4Q8 -follow medical workup for other mets, highly suspect glioma based on imaging. Discussed with patient we will need to wait for final pathology to anticipate prognosis. -On Lovenox 40 mg SQ daily. -for the subacute T5 compression fx, patient currently does not have pain in this location. Will continue to monitor as weight bearing with ortho is increased. If patient becomes symptomatic will require PERSONAL FINANCIAL REPRESENTATIVE brace. -continue Keppra 1gm BID -call with any questions or concerns -DC Planning for Rehab Subjective: Awake and alert. Feels generally weak. Mobility limtited by hip. No neck/chest/ abd or gu complaints. No f/c/n/v/d. Objective: AxO x4 PERRLA CN 2-12 grossly intact MOSS x4 5/5 BUE lower extremity exam limited r/t s/p hip fracture dressings: No active drainage. stapled telfa in place 02/26/18 11:26 02/26/18 11:28 Objective: Vital Signs Temp Pulse Resp BP Pulse Ox 36.8 C 69 16 114/58 L 89 L 02/26/18 07:40 02/26/18 07:40 02/26/18 07:40 02/26/18 07:40 02/26/18 07:40 Laboratory Results 02/24/18 09:00 02/24/18 09:00 02/25/18 02/26/18 02/27/18 05:59 05:59 05:59 Intake Total 500 1100 Output Total 1250 1550 850 Balance -750 -450 -850 PT 14.6 SEC (12.0-15.0) 02/17/18 16:10 INR 1.12 (0.83-1.16) 02/17/18 16:10 ICD10 Worksheet Patient Problems: Problems Problem Status Onset Altered mental state Acute Brain lesion Acute Elevated d-dimer Acute Glucosuria Acute Hypoxemia Acute Rhabdomyolysis Acute Traumatic compression fracture of T5 thoracic vertebra Acute Vomiting Acute
--- NOTE | 2018-02-26 13:25 | HOSPPROG ---
Hospitalist Progress Note Assessment/Plan: #Seizure: 2/2 brain tumor. Keppra #Brain mass: -POD # 5 right craniotomy DIAMOND BROKER primary vs metastatic. s/p resection. Path pending -cont decadron #Post operative anemia -H/H stable. #Left Acetabular fracture: non-surgical. Path pending #Right Femoral Neck Fracture, s/p total hip arthroplasty on 02/21 surgeon notes poor quality of bone, not clearly metastatic, could just be osteoporosis longstanding vegan, may have nutritionally based osteoporosis #Subacute T5 compression fracture -if becomes painful, will need FARMWORKER MACHINE brace #DVT ppx: SCDs #Disp: inpatient admission for PT, BP control Subjective: tired, frustrated. "want a new body" Objective: Vital Signs Temp Pulse Resp BP Pulse Ox 36.8 C 69 16 114/58 L 89 L 02/26/18 07:40 02/26/18 07:40 02/26/18 07:40 02/26/18 07:40 02/26/18 07:40 Laboratory Results 02/24/18 09:00 02/24/18 09:00 02/25/18 02/26/18 02/27/18 05:59 05:59 05:59 Intake Total 500 1100 Output Total 1250 1550 850 Balance -750 -450 -850 PT 14.6 SEC (12.0-15.0) 02/17/18 16:10 INR 1.12 (0.83-1.16) 02/17/18 16:10 - Time Spent With Patient Time Spent with Patient: greater than 35 minutes Time Spent with Patient: Greater than 35 minutes spent on this patients care, greater than 50% of time spent counseling, educating, and coordinating care regarding the above mentioned plan. - Physical Exam Constitutional: no apparent distress, other (fatigued) Eyes: PERRL Ears, Nose, Mouth, Throat: moist mucous membranes Cardiovascular: regular rate and rhythym, No edema Respiratory: no respiratory distress Gastrointestinal: normoactive bowel sounds Genitourinary: No zhong in urethra Skin: warm Musculoskeletal: other (right scalp incision stapled) Neurologic: AAOx3, CN II-XII Intact Psychiatric: interacting appropriately ICD10 Worksheet Patient Problems: Problems Problem Status Onset Altered mental state Acute Brain lesion Acute Elevated d-dimer Acute Glucosuria Acute Hypoxemia Acute Rhabdomyolysis Acute Traumatic compression fracture of T5 thoracic vertebra Acute Vomiting Acute
[2018-02-26] MEDS: TAMSULOSIN HCL 0.4 MG CAP PO SCH (15:01)
[2018-02-27] MEDS: ACETAMINOPHEN 325 MG TAB PO PRN ×3 (03:07→14:49)
[2018-02-27] MEDS: CYCLOBENZAPRINE 10 MG TAB PO PRN ×2 (03:08→10:11)
[2018-02-27] MEDS: DEXAMETHASONE 4 MG TAB PO SCH ×3 (05:43→22:13)
[2018-02-27] MEDS ORDERED: TAMSULOSIN HCL 0.4 MG CAP PO SCH (09:00)
--- NOTE | 2018-02-27 09:00 | NEUSURGPN ---
Assessment/Plan: Assessment: 68 yo male with apparent seizure and findings of 3 cm R frontal mass after fall resulting in bilateral hip fx, one was operative. Query primary vs. metastasis also with subacute T5 compression fracture. POD #6 s/p right sided craniotomy for resection of tumor. Post op MRI with good resection. -path pending -from Neuro standpoint he may go to rehab. Hip is currently most limiting his mobility Plan: -will Continue Decadron 4Q8 -follow medical workup for other mets, highly suspect glioma based on imaging. Will await for final pathology to anticipate prognosis. -DVT prophx: TEDs, SCDs, lovenox -for the subacute T5 compression fx, patient currently does not have pain in this location. Will continue to monitor as weight bearing with ortho is increased. If patient becomes symptomatic will require CUSTOMER SERVICES COORDINATOR brace. -continue Keppra 1gm BID -call with any questions or concerns -DC Planning for Rehab Subjective: Denies any new headaches, nausea, dizziness. Objective: NAD A&Ox3 MOSS x4 5/5 BUE & BLE and equal Sensation intact Incision: stapled telfa in place Catheter Insertion Date: 02/21/18 - Physician Discussed Patient with Dr.: Kun Neurosurgery Physical Exam - Vitals, I&O, Labs I and O 02/26/18 02/27/18 02/28/18 05:59 05:59 05:59 Intake Total 1100 500 Output Total 1550 3900 Balance -450 -3400 Intake: Oral (ml) 1100 500 Output: Urine (ml) 1550 3900 Catheter 1550 3900 Other: Intake Quantity Yes Sufficient Number of Voids Catheter 1 Number of Stools Bedside Commode 1 Incontinence 1 Toilet 1 Bladder Scan Volume (ml) Catheter 956 Toilet 546 Vital Signs Temp Pulse Resp BP Pulse Ox 36.8 C 67 16 106/57 L 92 02/27/18 07:47 02/27/18 07:47 02/27/18 07:47 02/27/18 07:47 02/27/18 07:47 Laboratory Results 02/27/18 03:15 02/24/18 09:00 ICD10 Worksheet Patient Problems: Problems Problem Status Onset Altered mental state Acute Brain lesion Acute Elevated d-dimer Acute Glucosuria Acute Hypoxemia Acute Rhabdomyolysis Acute Traumatic compression fracture of T5 thoracic vertebra Acute Vomiting Acute
[2018-02-27] MEDS: levETIRAcetam 500 MG TAB PO SCH ×2 (10:11→22:10)
[2018-02-27] MEDS: SENNOSIDES/DOCUSATE SODIUM TAB PO SCH ×3 (10:12→22:13)
[2018-02-27] MEDS: ENOXAPARIN 40 MG/0.4 ML SYR SC SCH (10:12)
[2018-02-27] MEDS: FAMOTIDINE 20 MG TAB PO SCH ×2 (10:12→22:13)
[2018-02-27] MEDS: TAMSULOSIN HCL 0.4 MG CAP PO SCH (10:12)
[2018-02-27] MEDS ORDERED: NS 500 ML IV ONE (16:37)
--- NOTE | 2018-02-27 16:47 | HOSPPROG ---
Hospitalist Progress Note Assessment/Plan: Seizure: likely secondary to brain mass. status post craniotomy. on keppra with no further seizures. cont Brain mass- POD 6 status post craniotomy. neurosurgery following, concern for glioma. Pathology pending. Continue decadron and awaith pathology results, with keppra for seizure prophy Post operative anemia- H/H stable at this point. monitor Left Acetabular fracture: non-surgical. 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 Objective: Vital Signs Temp Pulse Resp BP Pulse Ox 36.6 C 110 H 12 92/48 L 92 02/27/18 16:00 02/27/18 16:00 02/27/18 16:00 02/27/18 16:00 02/27/18 16:00 Laboratory Results 02/27/18 03:15 02/24/18 09:00 02/26/18 02/27/18 02/28/18 05:59 05:59 05:59 Intake Total 1100 500 Output Total 1550 3900 Balance -450 -3400 PT 14.6 SEC (12.0-15.0) 02/17/18 16:10 INR 1.12 (0.83-1.16) 02/17/18 16:10 - Physical Exam Constitutional: no apparent distress, appears nourished, not in pain Eyes: PERRL, anicteric sclera, EOMI Ears, Nose, Mouth, Throat: moist mucous membranes, hearing normal, ears appear normal, no oral mucosal ulcers Cardiovascular: regular rate and rhythym, no murmur, rub, or gallop Respiratory: no respiratory distress, no rales or rhonchi, clear to auscultation Gastrointestinal: normoactive bowel sounds, soft, non-tender abdomen, no palpable masses Genitourinary: zhong in urethra Skin: no rashes or abrasions, no fluctuance, no induration Musculoskeletal: generalized weakness Neurologic: AAOx3, sensation intact bilaterally Psychiatric: interacting appropriately, not anxious, not encephalopathic, thought process linear Lymph, Heme, Immunologic: no cervical LAD, no supraclavicular LAD ICD10 Worksheet Patient Problems: Problems Problem Status Onset Altered mental state Acute Brain lesion Acute Elevated d-dimer Acute Glucosuria Acute Hypoxemia Acute Rhabdomyolysis Acute Traumatic compression fracture of T5 thoracic vertebra Acute Vomiting Acute
[2018-02-27] MEDS: LIDOCAINE 4%/MENTHOL 1% PATCH TD SCH (22:11)
[2018-02-27] MEDS: PATCH REMOVAL 1 EA PATCH TD SCH (22:12)
[2018-02-28] MEDS: DEXAMETHASONE 4 MG TAB PO SCH ×3 (05:02→21:16)
--- NOTE | 2018-02-28 09:52 | NEUSURGPN ---
Assessment/Plan: Assessment: 68 yo male with apparent seizure and findings of 3 cm R frontal mass after fall resulting in bilateral hip fx, one was operative. Query primary vs. metastasis also with subacute T5 compression fracture. POD #7 s/p right sided craniotomy for resection of tumor. Post op MRI with good resection. -path pending -from Neuro standpoint he may go to rehab. Plan: -1 week Decadron taper written to start today -Highly suspect glioma based on imaging. Will await for final pathology to anticipate prognosis. -DVT prophx: TEDs, SCDs, lovenox -for the subacute T5 compression fx, patient currently does not have pain in this location. Will continue to monitor as weight bearing with ortho is increased. If patient becomes symptomatic will require PERIODONTIST brace. -continue Keppra 1gm BID -call with any questions or concerns -DC Planning for Rehab Subjective: Denies any new headaches, nausea, dizziness or new pain Objective: NAD A&Ox3 MOSS x4 5/5 BUE & BLE and equal Sensation intact Incision: stapled telfa in place Catheter Insertion Date: 02/21/18 - Physician Discussed Patient with Dr.: Kun Neurosurgery Physical Exam - Vitals, I&O, Labs I and O 02/27/18 02/28/18 03/01/18 05:59 05:59 05:59 Intake Total 500 700 Output Total 3900 1550 Balance -3400 -850 Intake: Oral (ml) 500 200 IV Infused (ml) 500 Ns 500 ml @ 1500 mls/hr 500 IV ONCE ONE Rx#: [id number] Output: Urine (ml) 3900 1550 Catheter 3900 1550 Other: Intake Quantity Yes Sufficient Number of Voids Catheter 1 Number of Stools Bedside Commode 1 Incontinence 1 Toilet 1 Bladder Scan Volume (ml) Catheter 956 Toilet 546 Vital Signs Temp Pulse Resp BP Pulse Ox 36.4 C 73 18 123/71 H 96 02/28/18 08:00 02/28/18 08:00 02/28/18 08:00 02/28/18 08:00 02/28/18 08:00 Laboratory Results 02/27/18 03:15 02/24/18 09:00 ICD10 Worksheet Patient Problems: Problems Problem Status Onset Altered mental state Acute Brain lesion Acute Elevated d-dimer Acute Glucosuria Acute Hypoxemia Acute Rhabdomyolysis Acute Traumatic compression fracture of T5 thoracic vertebra Acute Vomiting Acute
[2018-02-28] MEDS ORDERED: *MD ORDERING ONLY-DEXAMETHASONE TAPER IVP/PO SCH (10:00)
[2018-02-28] MEDS: BISACODYL 10 MG SUPP PR PRN (10:17)
[2018-02-28] MEDS: TAMSULOSIN HCL 0.4 MG CAP PO SCH (10:37)
[2018-02-28] MEDS: SENNOSIDES/DOCUSATE SODIUM TAB PO SCH ×2 (10:37→19:46)
[2018-02-28] MEDS: levETIRAcetam 500 MG TAB PO SCH ×2 (10:37→19:46)
[2018-02-28] MEDS: FAMOTIDINE 20 MG TAB PO SCH ×2 (10:37→19:46)
[2018-02-28] MEDS: ENOXAPARIN 40 MG/0.4 ML SYR SC SCH (10:38)
[2018-02-28] MEDS: LIDOCAINE 4%/MENTHOL 1% PATCH TD SCH (11:13)
[2018-02-28] MEDS: SCOPOLAMINE HYDROBROMIDE 1 MG/3 DAYS PATCH TD SCH (15:27)
--- NOTE | 2018-02-28 17:10 | HOSPPROG ---
Hospitalist Progress Note Assessment/Plan: Seizure: likely secondary to brain mass. status post craniotomy. on keppra with no further seizures. cont Brain mass- POD 7 status post craniotomy. per neurosurgery decadrom taper but from their standpoint safe to discharge to rehab. Pathology pending. continue keppra 1gram bid Post operative anemia- H/H stable at this point. monitor Left Acetabular fracture: non-surgical. 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 Enema today. DVT ppx: SCDs Fluids- None Lytes- WNL Nutrition- regular Cor-Full Disp: inpatient admission for PT, BP control, seizures, brain mass. Objective: Vital Signs Temp Pulse Resp BP Pulse Ox 37.1 C 75 20 101/57 L 92 02/28/18 16:00 02/28/18 16:00 02/28/18 16:00 02/28/18 16:00 02/28/18 16:00 Laboratory Results 02/27/18 03:15 02/24/18 09:00 02/27/18 02/28/18 03/01/18 05:59 05:59 05:59 Intake Total 500 700 Output Total 3900 1550 Balance -3400 -850 PT 14.6 SEC (12.0-15.0) 02/17/18 16:10 INR 1.12 (0.83-1.16) 02/17/18 16:10 - Physical Exam Constitutional: no apparent distress, appears nourished, not in pain Eyes: PERRL, anicteric sclera, EOMI Ears, Nose, Mouth, Throat: moist mucous membranes, hearing normal, ears appear normal, no oral mucosal ulcers Cardiovascular: regular rate and rhythym, no murmur, rub, or gallop Respiratory: no respiratory distress, no rales or rhonchi, clear to auscultation Gastrointestinal: normoactive bowel sounds, soft, non-tender abdomen, no palpable masses Genitourinary: no bladder fullness, no bladder tenderness, no renal bruits Skin: no rashes or abrasions, no fluctuance, no induration Musculoskeletal: generalized weakness Neurologic: AAOx3, sensation intact bilaterally, CN II-XII Intact Psychiatric: interacting appropriately, not anxious, not encephalopathic, thought process linear Lymph, Heme, Immunologic: no cervical LAD, no supraclavicular LAD ICD10 Worksheet Patient Problems: Problems Problem Status Onset Altered mental state Acute Brain lesion Acute Elevated d-dimer Acute Glucosuria Acute Hypoxemia Acute Rhabdomyolysis Acute Traumatic compression fracture of T5 thoracic vertebra Acute Vomiting Acute
[2018-02-28] MEDS: POLYETHYLENE GLYCOL 3350 17 GM PKT PO PRN (19:46)
[2018-02-28] MEDS: PATCH REMOVAL 1 EA PATCH TD SCH (19:47)
[2018-02-28] MEDS: ACETAMINOPHEN 325 MG TAB PO PRN (20:00)
--- NOTE | 2018-02-28 21:38 | ASMTCMCOM ---
CM Note CM Note Notes: Pt pathology still pending. Pt still under consideration for [facility] inpatient rehab. [facility] wants to know about pt d/c options from their program as he likely will not be able to return home due to all his stairs. Pt describes a substantial local support network and this is evidenced by the numerous visitors and meals being delivered. Pt brother/MARIANNA Aaron reports he would be a d/c option from rehab if pt was willing to go to his home. [facility] also wants pt input on their program, admissions phone number left with pt today. Spoke with pt and friends about SNFs in case pt does not qualify or want to go to [facility]. SNF referrals sent in [employer]. So far, the SNFs need to know medical treatment plan after pathology is in in order to assess if they can meet pt needs. Galen indicates if pt cannot get into [facility] the likely first choice SNF is [facility]. CM will continue to follow. Date Signed: 02/28/2018 04:53 PM Electronically Signed By:SULEMA Bond
[2018-03-01 05:46] LABS: PLATELET COUNT 266 10^3/uL (150-400)
--- NOTE | 2018-03-01 05:54 | CPEKG ---
Test Reason : OPEN Blood Pressure : / mmHG Vent. Rate : 089 BPM Atrial Rate : 224 BPM P-R Int : 180 ms QRS Dur : 081 ms QT Int : 351 ms P-R-T Axes : 093 045 040 degrees QTc Int : 428 ms Atrial fibrillation Minimal ST depression, inferior leads Confirmed by Noel Lee ([id number]) on 03/01/2018 5:53:43 AM Referred By: Confirmed By:Noel Lee
--- NOTE | 2018-03-01 07:20 | NEUSURGPN ---
Date of Surgery: 02/22/18 Post Op Day: 7 Assessment/Plan: Assessment: 68 yo male with apparent seizure and findings of 3 cm R frontal mass after fall resulting in bilateral hip fx, one was operative. Query primary vs. metastasis also with subacute T5 compression fracture. Plan: -POD #7 s/p right sided craniotomy for resection of tumor. Post op MRI with good resection. -path pending still this am -from Neuro standpoint he may go to rehab -1 week Decadron taper written to start yesterday -highly suspect glioma based on imaging. Will await for final pathology to anticipate prognosis -DVT prophx: TEDs, SCDs, lovenox -for the subacute T5 compression fx, patient currently does not have pain in this location. Will continue to monitor as weight bearing with ortho is increased. 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 -continue Keppra 1gm BID -call with any questions or concerns -DC Planning for Rehab Subjective: Awake and alert. No new complaints or concerns. No f/c/n/v/d. Objective: NAD A&Ox3/PERRLA/EOMI MOSS x4 5/5 BUE & BLE and equal Sensation intact Incision: CDI Neuro Check Frequency: per routine Urinary Catheter in Place: No Catheter Insertion Date: 02/21/18 - Physician Discussed Patient with : Kun Neurosurgery Physical Exam - Vitals, I&O, Labs I and O 02/28/18 03/01/18 03/02/18 05:59 05:59 05:59 Intake Total 700 400 Output Total 1550 2100 Balance -850 -1700 Intake: Oral (ml) 200 400 IV Infused (ml) 500 Ns 500 ml @ 1500 mls/hr 500 IV ONCE ONE Rx#: [id number] Output: Urine (ml) 1550 2100 Catheter 1550 2100 Other: Intake Quantity Yes Sufficient Number of Stools Bedside Commode 1 Toilet 1 1 Vital Signs Temp Pulse Resp BP Pulse Ox 36.4 C 65 16 108/72 93 03/01/18 04:55 03/01/18 04:55 03/01/18 04:55 03/01/18 04:55 03/01/18 04:55 Laboratory Results 03/01/18 05:24 03/01/18 05:24 ICD10 Worksheet Patient Problems: Problems Problem Status Onset Altered mental state Acute Brain lesion Acute Elevated d-dimer Acute Glucosuria Acute Hypoxemia Acute Rhabdomyolysis Acute Traumatic compression fracture of T5 thoracic vertebra Acute Vomiting Acute
[2018-03-01] MEDS: levETIRAcetam 500 MG TAB PO SCH ×2 (11:02→20:11)
[2018-03-01] MEDS: FAMOTIDINE 20 MG TAB PO SCH ×2 (11:02→20:10)
[2018-03-01] MEDS: TAMSULOSIN HCL 0.4 MG CAP PO SCH (11:02)
[2018-03-01] MEDS: DEXAMETHASONE 4 MG TAB PO SCH ×2 (11:02→20:10)
[2018-03-01] MEDS: ENOXAPARIN 40 MG/0.4 ML SYR SC SCH (11:03)
[2018-03-01] MEDS: SENNOSIDES/DOCUSATE SODIUM TAB PO SCH ×2 (11:03→20:10)
[2018-03-01] MEDS: LIDOCAINE 4%/MENTHOL 1% PATCH TD SCH (12:23)
--- NOTE | 2018-03-01 16:48 | HOSPPROG ---
Hospitalist Progress Note Assessment/Plan: Seizure: likely secondary to brain mass. status post craniotomy. on keppra with no further seizures. cont Brain mass- post op from craniotomy. per neurosurgery decadron taper but from their standpoint safe to discharge to rehab. Pathology pending. continue keppra 1gram bid Post operative anemia- H/H stable at this point. monitor Left Acetabular fracture: non-surgical. 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 continue regimen. DVT ppx: SCDs Fluids- None Lytes- WNL Nutrition- regular Cor-Full Disp: per CM patient needs pathology to confirm diagnosis before snf will accept. hopefully path finalized in next 1-2 days. otherwise will discuss with oncology in am to determine next steps and anticipate SNf discharge. Subjective: patient doing somewhat better today. Friends in to see patient, no new pain, or acute complaints. Objective: Vital Signs Temp Pulse Resp BP Pulse Ox 36.5 C 73 35 H 118/67 94 03/01/18 16:00 03/01/18 16:00 03/01/18 16:00 03/01/18 16:00 03/01/18 16:00 Laboratory Results 03/01/18 05:24 03/01/18 05:24 02/28/18 03/01/18 03/02/18 05:59 05:59 05:59 Intake Total 700 400 Output Total 1550 2100 1550 Balance -850 -1700 -1550 PT 14.6 SEC (12.0-15.0) 02/17/18 16:10 INR 1.12 (0.83-1.16) 02/17/18 16:10 - Physical Exam Constitutional: no apparent distress, appears nourished, not in pain Eyes: PERRL, anicteric sclera, EOMI Ears, Nose, Mouth, Throat: moist mucous membranes, hearing normal, ears appear normal, no oral mucosal ulcers Cardiovascular: regular rate and rhythym, no murmur, rub, or gallop Respiratory: no respiratory distress, no rales or rhonchi, clear to auscultation Gastrointestinal: normoactive bowel sounds, soft, non-tender abdomen, no palpable masses Genitourinary: no bladder fullness, no bladder tenderness, no renal bruits Skin: no rashes or abrasions, no fluctuance, no induration Musculoskeletal: generalized weakness Neurologic: AAOx3, sensation intact bilaterally Psychiatric: interacting appropriately, not anxious, not encephalopathic, thought process linear Lymph, Heme, Immunologic: no cervical LAD, no supraclavicular LAD ICD10 Worksheet Patient Problems: Problems Problem Status Onset Altered mental state Acute Brain lesion Acute Elevated d-dimer Acute Glucosuria Acute Hypoxemia Acute Rhabdomyolysis Acute Traumatic compression fracture of T5 thoracic vertebra Acute Vomiting Acute
[2018-03-01] MEDS: CYCLOBENZAPRINE 10 MG TAB PO PRN (20:10)
[2018-03-01] MEDS: TEMAZEPAM 15 MG CAP PO PRN (20:11)
[2018-03-01] MEDS: PATCH REMOVAL 1 EA PATCH TD SCH (22:19)
--- NOTE | 2018-03-02 07:34 | NEUSURGPN ---
Date of Surgery: 02/22/18 Post Op Day: 8 Assessment/Plan: Assessment: 68 yo male with apparent seizure and findings of 3 cm R frontal mass after fall resulting in bilateral hip fx, one was operative. Query primary vs. metastasis also with subacute T5 compression fracture Plan: -POD #8 s/p right sided craniotomy for resection of tumor. Post op MRI with good resection -path pending still this am -from Neuro standpoint he may go to rehab -1 week Decadron taper written -highly suspect glioma based on imaging. Will await for final pathology to anticipate prognosis -DVT prophx: TEDs, SCDs, lovenox -for the subacute T5 compression fx, patient currently does not have pain in this location. Will continue to monitor as weight bearing with ortho is increased. 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 -continue Keppra 1gm BID -call with any questions or concerns -DC Planning for Rehab Subjective: Awake and alert. No new complaints or concerns. No dunlap/neck/chest/abd or gu complaints. Objective: NAD A&Ox3/PERRLA/EOMI MOSS x4 5/5 BUE & BLE and equal Sensation intact Incision: CDI Neuro Check Frequency: per routine Urinary Catheter in Place: No Catheter Insertion Date: 02/21/18 - Physician Discussed Patient with DrLynda: Kun Neurosurgery Physical Exam - Vitals, I&O, Labs I and O 03/01/1818 03/03/18 05:59 05:59 05:59 Intake Total 400 2250 Output Total 2100 3000 Balance -1700 -750 Intake: Oral (ml) 400 2250 Output: Urine (ml) 2100 3000 Catheter 2100 3000 Other: Intake Quantity Yes Yes Sufficient Number of Voids Catheter 1 Number of Stools Bedside Commode 1 Toilet 1 1 Vital Signs Temp Pulse Resp BP Pulse Ox 36.4 C 68 18 109/92 H 92 03/02/18 03:16 03/02/18 03:16 03/02/18 03:16 03/02/18 03:16 03/02/18 03:16 Laboratory Results 03/01/18 05:24 03/01/18 05:24 ICD10 Worksheet Patient Problems: Problems Problem Status Onset Altered mental state Acute Brain lesion Acute Elevated d-dimer Acute Glucosuria Acute Hypoxemia Acute Rhabdomyolysis Acute Traumatic compression fracture of T5 thoracic vertebra Acute Vomiting Acute
[2018-03-02] MEDS: LIDOCAINE 4%/MENTHOL 1% PATCH TD SCH (08:28)
[2018-03-02] MEDS: levETIRAcetam 500 MG TAB PO SCH ×2 (08:30→21:35)
[2018-03-02] MEDS: ENOXAPARIN 40 MG/0.4 ML SYR SC SCH (08:30)
[2018-03-02] MEDS: DEXAMETHASONE 4 MG TAB PO SCH ×2 (08:30→21:35)
[2018-03-02] MEDS: SENNOSIDES/DOCUSATE SODIUM TAB PO SCH ×2 (08:31→21:34)
[2018-03-02] MEDS: TAMSULOSIN HCL 0.4 MG CAP PO SCH (08:31)
[2018-03-02] MEDS: FAMOTIDINE 20 MG TAB PO SCH ×2 (08:31→21:35)
[2018-03-02] MEDS: ACETAMINOPHEN 325 MG TAB PO PRN ×2 (08:35→21:39)
--- NOTE | 2018-03-02 14:06 | WOCRNPDOC ---
WOCRN Advanced Assessment Note - Skin Integrity Problem, Advanced Assess Right Lower Sacrum Pressure Injury Dressing Type: Mepilex Border Exudate Amount: Scant Exudate Color: Reddish/Yellow Exudate Characteristic(s): Serosanguinous Integumentary Issue Intervention: Dressing Changed, Hydrogel Applied Lanette Wound Tissue: Blanching, Erythema, Swollen, Calloused, Painful/Tender Lanette Wound Swelling: Mild Wound Bed Color: [employer], Red Wound Bed Constitution: Red/[employer] - Non Granular Tissue Wound Edges: Epithelizing, Irregular Site Measurement - Head-to-Toe Length X Width X Depth (cm): 1.4x1.4x0.1 Pressure Injury Stage: Stage 2 Pressure Injury Present on Admit: No Skin Integrity Problem Comment: Wound bed cleaned with normal saline and patted dry with gauze. Wound is partial thickness , stage 2 hospital acquired pressure injury. Patient had been up in chair for 5 hours at time of assessment. Patient stated that the nurses had been taking care of the wound, but there is no wound care consult or any wound care documentation of the wound. Lanette wound is calloused but blanches, with erythema extending approximately 1cm circumferentially from wound. Wound care will follow.
--- NOTE | 2018-03-02 14:26 | HOSPPROG ---
Hospitalist Progress Note Assessment/Plan: Seizure: likely secondary to brain mass. status post craniotomy. on keppra with no further seizures. cont Brain mass- post op from craniotomy. per neurosurgery decadron taper but from their standpoint safe to discharge to rehab. Pathology pending. continue keppra 1gram bid.case discussed with oncology who is going to look into getting pathology results and will consult on patient. Post operative anemia- H/H stable at this point. monitor Left Acetabular fracture: non-surgical. 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 DVT ppx: SCDs Fluids- None Lytes- WNL Nutrition- regular Cor-Full Disp: may need to remain inpatient for chemoradiation as he will need snf and cannot get chemoradiation while there. Onc consult pending. . Objective: Vital Signs Temp Pulse Resp BP Pulse Ox 36.8 C 76 18 101/57 L 96 03/02/18 11:31 03/02/18 11:31 03/02/18 11:31 03/02/18 11:31 03/02/18 11:31 Laboratory Results 03/01/18 05:24 03/01/18 05:24 03/01/18 03/02/18 03/03/18 05:59 05:59 05:59 Intake Total 400 2250 Output Total 2100 3000 Balance -1700 -750 PT 14.6 SEC (12.0-15.0) 02/17/18 16:10 INR 1.12 (0.83-1.16) 02/17/18 16:10 - Physical Exam Constitutional: no apparent distress, appears nourished, not in pain Eyes: PERRL, anicteric sclera, EOMI Ears, Nose, Mouth, Throat: moist mucous membranes, hearing normal, ears appear normal, no oral mucosal ulcers Cardiovascular: regular rate and rhythym, no murmur, rub, or gallop Respiratory: no respiratory distress, no rales or rhonchi, clear to auscultation Gastrointestinal: normoactive bowel sounds, soft, non-tender abdomen, no palpable masses Genitourinary: no bladder fullness, no bladder tenderness, no renal bruits Skin: no rashes or abrasions, no fluctuance, no induration Musculoskeletal: generalized weakness Neurologic: AAOx3, sensation intact bilaterally Psychiatric: interacting appropriately, not anxious, not encephalopathic, thought process linear Lymph, Heme, Immunologic: no cervical LAD, no supraclavicular LAD ICD10 Worksheet Patient Problems: Problems Problem Status Onset Altered mental state Acute Brain lesion Acute Elevated d-dimer Acute Glucosuria Acute Hypoxemia Acute Rhabdomyolysis Acute Traumatic compression fracture of T5 thoracic vertebra Acute Vomiting Acute
--- NOTE | 2018-03-02 14:31 | ASMTCMCOM ---
CM Note CM Note Notes: I spoke w hospitalist about d/c challenges for patient. He ordered an Oncology consult; per Dr Snell, they will attempt to get pathology report and see patient in AM. I spoke with patient about needing to make d/c plan. He seemed to understand but was overwhelmed. Although he said he chose [facility], he also stated that he wanted to go home. When I asked if he could find 24/7 supervision, he said yes. I encouraged him to think realistically about leaving the hospital very soon since he did not have any acute needs. He still wants to know pathology results even though he endorsed understanding that that is not reason to remain inpatient. His brother Kevin will come today, and they will discuss. Inpatient Rehab still following, as well. Case Management will follow. Date Signed: 03/02/2018 02:30 PM Electronically Signed By:Sydni Robledo RN
--- NOTE | 2018-03-02 15:09 | SOAPPROG ---
SOAP Progress Note Assessment/Plan: Assessment: Postop day 9 status post right posterior approach total hip arthroplasty with open reduction internal fixation of the greater trochanter Plan: Weightbear as tolerated with assistance to the right lower extremity, foot flat weight-bearing to the left lower extremity with a walker, PT/OT May remove surgical dressing once not sitting in bed as often. Ok to get wet. Do not submerge or soak OT for R shoulder - negative humerus XRs. Consider MRI in distant future once no longer requiring walker assistance DVT prophylaxis: Lovenox 40 mg daily once cleared by Neurosurgery, Emiliano clancy and SCDs Incentive spirometry 10 times per hour Analgesics: P.o. Narcotics, wean off when tolerated, then transition to Celebrex and Tylenol Disposition: Pending 02/22/18 07:40 02/22/18 07:43 02/23/18 15:33 02/24/18 07:59 02/25/18 15:06 03/02/18 15:07 03/02/18 15:09 Subjective: No acute events. Pain improved. Did well with PT today Objective: Vital Signs Temp Pulse Resp BP Pulse Ox 36.8 C 76 18 101/57 L 96 03/02/18 11:31 03/02/18 11:31 03/02/18 11:31 03/02/18 11:31 03/02/18 11:31 Laboratory Results 03/01/18 05:24 03/01/18 05:24 03/01/18 03/02/18 03/03/18 05:59 05:59 05:59 Intake Total 400 2250 Output Total 2100 3000 Balance -1700 -750 PT 14.6 SEC (12.0-15.0) 02/17/18 16:10 INR 1.12 (0.83-1.16) 02/17/18 16:10 Awake alert and oriented x3 No acute distress Right hip: No ecchymosis, mild swelling Thigh and calf compartments soft compressible Sensation intact to light touch L4-S1 Motor intact to EHL FHL tibialis anterior gastrocsoleus Palpable DP PT pulses ICD10 Worksheet Patient Problems: Problems Problem Status Onset Altered mental state Acute Brain lesion Acute Elevated d-dimer Acute Glucosuria Acute Hypoxemia Acute Rhabdomyolysis Acute Traumatic compression fracture of T5 thoracic vertebra Acute Vomiting Acute
[2018-03-02] MEDS: TEMAZEPAM 15 MG CAP PO PRN (21:34)
[2018-03-02] MEDS: CYCLOBENZAPRINE 10 MG TAB PO PRN (21:35)
[2018-03-03] MEDS: PATCH REMOVAL 1 EA PATCH TD SCH (00:06)
--- NOTE | 2018-03-03 04:28 | GCON ---
INPATIENT ONCOLOGY CONSULTATION DATE OF CONSULTATION: 03/02/2018 REFERRING PHYSICIAN: Mj Rodgers MD REASON FOR CONSULTATION: High-grade glioma. HISTORY OF PRESENT ILLNESS: The patient is a 68-year-old man who presented on February 17 after a seizure. He said he felt fine up until the event, which he obviously does not recall. He fell, and, unfortunately, fractured both of his hips, as well as sustained a compression fracture to T5. A bra in MRI revealed a 3 cm mass in the right posterior frontal lobe. Along the medial margin was a ring- enhancing structure measuring 1.4 cm. No additional lesions were seen. A CT of the chest, abdomen, and pelvis revealed some nonspecific liver hypodensities, which were felt to be cysts. He underwent what appears to be gross total resection of the tumor. Final pathology is pending, though Dr. Lore lowry of our pathology department thought it was a high-grade glioma, somewhat difficult to classify, an d the case is now being reviewed at the [facility]. In the meantime, the patient had ope rative repair of his right hip. A biopsy was performed at the fracture site and no evidence of malig errol was seen. The patient says he feels well and has no significant past medical history. PAST MEDICAL HISTORY: None. MEDICATIONS: Flexeril, Decadron 4 mg p.o. q.12, Lovenox 40 mg subcutaneously daily, Keppra 1000 mg p .o. b.i.d., oxycodone, Flomax, Restoril as needed. ALLERGIES: No known drug allergies. FAMILY HISTORY: Noncontributory. SOCIAL HISTORY: He is a nonsmoker and nondrinker. Lives alone. 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 REVIEW OF SYSTEMS: Other than pertinent positives in the HPI, a 14-point review of systems is negati ve. PHYSICAL EXAMINATION: VITAL SIGNS: Temperature is 36.6, blood pressure 113/66, heart rate 63, oxyge n saturation 96% on room air. GENERAL: He is in no acute distress. HEENT: Sclerae anicteric. John pharynx is clear. NECK: Supple, without lymphadenopathy. LUNGS: Clear to auscultation bilaterally . CARDIAC: Regular rate and rhythm. No murmurs, gallops, or rubs. ABDOMEN: Normoactive bowel usman nds. Nontender. Nondistended. EXTREMITIES: Without edema. NEUROLOGICAL: He is alert and oriente d x3. Strength and sensation are normal. Cranial nerves 2-12 are intact. Rapid alternating movemen ts are normal. LABORATORY DATA: White count 12.9, hemoglobin 10.3, platelets of 266. Sodium 131, potassium 4.0, ch loride 102, bicarb 24, BUN 19, creatinine 0.6, albumin 2.4. The remainder of the liver function test s were normal. IMPRESSION: This is a 68-year-old man presenting with a mass in the right frontal lobe. [facility] pathology shows this to be a high-grade glioma, which has not yet been classified. We discussed that typically for these tumors, adjuvant radiation and chemotherapy with Temodar is rec ommended. The prognosis varies depending on the graded histologic subtype, though generally these le sions are not felt to be curable. He asked about alternative therapies and I explained that there ar e no other treatments that have been scientifically demonstrated to be better or equivalent to radiat ion and chemotherapy. He may be discharged to a nursing facility tomorrow as he is not quite strong enough after his hip fractures to go home. I explained that we would obviously wait for the final pa thology before making any definitive treatment decisions, and the treatment would likely start in the next 2-3 weeks. I gave him a copy of my card and I will follow up with him tomorrow if I have any a dditional information from the final pathology review. Thank you for this consultation. It was a pleasure to meet the patient and I appreciate the terri price to be involved in his care. /[id number]/MODL
--- NOTE | 2018-03-03 08:27 | NEUSURGPN ---
Date of Surgery: 02/22/18 Post Op Day: 9 Assessment/Plan: Assessment: 68 yo male with apparent seizure and findings of 3 cm R frontal mass after fall resulting in bilateral hip fx, one was operative. Also with subacute T5 compression fracture POD #9 s/p right sided craniotomy for resection of tumor. -Post op MRI with good resection -path pending still this am -1 week Decadron taper written -oncology has seen -DVT prophx: TEDs, SCDs, lovenox -for the subacute T5 compression fx, patient currently does not have pain in this location. Will continue to monitor as weight bearing with ortho is increased. If patient becomes symptomatic will require PET CARE TECHNICIAN brace. -continue Keppra 1gm BID -call with any questions or concerns -stable from neurosurgery standpoint for discharge to rehab Discussed with Dr. Tristan Subjective: No new complaints or issues overnight. Objective: Awake. Alert. PERRL. EOMi Facial expression symmetrical Following commands Incision c/d/i Catheter Insertion Date: 02/21/18 - Physician Discussed Patient with Dr.: Tristan Neurosurgery Physical Exam - Vitals, I&O, Labs I and O 03/02/18 03/03/18 03/04/18 05:59 05:59 05:59 Intake Total 2250 500 Output Total 3000 1050 700 Balance -750 -550 -700 Intake: Oral (ml) 2250 500 Output: Urine (ml) 3000 1050 700 Catheter 3000 1050 700 Other: Intake Quantity Yes Yes Sufficient Number of Voids Catheter 1 Number of Stools Toilet 1 1 Vital Signs Temp Pulse Resp BP Pulse Ox 36.6 C 65 17 106/67 95 03/03/18 08:00 03/03/18 08:00 03/03/18 08:00 03/03/18 08:00 03/03/18 08:00 Laboratory Results 03/01/18 05:24 03/01/18 05:24 ICD10 Worksheet Patient Problems: Problems Problem Status Onset Altered mental state Acute Brain lesion Acute Elevated d-dimer Acute Glucosuria Acute Hypoxemia Acute Rhabdomyolysis Acute Traumatic compression fracture of T5 thoracic vertebra Acute Vomiting Acute
[2018-03-03] MEDS: levETIRAcetam 500 MG TAB PO SCH (08:53)
[2018-03-03] MEDS: TAMSULOSIN HCL 0.4 MG CAP PO SCH (08:53)
[2018-03-03] MEDS: SENNOSIDES/DOCUSATE SODIUM TAB PO SCH (08:53)
[2018-03-03] MEDS: FAMOTIDINE 20 MG TAB PO SCH (08:53)
[2018-03-03] MEDS: ENOXAPARIN 40 MG/0.4 ML SYR SC SCH (08:54)
[2018-03-03] MEDS ORDERED: DEXAMETHASONE 2 MG TAB PO SCH (09:00)
[2018-03-03] MEDS: ACETAMINOPHEN 325 MG TAB PO PRN (09:56)
[2018-03-03] MEDS: CYCLOBENZAPRINE 10 MG TAB PO PRN (09:56)
--- NOTE | 2018-03-03 11:56 | PDIAF ---
- Diagnosis Code Status: Full Code - Medication Management Discharge Medications: electronically signed and located in the Home Medication List. PICC Care - Routine: Yes - Orders Services needed: Physical Therapy, Occupational Therapy Isolation Type: None Diet Recommendation: no restrictions on diet Diet Texture: Regular Texture Diet Additional Instructions: activity as tolerated and per orthopedic surgery recommendations.weight bearing as tolerated. avoid heavy lifting. Follow up with oncology, orthopedic surgery and neurosurgery in the next 1-2 weeks. it is okay to shower and get bandages wet but do not submerger or soak them. If you develop any fevers, or have any concerns return to the ER immediately. - Follow Up Care Current Providers and Referrals: Patient,NotPresent [Unknown] - As per Instructions
[2018-03-03 12:06] VITALS: BP 104/67
[2018-03-03] MEDS: LIDOCAINE 4%/MENTHOL 1% PATCH TD SCH (12:53)
--- NOTE | 2018-03-03 13:14 | SOAPPROG ---
SOAP Progress Note Assessment/Plan: Assessment: 1. High grade glioma - final path pending 2. Seizure 3. Bilateral hip fractures s/p ORIF on R I met with the patient and his brothe/ALISHAA Galen. Discussed that final path is not back yet but that dx is likely a high grade glioma. Post op therapy consists of RT+temodar. Prognosis varies depending on histologic subtype. Discussed potential side effects of treatment Plan: - will arrange for pt to be transported from rehab to my office next week to discuss path and begin treatment planning 40 min spent w/ pt and in coordination of care. 03/03/18 13:11 Subjective: pt feels about the same. Objective: exam unchanged Vital Signs Temp Pulse Resp BP Pulse Ox 36.6 C 72 19 104/67 94 03/03/18 12:00 03/03/18 12:00 03/03/18 12:00 03/03/18 12:00 03/03/18 12:00 Laboratory Results 03/01/18 05:24 03/01/18 05:24 03/02/18 03/03/18 03/04/18 05:59 05:59 05:59 Intake Total 2250 500 400 Output Total 3000 1050 1150 Balance -750 -550 -750 PT 14.6 SEC (12.0-15.0) 02/17/18 16:10 INR 1.12 (0.83-1.16) 02/17/18 16:10 ICD10 Worksheet Patient Problems: Problems Problem Status Onset Altered mental state Acute Brain lesion Acute Elevated d-dimer Acute Glucosuria Acute Hypoxemia Acute Rhabdomyolysis Acute Traumatic compression fracture of T5 thoracic vertebra Acute Vomiting Acute
--- NOTE | 2018-03-03 13:53 | ASMTCMCOM ---
CM Note CM Note Notes: Today pt consults with his brother Galen and decides to d/c to [facility] inpatient rehab. Oncology consulting and pt to have appointment next week. [facility] stretcher transport arranged for 1330, copy of PCS in chart. Orders to be obtained via [employer]. MARILIA Sotelo called report. Pt friend Prem updated (pt signed MENDEZ for Prem) updated as he is the site planner of the meal train so pt dinner can be delivered to the proper place. Date Signed: 03/03/2018 01:52 PM Electronically Signed By:SULEMA Bond
--- NOTE | 2018-03-03 13:55 | ASDISCHSUM ---
Discharge Information Plan Status:Inpatient Rehab Medically Cleared to Leave: Discharge Date:03/03/2018 01:29 PM CM D/C Disposition: ADT D/C Disposition:[facility] IP Projected Discharge Date:03/01/2018 11:00 AM Transportation at D/C:ALS/BLS Discharge Delay Reason: Follow-Up Date:03/01/2018 11:00 AM Discharge Slot: Final Diagnosis: Placement Information Referral Type:Rehabilitation Hospital Referral ID:[id number] Provider Name:[facility] Inpatient Re[facility] Address 1:[address] Phone Number: Address 2: Fax Number: [facility]:[place] Selection Factors: State:[place] Referral Type:*[facility]/SNF Referral ID:[id number] Provider Name: Address 1: Phone Number: Address 2: Fax Number: City: Selection Factors: State: Patient Contact Information Contact Name:OLAMIDE Relationship: Address: Work Phone: City:[place] Alternate Phone: State/[facility] Code:[place] [address] Email: Financial Information Financial Class:Medicare Primary Plan Desc:MEDICARE INPATIENT Primary Plan Number:[id number] Secondary Plan Desc: Secondary Plan Number: Assessment Information LACE LACE Length of stay for Answers: 14 days or more current admission Acuity / Level of Answers: Yes Care: Did the patient have an inpatient admission? # of Emergency department Answers: 1-2 visits in the last 6 months Score: 11 Date Signed: 03/03/2018 01:53 PM Electronically Signed By:SULEMA Bond TEENA CM Progress Note CM Note CM Note Notes: CM reviewed pt's chart for d/c planning. Pt is a 68 y/o male with no significant medical hx. Pt was found lying down on his bedroom. Upon exam pt was found to have had probable seizure, a brain mass, possibly metastatic disease and a pathologic hip fracture. Pt is retired. OT/PT have been ordered. CM will follow. D/C Plan: TBD Date Signed: 02/18/2018 12:34 PM Electronically Signed By:Dorita Fishman [facility] CM Progress Note CM Note CM Note Notes: Pt discussed in rounds. Femur surgery today, frontal craiotomy for mass resection/biopsy Tuesday. D/C needs TBD. Plan: TBD Date Signed: 02/21/2018 01:44 PM Electronically Signed By:JAI Blue [facility] CM Progress Note CM Note CM Note Notes: Spoke with Galen, patient's brother who had requested information from case management. Galen is concerned about rehab care for his brother. He was informed inpatient rehab was in the process of evaluating patient for their program. We discussed other options (SNF rehab and home health care) as well. Galen was appreciative of the information. Therapies are still in process of evaluation. D/C plan TBD when evals are complete. CM will follow. Date Signed: 02/24/2018 03:49 PM Electronically Signed By:Alma Silverio LCSW [facility] CM Progress Note CM Note CM Note Notes: PT/OT/REINSURANCE CLAIM ANALYST all recommending In-Pt Rehab. In-Pt Rehab in screening process. CM to follow. D/C Plan: Possibly In-Pt Rehab Date Signed: 02/25/2018 11:18 AM Electronically Signed By:Dorita Fishman [facility] CM Progress Note CM Note CM Note Notes: Pt pathology still pending. Pt still under consideration for [facility] inpatient rehab. [facility] wants to know about pt d/c options from their program as he likely will not be able to return home due to all his stairs. Pt describes a substantial local support network and this is evidenced by the numerous visitors and meals being delivered. Pt brother/MARIANNA Aaron reports he would be a d/c option from rehab if pt was willing to go to his home. [facility] also wants pt input on their program, admissions phone number left with pt today. Spoke with pt and friends about SNFs in case pt does not qualify or want to go to [facility]. SNF referrals sent in Allscripts. So far, the SNFs need to know medical treatment plan after pathology is in in order to assess if they can meet pt needs. Galen indicates if pt cannot get into [facility] the likely first choice SNF is [facility]. CM will continue to follow. Date Signed: 02/28/2018 04:53 PM Electronically Signed By:SULEMA Bond [facility] CM Progress Note CM Note CM Note Notes: I spoke w hospitalist about d/c challenges for patient. He ordered an Oncology consult; per Dr Snell, they will attempt to get pathology report and see patient in AM. I spoke with patient about needing to make d/c plan. He seemed to understand but was overwhelmed. Although he said he chose [facility], he also stated that he wanted to go home. When I asked if he could find 11/10 supervision, he said yes. I encouraged him to think realistically about leaving the hospital very soon since he did not have any acute needs. He still wants to know pathology results even though he endorsed understanding that that is not reason to remain inpatient. His brother Kevin will come today, and they will discuss. Inpatient Rehab still following, as well. Case Management will follow. Date Signed: 03/02/2018 02:30 PM Electronically Signed By:Sydni Robledo RN [facility] CM Progress Note CM Note CM Note Notes: Today pt consults with his brother Galen and decides to d/c to [facility] inpatient rehab. Oncology consulting and pt to have appointment next week. [employer] transport arranged for 1330, copy of PCS in chart. Orders to be obtained via [employer]. MARILIA Sotelo called report. Pt friend Prem updated (pt signed MENDEZ for Prem) updated as he is the associate financial planner of the meal train so pt dinner can be delivered to the proper place. Date Signed: 03/03/2018 01:52 PM Electronically Signed By:SULEMA Bond Intervention Information Intervention Type:*Incorrect Registration Date of Service:02/18/2018 08:50 AM Patient Type:Observation Staff Member:Taylor Trevino Hours: Discipline: Severity: Comment:
[2018-03-05] MEDS ORDERED: DEXAMETHASONE 2 MG TAB PO SCH (09:00)
--- NOTE | 2018-03-06 14:20 | GCON ---
DATE OF CONSULTATION: 02/20/2018 REASON FOR CONSULTATION: Patient is a 68-year-old male who was admitted because of a possible seizur e and hip fracture. This appears to be secondary to a brain tumor which has been discovered and diag nosed. I am seeing him trauma service evaluation. In the ER he was found to have an acetabular frac ture on the left and a hip fracture on the right, as well as a T5 compression fracture. The patient was found down at home and was thought to be postictal. PAST MEDICAL HISTORY: Negative for any major surgeries or hospitalizations. REVIEW OF SYSTEMS: Noncontributory on a full 10-point review. Specifically he does not smoke. SOCIAL HISTORY: Reveals he does not smoke. ALLERGIES: None. MEDICATIONS: None. PHYSICAL EXAMINATION: GENERAL: An alert, talkative, 68-year-old male in no acute distress at this oint. HEAD and NECK: Reveals no evidence of trauma. His pupils are equal and reactive. EOMs are i ntact TMs are clear. NECK: Supple and nontender with full range of motion. Normal occlusion. Ther e is a small tongue laceration. CHEST: Clear and symmetric with no palpable rib fractures or signs of trauma. CARDIAC: Reveals a regular rhythm without murmurs. ABDOMEN: Soft, nontender, without m asses, organomegaly, or bruits. EXTREMITIES: Reveal full range of motion and full distal pulses. N EUROLOGIC: Alert, cooperative, oriented. He has symmetrical and physiologic neuro findings. SKIN: Reveals no major lesions or rashes. IMPRESSION: Right hip fracture and a left pelvic acetabular fracture secondary to seizure and fall s econdary to a brain tumor. At the time of this consultation the patient has already had open reducti on, internal fixation of his hip. He is planning to have a biopsy of the brain tumor later this week . He is otherwise stable and doing well and no other need for the trauma service at this point. /[id number]/MODL
--- NOTE | 2018-03-07 07:40 | GOP ---
DATE OF OPERATION: 02/22/2018 SURGEON: Jame Tristan MD STIFF STRAW HAT WASHER: None. 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 PROCEDURE PERFORMED: Right frontal craniotomy for resection of brain tumor and use of stealth neuron avigation. FINDINGS: Gross appearance of a gross total resection. 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 DESCRIPTION OF PROCEDURE: The patient was brought to the operating room and a sign-in was performed. He was given appropriate IV antibiotic prophylaxis. He was given IV Keppra, IV Decadron and IV man nitol for brain swelling purposes. He was smoothly induced under general anesthesia and intubated wi thout difficulty. Appropriate IV access was obtained. A Ferguson catheter was placed. SCDs were place d to prevent DVT. His head was placed in a three-point Guaman tilting head band sawyer to 80 pounds per square inch and his head was turned slightly to the left and hooked up to the Guaman arm. Sterile towel w as placed and his MRI was registered and found to be accurate. A pterional type incision was planned and the scalp was cleansed with chlorhexidine shampoo and rubbing alcohol which was allowed to dry. An incision was retraced and ChloraPrep was used to sterilize the skin. Prior to the procedure, a t humphrey-out was performed, in which all members of surgery, nursing and anesthesia went over the necessar y checklist items and agreed to proceed. Sterile field was created with blue towels, Ioban, and ster ile surgical drape. 0.25% Marcaine with 1:200,000 parts of epinephrine was injected along the planne d incision line. A #15 scalpel was used to incise the skin and dermis and then Bovie electrocautery was used to complete the myocutaneous flap, which was swept forward and retracted with fish hooks catarina garvin up to a . Navigation was used to plan our square-shaped craniotomy and a bur hole was made with a perforating drill bit and the cranial flap was removed with a craniotome router. Bone wa s placed on the back table in sterile solution. Bone dust was irrigated with copious antibiotic solu tion. Epidural hemostasis was obtained. The dura was opened in a cruciate fashion. The leaflets we re flapped back with 4-0 Nurolon suture. We referred to our navigation once more and found a new ent ry point in the patient's disease sulcus which was very enlarged and engorged, consistent with a glia l neoplasm. After we made a corticectomy, we began resecting tumor with aspiration and tumor forceps . The lesion appeared to have very good planes. We worked around it and removed large chunks of the tumor. Ultimately I continued working until the entire operative bed appeared to be cleaned of tumo r and all the visualized brain appeared to be very normal in appearance. We referred to our navigati on and confirmed that we had resected the majority of the mass including the enhancing necrotic porti on. All this tissue was sent to pathology for frozen and permanent section and the primary pathology returned as likely glial neoplasm. We performed hemostasis and irrigated out the operative bed with antibiotics once more. We laid Surgicel in the operative bed for hemostasis. We proceeded with luis fernando sure. We flapped the dural leaflets back and closed the dura with 4-0 Nurolon suture. We irrigated the epidural space and performed hemostasis and placed Surgifoam and thrombin-soaked Gelfoam in the e pidural space and tamponade it nicely. We plated the bone and put it back in place with 4 mm titaniu m screws. We irrigated out the operative bed once more and placed a #7 flat GEORGE into the subgaleal op erative space. We closed the temporalis muscle and the galea with 2-0 Vicryl suture. We used staple s to close the skin. We secured the drainage tube with a stitch and hooked up to full bulb compressi on. We removed the drapes and cleaned the wound with a wet and dry sponge and then placed a dressing consisting of bacitracin, Xeroform gauze and Telfa stapled to the skin. The patient's head was take n out of Guaman tilting head band sawyer and he was turned to Anesthesia where he was extubated without difficul ty. All counts were correct. I was there for the entirety of the procedure. There were no immediat e surgical anesthetic complications. The patient was taken to recovery area where he was found to be in stable medical neurologic condition. Orders were given for postoperative ICU care. We updated h is family personally regarding details of procedure and they were grateful for the care he received. DRAINS: None. COMPLICATIONS: None. IMPLANTS: Titanium cranial plates and 4 mm screws. INDICATIONS FOR THE PROCEDURE: The patient is a 68-year-old male who presented to [facility] after a seizure. 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 I did recommend surgery for resec tion and biopsy. The patient was consented with his family members and power of senior trial attorney present and he signed informed consent prior to the procedure. /[id number]/MODL
--- NOTE | 2018-03-27 18:27 | PDDCSUM ---
Discharge Summary Discharge Summary: Conner Schwartz is a 68 year old male admitted after suffering a seizure and fall. MRI revealed a 3cm frontal brain mass. He also had a hip fracture. he was taken to the OR for resection and biopsy of the mass. He also was started on steroids. He again went to the OR for surgical repair of his hip. His brain biopsy returned high grade glioblastoma and he was seen by oncology. patient decided to think about his treatment options. He was discharged to SNF for rehab and to follow up with ortho and his PCP Discharge diagnosis- glioblastoma Hip fracture osteoporosis
== END 2018-03-03 13:29 | DRG 25 ==
LOC: EDBD → EDUNIT# → EEVIPCON 19:34 → OBSVTOIN 21:39 → F2N 22:13 → F3N 02-21 11:51 → F2N 02-22 13:44 → F3N 02-24 17:43
PROVIDERS: ADMIT Internal Medicine; ATTEND Internal Medicine
DX: C71.1 Malignant neoplasm of frontal lobe (principal); S72.001A Fracture of unspecified part of neck of right femur, initial encounter for closed fracture; S72.111A Displaced fracture of greater trochanter of right femur, initial encounter for closed fracture; S32.402A Unspecified fracture of left acetabulum, initial encounter for closed fracture; W19.XXXA Unspecified fall, initial encounter; Y92.018 Other place in single-family (private) house as the place of occurrence of the external cause; G93.6 Cerebral edema; M62.82 Rhabdomyolysis; L89.152 Pressure ulcer of sacral region, stage 2; M81.0 Age-related osteoporosis without current pathological fracture
CPT/HCPCS: 80305; 82435-PO; 82565-PO; 82947-PO; 84132-PO; 84295-PO; 84484-PO; 84520-PO; 85014-PO; 92507-GN; 92523-GN; 96374; 97110-GP; 97116-GP; 97163-GP; 97166-GO; 97530-GO; 97530-GP; 97535-GO; A9585; C1713; G0103; G8978-GP-CM; G8979-GP-CK; G8987-GO-CL; G8988-GO-CJ; G9165-GN-CJ; G9166-GN-CI; J0171; J0360; J0690; J1100; J1170; J1580; J1650; J1885; J1953; J2001; J2250; J2270; J2370; J2405; J2704; J2795; J3010; Q9967

== ENCOUNTER 2018-03-03 14:00 | Inpatient (IN) | payer OTHER ==
[2018-03-03] MEDS ORDERED: BENEFIBER/NUTRISOURCE FIBER PKT 1 EACH PO PRN (16:08)
[2018-03-03] MEDS ORDERED: BISACODYL 10 MG SUPP PR PRN (16:08)
[2018-03-03] MEDS ORDERED: MAG HYDROX/AL HYDROX/SIMETH 30 ML UDCUP PO PRN (16:08)
[2018-03-03] MEDS ORDERED: MAGNESIUM HYDROXIDE 30 ML UDCUP PO PRN (16:08)
--- NOTE | 2018-03-03 16:20 | PDOREHIP ---
Admission IRF-[facility] - Admission - 3 Day Assessment Period Admission Date/Day 1: 03/03/18 Day 2: 03/04/18 Day 3: 03/05/18 - Active Diagnoses Comorbidities and Co-existing Conditions at Admission: 22618. None of the Above - Skin Conditions # Stage 1 Pressure Ulcers-Admission: 0 # Stage 2 Pressure Ulcers-Admission: 2 (Right mid buttock) # Stage 3 Pressure Ulcers-Admission: 0 # Stage 4 Pressure Ulcers-Admission: 0 # Unstageable Pressure Ulcers (Non-remove Dress)-Admission: 0 # Unstageable Pressure Ulcers (Slough/Eschar)-Admission: 0 # Unstageable Pressure Ulcers (Deep Tissue Injury)-Admission: 0
[2018-03-03] MEDS: ENOXAPARIN 40 MG/0.4 ML SYR SC SCH (17:50)
--- NOTE | 2018-03-03 18:35 | GHP ---
DATE OF ADMISSION: 03/03/2018 TIME OF EVALUATION: 3:30 p.m. REFERRING FACILITY: [facility]. REFERRING PHYSICIAN: Jame Tristan MD IMPAIRMENT GROUP: 17.2, neoplasms. DATE OF ONSET: 02/17/2018. POST ADMISSION PHYSICIAN EVALUATION AND REHABILITATION TREATMENT PLAN: REHABILITATION DIAGNOSIS: Debility with bilateral lower extremity weakness and cognitive dysfunction status post brain tumor excision, status post right total hip arthroplasty, right greater trochanter open reduction, internal fixation, status post left iliac wing and posterior pubic ramus and acetabu lar fracture. ETIOLOGIC DIAGNOSIS: Brain tumor. DATE OF SURGERY: 02/22/2018. HISTORY OF PRESENT ILLNESS: A 68-year-old male who was found unresponsive by his brother at his home on 02/17/2018, with initial presentation to the [facility] Emergency Department with symptoms consistent with a seizure. He was found to have a frontal brain mass measuring 3 cm and un derwent a right craniotomy and tumor resection on February 22. The official pathology report is sti ll pending, but it is expected that chemotherapy and radiation therapy 2 to 3 weeks will follow. From the fall, patient sustained the following fractures: 1. Right femoral neck fracture requiring right total hip arthroplasty. 2. A greater trochanteric fracture requiring ORIF on the right. 3. On the left, he sustained a left iliac wing and posterior pubic ramus fracture along with acetabu lar fracture. He is currently weightbearing as tolerated on the right and touchdown weightbearing on the left. Hip surgeries occurred on February 21, according to the medical records. The patient also has L5 compr ession fracture, age indeterminate. The patient also reports that he has right shoulder pain in the proximal anterior deltoid region, but denies numbness or tingling in the right upper extremity. Repo rts he can move right shoulder in all motion arcs without much pain. He also reports that he was ini tially on pain medications following the craniotomy and hip surgeries, but has since been weaned off those. No other medical complications during initial hospitalization. He is noted to have a grade 2 pressure ulcer in the right buttock. LABORATORY STUDIES: WBC 12.92 on 03/01, hemoglobin and hematocrit 10.3/29.8 on 03/01. Platelet coun t 266 on 03/01. Serum sodium 131 on 03/01, potassium 4.4, 03/01, BUN/creatinine 19/0.6 on 03/01, glu cose 96 03/01, TIBC 260 01/22, calcium 7.6 03/01, total bilirubin 0.9 03/01, AST 54 03/01, ALT 64 02/18 2. PRECAUTIONS: He is a fall risk. He is touchdown weightbearing on the left, weightbearing as tolerat ed on the right with posterior hip precautions. ACTIVE COMORBIDITIES: None. PAST MEDICAL HISTORY: The patient reports he has a noncontributory past medical history with the exc eption of 1 fall several years ago. PAST SURGICAL HISTORY: As noted in HPI. ADMISSION MEDICATIONS: 1. Decadron 2 mg p.o. twice daily 03/03 and 03/04, then take 2 mg daily on March 05 and 03/06, an d then discontinue. 2. Keppra 500 mg, 1000 mg p.o. twice daily. 3. Flomax 0.4 mg p.o. daily. ALLERGIES: No known drug allergies. SOCIAL HISTORY: The patient is not and has no children. He lives alone in a townhouse with 3 steps up and 15 steps to the 2nd floor where the bedroom is. He lives in [place]. Brother lives in [place]. A nonsmoker. Does not drink alcohol. Does not use recreational drugs. No previous hist ory of drug use. FAMILY HISTORY: Grandfather with leukemia. REVIEW OF SYSTEMS: HEENT: Denies dizziness or feeling lightheaded. PULMONARY: Denies shortness of breath. CARDIAC: Denies chest pain or angina-like symptoms. : Reports urinary incontinence; Fo kalpesh in place. Per nursing staff, had urinary retention at [facility]. De nies dysuria. Denies suprapubic pain. GI: Denies abdominal pain or reflux. NEUROLOGICAL: Denies headache. Denies diplopia. Denies upper or lower extremity numbness and tingling or new onset weakn ess with the exception of generalized weakness secondary to relative bed rest during surgeries. Othe rwise, the 10-point review of systems is negative. PHYSICAL EXAM: VITAL SIGNS: Blood pressure 103/62, heart rate 69, respiratory rate 12, O2 saturatio ns 95. CONSTITUTIONAL: Pleasant, but slightly disheveled male, NAD. Calm demeanor. HEENT: Pupils equal, round, reactive to light and accommodation. Extraocular muscles intact. Sclerae white, sd njected. Mucous membranes slightly dry. LUNGS: Clear to auscultation. CARDIAC: Regular rate and rhythm, no murmurs, rubs, or gallops. ABDOMEN: Soft, nontender, normoactive bowel sounds all 4 quad rants. No suprapubic tenderness. SKIN: Warm all 4 extremities. Ecchymoses noted just proximal to the right elbow and the proximal lateral arm. He has a grade 2 decubitus at the midpoint of the righ t buttocks. Perianal area is erythematous without skin breakdown. He has a craniotomy incision on t he right, ana in place, nonerythematous. Right posterior hip incision bandaged; bandage was not removed at this time. NEUROLOGICAL: Alert and oriented x3. Cooperates during questioning portion o f exam. Could recall brother's recent visit to hospital room. Knows appropriate current events. Co uld name son's children. Could commit easy recall both phrases without difficulty. Motor strength i s 5/5 proximal and distal muscle groups of both upper extremities. Had difficulty performing supine right and left leg lifts secondary to recent hip surgery. Did not assess quadriceps and hamstring st rength secondary to the patient's body position in bed. He had 4+/5 right and left ankle dorsiflexor s and plantar flexors. No upper or lower extremity sensory deficits. Shows normoactive range of mot ion right shoulder including forward flexion, abduction, internal-external rotation. No crepitus. U pper extremity strength 5/5 deltoid, biceps, triceps, brachioradialis, internal/external shoulder rot ators, wrist and finger extensors. 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 CURRENT LEVEL OF FUNCTION PER THE PREADMISSION SCREEN: 1. Diet/feeding/swallowing: Regular diet. Setup feeding. Grooming min assist with verbal cuing. 2. Bathing: Sponge bath with max assist and verbal cuing. 3. Toileting: Total assistance. 4. Bed mobility: Mod assist x2. 5. Transfers: Two person min assist with verbal cues for hand placement, left foot placement, 2 per son mod/max assist for toilet treatments. 6. Equipment: FWW balance, SBA for sitting balance, 2 person min assist for standing balance with v erbal cuing. 7. Endurance: Fatigue secondary to pain. Gait 2 person min assist with FWW 9 feet with verbal cues for adherence to left touchdown weightbearing precautions. 8. Stairs: To be determined. 9. Cognition: Decreased attention, decreased adherence to weightbearing precautions. 10. Safety precautions: Fall risk, right lower extremity weightbearing as tolerated, left lower ext remity touchdown weightbearing precautions. Posterior hip precautions on the right unless orthopedic surgeon does not wish to continue posterior hip precautions. EXPECTED LEVEL OF IMPROVEMENT FOR SAFE DISCHARGE: Anticipate patient will advance to [facility] with self-care and mobility with least restrictive device on level surfaces with adherence to left lower extremity weightbearing precautions, which is currently touchdown weightbearing. The patient will demonstrate awareness and safety to cognitive limitations with use of compensatory strategies. Patient and caregiver will be trained and educated by team with safety and level of assist for patien t at home. LEONELA roberts IMPRESSION/PLAN: 1. Status post craniotomy and excision of brain tumor: Wound care for craniotomy incision. The pat ient will have followup with Dr. Tristan, [facility], in 2 weeks. Tentatively plan for dixie ent to have chemotherapy and radiation treatments pending pathology report of excised tumor. 2. Status post right total hip arthroplasty for femoral neck fracture: Status post ORIF, greater tr ochanter. Currently weightbearing as tolerated, right lower extremity. This was a posterior hip rep lacement and therefore patient will have posterior hip precautions. No abduction, no external rotati on, and no extension until cleared by orthopedic surgeon. The patient has left hip fractures includi ng iliac wing fracture, posterior pubic ramus fracture, and left acetabular fracture and is currently touchdown weightbearing. He will have followup with Dr. Alfredo Hawkins. Follow-up appointment date wi ll be ascertained by nurse Stone Setter, Zuri Patton. 3. Cognitive dysfunction: Speech and Language Pathology consulted. Input appreciated. 4. Gait dysfunction: He is weightbearing as tolerated right lower extremity with posterior hip prec autions and touchdown weightbearing left lower extremity. PT and OT consulted. Patient will need Oc cupational Therapy for ADL training and Physical Therapy for lower extremity strengthening and gait t raining. PT and OT may work in concert for trunk/core strengthening and balance. 5. Leukocytosis: We will continue to monitor white blood count. This is most likely due to patient being on dexamethasone. 6. Seizure disorder: The patient will remain on Keppra with further determination of duration based on his followup appointment with Dr. Tristan. 7. Pain control: Patient currently is not requesting pain medications. He can take acetaminophen 6 50 mg 1 p.o. q.4 hours p.r.n. pain. If he needs additional pain medications, then will consider tram adol 50 mg 1 p.o. q.6 hours or oxycodone 5 mg q.4 hours. 8. Wound care: Craniotomy incision and right hip incision will be inspected every shift by nursing. Okay to shower and get bandages wet, but do not submerge or soak them. 9. Deep venous thrombosis prophylaxis: Continue SCDs. Patient was not transferred on enoxaparin. We will discuss this with the Hospitalist, . 10. Followup: The patient will have followup with Dr. Alfredo Hawkins, who is his Orthopedic Surgeon, h is Neurosurgeon, Dr. Tristan, and his Oncologist, Dr. Snell. Appointment dates will be ascertained by Stone Setter, Zuri Patton. /[id number]/MODL
[2018-03-03] MEDS: TEMAZEPAM 15 MG CAP PO PRN (20:27)
[2018-03-03] MEDS: SENNOSIDES 17.6 MG/10 ML UDL PO PRN (20:27)
[2018-03-03] MEDS: DEXAMETHASONE 2 MG TAB PO SCH (20:27)
[2018-03-03] MEDS: levETIRAcetam 500 MG TAB PO SCH (20:27)
[2018-03-03] MEDS: ACETAMINOPHEN 325 MG TAB PO PRN (20:32)
[2018-03-04] MEDS: ACETAMINOPHEN 325 MG TAB PO PRN ×3 (00:36→20:04)
[2018-03-04 07:30] LABS: PLATELET COUNT 283 10^3/uL (150-400)
[2018-03-04] MEDS: TAMSULOSIN HCL 0.4 MG CAP PO SCH (09:27)
[2018-03-04] MEDS: DEXAMETHASONE 2 MG TAB PO SCH ×2 (09:28→19:53)
[2018-03-04] MEDS: levETIRAcetam 500 MG TAB PO SCH ×2 (09:28→19:53)
[2018-03-04] MEDS: ENOXAPARIN 40 MG/0.4 ML SYR SC SCH (09:28)
--- NOTE | 2018-03-04 12:22 | HOSPPROG ---
Hospitalist Progress Note Assessment/Plan: 68 yo healthy male with new seizure d/t brain tumor resulting in fall with multiple fractures * Brain tumor * s/p resection, awaiting final path results * expecting chemo in 2-3 weeks * cont dexamethasone and Keppra for sz prophylaxis * s/p right hip arthroplasty * posterior hip precautions * PT/OT * Left iliac wing/acetabular/posterior pubic rami fracture * touch down precautions * T5 compression fracture * no brace unless it becomes painful * Probable osteoporosis * orthopedic surgery noted poor bone quality * had been a vegan for many year - possibly nutrition related * check vitamin d and b12, rbc magnesium * leukocytosis * probably from steroids *hyponatremia * check urine studies * encourage more salt intake until studies done *seizure * keppra * cognitive dysfunction * speech therapy *anemia * DVT proph - lovenox Subjective: complaining of left shoulder pain since initial fall. Objective: Vital Signs Temp Pulse Resp BP Pulse Ox 36.6 C 67 15 99/56 L 94 03/04/18 06:55 03/04/18 06:55 03/04/18 06:55 03/04/18 06:55 03/04/18 06:55 Laboratory Results 03/04/18 06:10 03/04/18 06:10 03/03/18 03/04/18 03/05/18 05:59 05:59 05:59 Intake Total 300 525 Output Total 750 900 Balance -450 -375 - Physical Exam Constitutional: no apparent distress, appears nourished, not in pain Eyes: anicteric sclera, EOMI Ears, Nose, Mouth, Throat: moist mucous membranes Cardiovascular: regular rate and rhythym, no murmur, rub, or gallop Respiratory: no respiratory distress Gastrointestinal: normoactive bowel sounds, soft, non-tender abdomen, no palpable masses Musculoskeletal: other (left shoulder with posterior tenderness. good rom) Neurologic: AAOx3 Psychiatric: interacting appropriately, not anxious, not encephalopathic, thought process linear ICD10 Worksheet Patient Problems: Problems Problem Status Onset Altered mental state Acute Brain lesion Acute Elevated d-dimer Acute Glucosuria Acute Hypoxemia Acute Rhabdomyolysis Acute Traumatic compression fracture of T5 thoracic vertebra Acute Vomiting Acute
[2018-03-04] MEDS: TEMAZEPAM 15 MG CAP PO PRN (20:04)
[2018-03-04] MEDS: SENNOSIDES 17.6 MG/10 ML UDL PO PRN (20:05)
[2018-03-05] MEDS: TAMSULOSIN HCL 0.4 MG CAP PO SCH (09:33)
[2018-03-05] MEDS: DEXAMETHASONE 2 MG TAB PO SCH ×2 (09:33→20:16)
[2018-03-05] MEDS: levETIRAcetam 500 MG TAB PO SCH ×2 (09:36→20:16)
[2018-03-05] MEDS: ENOXAPARIN 40 MG/0.4 ML SYR SC SCH (09:36)
--- NOTE | 2018-03-05 12:03 | HOSPPROG ---
Hospitalist Progress Note Assessment/Plan: 68 yo healthy male with new seizure d/t brain tumor resulting in fall with multiple fractures * Brain tumor * s/p resection, awaiting final path results * expecting chemo in 2-3 weeks * cont dexamethasone and Keppra for sz prophylaxis * s/p right hip arthroplasty * posterior hip precautions * PT/OT * Left iliac wing/acetabular/posterior pubic rami fracture * touch down precautions * T5 compression fracture * no brace unless it becomes painful * Probable osteoporosis * orthopedic surgery noted poor bone quality * had been a vegan for many year - possibly nutrition related * vitamin D normal * check testosterone * leukocytosis * probably from steroids * urinary retention * didn't have problems before surgery * has been on Flomax * janene dc zhong and see if he can urinate *hyponatremia * urine na c/w SIADH * start fluid restriction *seizure * keppra * cognitive dysfunction * speech therapy *anemia * DVT proph - lovenox Subjective: left shoulder slowly getting better. never had probems with urination before Objective: Vital Signs Temp Pulse Resp BP Pulse Ox 36.6 C 68 16 97/58 L 97 03/05/18 06:45 03/05/18 06:45 03/05/18 06:45 03/05/18 06:45 03/05/18 06:45 Laboratory Results 03/04/18 06:10 03/05/18 06:00 03/04/18 03/05/18 03/06/18 05:59 05:59 05:59 Intake Total 300 525 675 Output Total 750 2050 450 Balance -450 -1525 225 - Physical Exam Constitutional: no apparent distress, appears nourished, not in pain Eyes: anicteric sclera, EOMI Ears, Nose, Mouth, Throat: moist mucous membranes Cardiovascular: regular rate and rhythym Respiratory: no respiratory distress Gastrointestinal: normoactive bowel sounds, soft, non-tender abdomen, no palpable masses Skin: warm Neurologic: AAOx3 Psychiatric: interacting appropriately, not anxious, not encephalopathic, thought process linear ICD10 Worksheet Patient Problems: Problems Problem Status Onset Altered mental state Acute Brain lesion Acute Elevated d-dimer Acute Glucosuria Acute Hypoxemia Acute Rhabdomyolysis Acute Traumatic compression fracture of T5 thoracic vertebra Acute Vomiting Acute
[2018-03-05] MEDS: TEMAZEPAM 15 MG CAP PO PRN (20:16)
[2018-03-05] MEDS: ACETAMINOPHEN 325 MG TAB PO PRN (20:16)
[2018-03-06] MEDS: ACETAMINOPHEN 325 MG TAB PO PRN ×3 (02:03→21:56)
[2018-03-06] MEDS ORDERED: CYCLOBENZAPRINE 10 MG TAB PO ONE (06:30)
[2018-03-06] MEDS: DEXAMETHASONE 2 MG TAB PO SCH (08:58)
[2018-03-06] MEDS: ENOXAPARIN 40 MG/0.4 ML SYR SC SCH (08:58)
[2018-03-06] MEDS: levETIRAcetam 500 MG TAB PO SCH ×2 (08:58→21:03)
[2018-03-06] MEDS: TAMSULOSIN HCL 0.4 MG CAP PO SCH (08:59)
--- NOTE | 2018-03-06 11:38 | SOAPPROG ---
SOAP Progress Note Assessment/Plan: Assessment: 68 yo healthy male with new seizure d/t brain tumor resulting in fall with multiple fractures * Debility with TTWB on left leg due to iliac wing/acetabular/posterior pubic rami fracture fractures, and right hip fracture status post arthroplasty. * Initial functional independence measure is 67 on 03/06/2018. Needs minimal to moderate assistance for bed mobility to assist with trunk and leg control. Transfers with minimal assist using a front wheeled walker. Ambulated 35 ft with a front wheeled walker, contact guard assist and cues for hand placement. Requires maximal assistance for lower body dressing and supervision/setup for upper body dressing. Minimal assist for bathing and for toilet transfer. Does grooming and hygiene seated. * Continue PT and OT. * cognitive impairment * Scored 19/30 on the [facility] mental status exam. Has decreased memory, insight, problem solving and attention. * Continue IMPLEMENTATION ARCHITECT. * Brain tumor * s/p resection, awaiting final path results * expecting chemo in 2-3 weeks * cont dexamethasone and Keppra for sz prophylaxis * Dexamethasone taper discussed with clarke [facility], 2017. Advises tapering from 2 mg twice daily to 2 mg q.day on 03/06/2018, continuing for 3 days, and then discontinuing. * urinary retention * didn't have problems before surgery * has been on Flomax * Has retention s/p d/c of catheter 03/05/2018. Required catheterization 2017 with 700 cc returned. Possible etiologies include cyclobenzaprine, R frontal craniotomy and tumor excision, and sacral hematoma from pelvic fractures. Will increase tamsulosin to 0.8 mg QD starting 03/06/2018. DC cyclobenzaprine. Insert Ferguson and leave in place if he continues to retain greater than 400 cc. * T5 compression fracture * no brace unless it becomes painful * Pain management appears to be adequate with acetaminophen. * Continue cyclobenzaprine at HS per his request. * Insomnia * Using temazepam at bedtime. Reports poor sleep overnight 03/05 - 03/06/2018. Continue monitor. * Probable osteoporosis * orthopedic surgery noted poor bone quality * had been a vegan for many year - possibly nutrition related * vitamin D normal * check testosterone * leukocytosis * probably from steroids *hyponatremia * urine na c/w SIADH * start fluid restriction * Sodium improved from 131 to 132 on 03/06/2018. Continue to monitor. *seizure * keppra *anemia * DVT proph - has increased DVT risk due to solid tumor and reduced mobility. As of 03/06/2018, ambulated 35 ft. Continue enoxaparin until mobility improves. DISPOSITION: Attended staffing, 15 min. Discussed with case management, dietitian, nursing, PT, OT, IMPLEMENTATION ARCHITECT. Lives alone. Has assistance from his brother as well as friends. Goal is to be able to function at the modified independent level. Tentative discharge date set for 03/17/2018. FOLLOW-UP: Oncologist Dr. Snell, neurosurgery Dr. Tristan, PC P Dr. aBeza. Dr. Baeza wishes to be kept informed of progress. Her phone number is . Plan: 03/06/18 11:30 03/06/18 11:39 03/06/18 12:43 Subjective: Reports poor sleep last night. He says he did not get the Flexeril that he often takes at night to help relax his body. He has some right arm pain which she thinks is due to lying on it for awhile when he was found. He is aware of difficulty emptying his bladder. He denies constipation and is otherwise without complaints. Objective: Vital Signs Temp Pulse Resp BP Pulse Ox 36.7 C 61 16 98/55 L 95 03/06/18 06:21 03/06/18 06:21 03/06/18 06:21 03/06/18 06:21 03/06/18 06:21 Laboratory Results 03/04/18 06:10 03/06/18 06:00 03/05/18 03/06/18 03/07/18 05:59 05:59 05:59 Intake Total 525 925 200 Output Total 0694 5021 908 Balance -1525 -200 -150 - Time Spent With Patient Time Spent With Patient: Greater than 35 min floor time today, including more than 50% of time in coordination of care during staffing and in conversation with the nurse surgery service regarding dexamethasone taper, and counseling patient. Physical Exam - Physical Exam General Appearance: WD/WN, alert, no apparent distress Respiratory: normal breath sounds, No crackles, No rhonchi, No wheezing Cardiac/Chest: regular rate, rhythm, No edema, No diastolic murmur, No systolic murmur Skin: normal color, warm/dry Neuro/Psych: alert, normal mood/affect, oriented x 3 ICD10 Worksheet Patient Problems: Problems Problem Status Onset Altered mental state Acute Brain lesion Acute Elevated d-dimer Acute Glucosuria Acute Hypoxemia Acute Rhabdomyolysis Acute Traumatic compression fracture of T5 thoracic vertebra Acute Vomiting Acute
[2018-03-06] MEDS ORDERED: CYCLOBENZAPRINE 10 MG TAB PO PRN (11:41)
[2018-03-06] MEDS ORDERED: TAMSULOSIN HCL 0.4 MG CAP PO ONE (14:09)
[2018-03-06] MEDS: traZODone 50 MG TAB PO PRN (21:56)
[2018-03-07] MEDS: ACETAMINOPHEN 325 MG TAB PO PRN ×4 (01:51→22:06)
[2018-03-07] MEDS: ENOXAPARIN 40 MG/0.4 ML SYR SC SCH (09:31)
[2018-03-07] MEDS: TAMSULOSIN HCL 0.4 MG CAP PO SCH (09:32)
[2018-03-07] MEDS: levETIRAcetam 500 MG TAB PO SCH ×2 (09:32→21:50)
[2018-03-07] MEDS: DEXAMETHASONE 2 MG TAB PO SCH (09:32)
--- NOTE | 2018-03-07 12:48 | SOAPPROG ---
SOAP Progress Note Assessment/Plan: Assessment: 68 yo healthy male with new seizure d/t brain tumor resulting in fall with multiple fractures * Debility with TTWB on left leg due to iliac wing/acetabular/posterior pubic rami fractures, and right hip fracture status post arthroplasty. * Initial functional independence measure is 67 on 03/06/2018. Needs minimal to moderate assistance for bed mobility to assist with trunk and leg control. Transfers with minimal assist using a front wheeled walker. Ambulated 35 ft with a front wheeled walker, contact guard assist and cues for hand placement. Requires maximal assistance for lower body dressing and supervision/setup for upper body dressing. Minimal assist for bathing and for toilet transfer. Does grooming and hygiene seated. * Continue PT and OT. * cognitive impairment * Scored 19/30 on the [facility] mental status exam. Has decreased memory, insight, problem solving and attention. 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 * Brain tumor * s/p resection, awaiting final path results; not yet available as of 2017. * expecting chemo in 2-3 weeks * cont dexamethasone and Keppra for sz prophylaxis * Dexamethasone taper discussed with clarke Kim With Neurosurgery, 2017. Advises tapering from 2 mg twice daily to 2 mg q.day on 03/06/2018, continuing for 3 days, and then discontinuing. * urinary retention * didn't have problems before surgery * has been on Flomax * Has retention s/p d/c of catheter 03/05/2018. Required catheterization 2017 with 700 cc returned. Possible etiologies include cyclobenzaprine, R frontal craniotomy and tumor excision, and sacral hematoma from pelvic fractures. Increased tamsulosin to 0.8 mg QD starting 03/06/2018. DC cyclobenzaprine. * Discussed with patient 03/07/2018. He prefers to continue intermittent catheterization in the hopes that his voiding can improve. Scheduled bladder scan and intermittent catheterization q.8 hours. * T5 compression fracture * no brace unless it becomes painful * Pain management appears to be adequate with acetaminophen. * Continue cyclobenzaprine at HS per his request. * Insomnia * Using temazepam at bedtime. Reports poor sleep overnight 03/05 - 03/06/2018. Continue monitor. * Started trazodone on 03/06/2018, and he did not use temazepam. * Expect improvement with completion of dexamethasone. * Probable osteoporosis * orthopedic surgery noted poor bone quality * had been a vegan for many year - possibly nutrition related * vitamin D normal * check testosterone * leukocytosis * probably from steroids *hyponatremia * urine na c/w SIADH * start fluid restriction * Sodium improved from 131 to 132 on 03/06/2018. Continue to monitor. *seizure * keppra *anemia * DVT proph - has increased DVT risk due to solid tumor and reduced mobility. As of 03/06/2018, ambulated 35 ft. Continue enoxaparin until mobility improves. DISPOSITION: Lives alone. Has assistance from his brother as well as friends. Goal is to be able to function at the modified independent level. Tentative discharge date set for 03/17/2018. FOLLOW-UP: Oncologist Dr. Snell, neurosurgery Dr. Tristan, PC P Dr. Baeza. Dr. Baeza wishes to be kept informed of progress. Her phone number is [phone]. 03/07/18 12:23 Subjective: Discussed bladder issues. He reports he has sensation of urge to void and he denies any perineal numbness. Objective: Vital Signs Temp Pulse Resp BP Pulse Ox 36.5 C 69 16 99/59 L 96 03/07/18 06:22 03/07/18 06:22 03/07/18 06:22 03/07/18 06:22 03/07/18 06:22 Laboratory Results 03/04/18 06:10 03/06/18 06:00 03/06/18 03/07/18 03/08/18 05:59 05:59 05:59 Intake Total 925 900 500 Output Total 1125 2185 975 Balance -200 -1175 -589 Physical Exam - Physical Exam General Appearance: WD/WN, alert, no apparent distress Respiratory: No respiratory distress, No accessory muscle use Skin: normal color, warm/dry, other (Right scalp incision healing well, no dehiscence, no drainage, no erythema or purulence.) Neuro/Psych: alert, normal mood/affect, oriented x 3 ICD10 Worksheet Patient Problems: Problems Problem Status Onset Altered mental state Acute Brain lesion Acute Elevated d-dimer Acute Glucosuria Acute Hypoxemia Acute Rhabdomyolysis Acute Traumatic compression fracture of T5 thoracic vertebra Acute Vomiting Acute
[2018-03-07] MEDS: traZODone 50 MG TAB PO PRN (21:50)
[2018-03-08] MEDS: ACETAMINOPHEN 325 MG TAB PO PRN ×3 (05:29→22:05)
[2018-03-08] MEDS: ENOXAPARIN 40 MG/0.4 ML SYR SC SCH (10:24)
[2018-03-08] MEDS: levETIRAcetam 500 MG TAB PO SCH ×2 (10:24→22:02)
[2018-03-08] MEDS: DEXAMETHASONE 2 MG TAB PO SCH (10:24)
[2018-03-08] MEDS: TAMSULOSIN HCL 0.4 MG CAP PO SCH (10:24)
[2018-03-08] MEDS: traZODone 50 MG TAB PO PRN (22:05)
[2018-03-09] MEDS: TEMAZEPAM 15 MG CAP PO PRN ×2 (01:12→22:16)
[2018-03-09] MEDS: ENOXAPARIN 40 MG/0.4 ML SYR SC SCH (08:27)
[2018-03-09] MEDS: levETIRAcetam 500 MG TAB PO SCH ×2 (08:27→22:16)
[2018-03-09] MEDS: TAMSULOSIN HCL 0.4 MG CAP PO SCH (08:27)
[2018-03-09] MEDS: ACETAMINOPHEN 325 MG TAB PO PRN ×2 (08:32→22:16)
--- NOTE | 2018-03-09 10:46 | SOAPPROG ---
SOAP Progress Note Assessment/Plan: Assessment: 68 yo healthy male with new seizure d/t brain tumor resulting in fall with multiple fractures * Debility with TTWB on left leg due to iliac wing/acetabular/posterior pubic rami fractures, and right hip fracture status post arthroplasty. * Initial functional independence measure is 67 on 03/06/2018. Needs minimal to moderate assistance for bed mobility to assist with trunk and leg control. Transfers with minimal assist using a front wheeled walker. Ambulated 35 ft with a front wheeled walker, contact guard assist and cues for hand placement. Requires maximal assistance for lower body dressing and supervision/setup for upper body dressing. Minimal assist for bathing and for toilet transfer. Does grooming and hygiene seated. * Improving, with ambulation as far as 60 ft and advancing to contact guard assist for most ADLs. * Continue PT and OT. * cognitive impairment * Scored 19/30 on the [facility] mental status exam. Has decreased memory, insight, problem solving and attention. 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 * Brain tumor * s/p resection. * expecting chemo in 2-3 weeks. Pathology report available today, 03/09/2018. Does not appear to have favorable prognostic indicators, glioblastoma multiform , IDH wild type. Seen by Oncology today, 03/09/2018. * Completed dexamethasone today, 03/09/2018. Continue levetiracetam for seizure prophylaxis. * urinary retention * didn't have problems before surgery * has been on Flomax * Has retention s/p d/c of catheter 03/05/2018. Required catheterization 2017 with 700 cc returned. Possible etiologies include cyclobenzaprine, R frontal craniotomy and tumor excision, and sacral hematoma from pelvic fractures. Increased tamsulosin to 0.8 mg QD starting 03/06/2018. DC cyclobenzaprine. * Discussed with patient 03/07/2018. He prefers to continue intermittent catheterization in the hopes that his voiding can improve. Scheduled bladder scan and intermittent catheterization q.8 hours. * T5 compression fracture * no brace unless it becomes painful * Pain management appears to be adequate with acetaminophen. * Insomnia * Using temazepam at bedtime. Reports poor sleep overnight 03/05 - 03/06/2018. Continue monitor. * Started trazodone on 03/06/2018, and he did not use temazepam. * Expect improvement with completion of dexamethasone. * Probable osteoporosis * orthopedic surgery noted poor bone quality * had been a vegan for many year - possibly nutrition related * vitamin D normal * check testosterone * leukocytosis * probably from steroids *hyponatremia * urine na c/w SIADH * start fluid restriction * Sodium improved from 131 to 132 on 03/06/2018. Continue to monitor. *anemia * DVT proph - has increased DVT risk due to solid tumor and reduced mobility. As of 03/06/2018, ambulated 35 ft. Continue enoxaparin until mobility improves. DISPOSITION: Lives alone. Has assistance from his brother as well as friends. Goal is to be able to function at the modified independent level. Tentative discharge date set for 03/17/2018. FOLLOW-UP: Oncologist Dr. Snell, neurosurgery Dr. Tristan, PC P Dr. Baeza. Dr. Baeza wishes to be kept informed of progress. Her phone number is [phone]. Discussed pathology and prognosis with Dr. Baeza, 03/09/2018. 03/09/18 14:18 Subjective: No complaints. Slept well after receiving temazepam. Feels his urination is improving and is satisfied to continue intermittent straight catheterization. Hopeful about Oncology appointment today. Objective: Vital Signs Temp Pulse Resp BP Pulse Ox 37.0 C 83 18 93/58 L 96 03/09/18 07:28 03/09/18 07:28 03/09/18 07:28 03/09/18 07:28 03/09/18 07:28 Laboratory Results 03/04/18 06:10 03/06/18 06:00 03/08/18 03/09/18 03/10/18 05:59 05:59 05:59 Intake Total 1999 150 240 Output Total 7490 7934 700 Balance -027 -1650 -629 Physical Exam - Physical Exam General Appearance: WD/WN, alert, no apparent distress Respiratory: No respiratory distress, No accessory muscle use Skin: normal color, warm/dry, other (Scalp incision healing) Neuro/Psych: alert, normal mood/affect, oriented x 3 ICD10 Worksheet Patient Problems: Problems Problem Status Onset Altered mental state Acute Brain lesion Acute Elevated d-dimer Acute Glucosuria Acute Hypoxemia Acute Rhabdomyolysis Acute Traumatic compression fracture of T5 thoracic vertebra Acute Vomiting Acute
[2018-03-10] MEDS: ENOXAPARIN 40 MG/0.4 ML SYR SC SCH (08:59)
[2018-03-10] MEDS: levETIRAcetam 500 MG TAB PO SCH ×2 (08:59→20:04)
[2018-03-10] MEDS: TAMSULOSIN HCL 0.4 MG CAP PO SCH (08:59)
[2018-03-10] MEDS: ACETAMINOPHEN 325 MG TAB PO PRN ×2 (11:14→20:04)
--- NOTE | 2018-03-10 14:14 | SOAPPROG ---
SOAP Progress Note Assessment/Plan: Assessment: 68 yo healthy male with new seizure d/t brain tumor resulting in fall with multiple fractures * Debility with TTWB on left leg due to iliac wing/acetabular/posterior pubic rami fractures, and right hip fracture status post arthroplasty. * Initial functional independence measure is 67 on 03/06/2018. Needs minimal to moderate assistance for bed mobility to assist with trunk and leg control. Transfers with minimal assist using a front wheeled walker. Ambulated 35 ft with a front wheeled walker, contact guard assist and cues for hand placement. Requires maximal assistance for lower body dressing and supervision/setup for upper body dressing. Minimal assist for bathing and for toilet transfer. Does grooming and hygiene seated. * Improving, with ambulation as far as 60 ft and advancing to contact guard assist for most ADLs. * Continue PT and OT. * cognitive impairment * Scored 19/30 on the [facility] mental status exam. Has decreased memory, insight, problem solving and attention. 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 * Brain tumor * s/p resection. * expecting chemo in 2-3 weeks. Pathology report reviewed 03/09/2018. Does not appear to have favorable prognostic indicators, glioblastoma multiform, IDH wild type. Seen by Oncology 03/09/2018. * Completed dexamethasone today, 03/09/2018. Continue levetiracetam for seizure prophylaxis. * urinary retention * didn't have problems before surgery * has been on Flomax * Has retention s/p d/c of catheter 03/05/2018. Required catheterization 2017 with 700 cc returned. Possible etiologies include cyclobenzaprine, R frontal craniotomy and tumor excision, and sacral hematoma from pelvic fractures. Increased tamsulosin to 0.8 mg QD starting 03/06/2018. DC cyclobenzaprine. * Discussed with patient 03/07/2018. He prefers to continue intermittent catheterization in the hopes that his voiding can improve. Scheduled bladder scan and intermittent catheterization q.8 hours. * T5 compression fracture * no brace unless it becomes painful * Pain management appears to be adequate with acetaminophen. * Insomnia * Using temazepam at bedtime. Reports poor sleep overnight 03/05 - 03/06/2018. Continue monitor. * Started trazodone on 03/06/2018, and he did not use temazepam. * Expect improvement with completion of dexamethasone. * Probable osteoporosis * orthopedic surgery noted poor bone quality * had been a vegan for many year - possibly nutrition related * vitamin D normal * testosterone low-normal * leukocytosis * probably from steroids *hyponatremia * urine na c/w SIADH * start fluid restriction * Sodium improved from 131 to 132 on 03/06/2018. Continue to monitor. *anemia * DVT proph - has increased DVT risk due to solid tumor and reduced mobility. As of 03/06/2018, ambulated 35 ft. Continue enoxaparin until mobility improves. DISPOSITION: Lives alone. Has assistance from his brother as well as friends. Goal is to be able to function at the modified independent level. Tentative discharge date set for 03/17/2018. FOLLOW-UP: Oncologist Dr. Snell, neurosurgery Dr. Tristan, PC P Dr. Baeza. Dr. Baeza wishes to be kept informed of progress. Her phone number is . Discussed pathology and prognosis with Dr. Baeza, 03/09/2018. Orthopedic surgeon Dr. Hawkins; left message for his medical lab technician 03/10/2018. Incisions were closed with Dermabond so there are no sutures or ana to remove. 03/10/18 14:04 Subjective: Asks about orthopedic follow-up plan. Feels that he is voiding better. Objective: Vital Signs Temp Pulse Resp BP Pulse Ox 36.9 C 71 16 97/58 L 91 L 03/10/18 05:36 03/10/18 05:36 03/10/18 05:36 03/10/18 05:36 03/10/18 05:36 Laboratory Results 03/04/18 06:10 03/06/18 06:00 03/09/18 03/10/18 03/11/18 05:59 05:59 05:59 Intake Total 150 490 Output Total 1800 5704 617 Balance -8220 -2045 -658 Physical Exam - Physical Exam General Appearance: WD/WN, alert, no apparent distress Respiratory: No respiratory distress, No accessory muscle use Skin: normal color, warm/dry Neuro/Psych: alert, normal mood/affect, oriented x 3 ICD10 Worksheet Patient Problems: Problems Problem Status Onset Altered mental state Acute Brain lesion Acute Elevated d-dimer Acute Glucosuria Acute Hypoxemia Acute Rhabdomyolysis Acute Traumatic compression fracture of T5 thoracic vertebra Acute Vomiting Acute
[2018-03-10] MEDS: TEMAZEPAM 15 MG CAP PO PRN (20:05)
[2018-03-11] MEDS: ACETAMINOPHEN 325 MG TAB PO PRN ×3 (01:41→19:28)
[2018-03-11] MEDS: TAMSULOSIN HCL 0.4 MG CAP PO SCH (10:10)
[2018-03-11] MEDS: SENNOSIDES 17.6 MG/10 ML UDL PO PRN (10:10)
[2018-03-11] MEDS: ENOXAPARIN 40 MG/0.4 ML SYR SC SCH (10:10)
[2018-03-11] MEDS: levETIRAcetam 500 MG TAB PO SCH ×2 (10:11→19:28)
--- NOTE | 2018-03-11 14:50 | SOAPPROG ---
SOAP Progress Note Assessment/Plan: Assessment: 68 yo healthy male with new seizure d/t brain tumor resulting in fall with multiple fractures * Debility with TTWB on left leg due to iliac wing/acetabular/posterior pubic rami fractures, and right hip fracture status post arthroplasty. * Initial functional independence measure is 67 on 03/06/2018. Needs minimal to moderate assistance for bed mobility to assist with trunk and leg control. Transfers with minimal assist using a front wheeled walker. Ambulated 35 ft with a front wheeled walker, contact guard assist and cues for hand placement. Requires maximal assistance for lower body dressing and supervision/setup for upper body dressing. Minimal assist for bathing and for toilet transfer. Does grooming and hygiene seated. * Improving, with ambulation as far as 60 ft and advancing to contact guard assist for most ADLs. * Continue PT and OT. * cognitive impairment * Scored 19/30 on the [facility] mental status exam. Has decreased memory, insight, problem solving and attention. 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 * Brain tumor * s/p resection. * expecting chemo in 2-3 weeks. Pathology report reviewed 03/09/2018. Does not appear to have favorable prognostic indicators; glioblastoma multiform, IDH wild type. Seen by Oncology 03/09/2018. * Completed dexamethasone 03/09/2018. Continue levetiracetam for seizure prophylaxis. * urinary retention * didn't have problems before surgery * has been on Flomax * Has retention s/p d/c of catheter 03/05/2018. Required catheterization 2017 with 700 cc returned. Possible etiologies include cyclobenzaprine, R frontal craniotomy and tumor excision, and sacral hematoma from pelvic fractures. Increased tamsulosin to 0.8 mg QD starting 03/06/2018. DC cyclobenzaprine. * Discussed with patient 03/07/2018. He prefers to continue intermittent catheterization in the hopes that his voiding can improve. Scheduled bladder scan and intermittent catheterization q.8 hours. * No longer requiring catheterization as of 03/11/2018. * T5 compression fracture * no brace unless it becomes painful * Pain management appears to be adequate with acetaminophen. * Insomnia * Using temazepam at bedtime. Reports poor sleep overnight 03/05 - 03/06/2018. Continue monitor. * Started trazodone on 03/06/2018. He is consistently using temazepam and not trazodone. * Probable osteoporosis * orthopedic surgery noted poor bone quality * had been a vegan for many year - possibly nutrition related * vitamin D normal * testosterone low-normal * leukocytosis * probably from steroids *hyponatremia * urine na c/w SIADH * start fluid restriction * Sodium improved from 131 to 132 on 03/06/2018. Continue to monitor. *anemia * DVT proph - has increased DVT risk due to solid tumor and reduced mobility. Continue enoxaparin until mobility improves. DISPOSITION: Lives alone. Has assistance from his brother as well as friends. Goal is to be able to function at the modified independent level. Tentative discharge date set for 03/17/2018. FOLLOW-UP: Oncologist Dr. Snell, neurosurgery Dr. Tristan, PC P Dr. Baeza. Dr. Baeza wishes to be kept informed of progress. Her phone number is . Discussed pathology and prognosis with Dr. Baeza, 03/09/2018. Orthopedic surgeon Dr. Hawkins; left message for his medical officer 03/10/2018. Incisions were closed with Dermabond so there are no sutures or ana to remove. 03/11/18 14:46 Subjective: Did not require catheterization yesterday but says he was up all night peeing. Concerned about swelling in his right foot. Otherwise without acute complaints. Objective: Vital Signs Temp Pulse Resp BP Pulse Ox 36.7 C 91 16 88/58 L 94 03/11/18 09:00 03/11/18 09:00 03/11/18 09:00 03/11/18 09:00 03/11/18 09:00 Laboratory Results 03/04/18 06:10 03/06/18 06:00 03/10/18 03/11/18 03/12/18 05:59 05:59 05:59 Intake Total 490 Output Total 1490 1717 969 Balance -8500 -2220 -450 Physical Exam - Physical Exam General Appearance: WD/WN, alert, no apparent distress Respiratory: No respiratory distress, No accessory muscle use Cardiac/Chest: edema (Trace to 1+ distal right foot) Skin: normal color, warm/dry Neuro/Psych: alert, normal mood/affect, oriented x 3 ICD10 Worksheet Patient Problems: Problems Problem Status Onset Altered mental state Acute Brain lesion Acute Elevated d-dimer Acute Glucosuria Acute Hypoxemia Acute Rhabdomyolysis Acute Traumatic compression fracture of T5 thoracic vertebra Acute Vomiting Acute
[2018-03-11] MEDS: TEMAZEPAM 15 MG CAP PO PRN (19:29)
[2018-03-12] MEDS: ACETAMINOPHEN 325 MG TAB PO PRN ×3 (00:18→20:37)
[2018-03-12] MEDS: TAMSULOSIN HCL 0.4 MG CAP PO SCH (08:45)
[2018-03-12] MEDS: levETIRAcetam 500 MG TAB PO SCH ×2 (08:45→20:29)
[2018-03-12] MEDS: ENOXAPARIN 40 MG/0.4 ML SYR SC SCH (08:45)
[2018-03-12] MEDS ORDERED: NITROFURANTOIN MACROBID 100 MG CAP PO SCH (11:15)
--- NOTE | 2018-03-12 11:57 | SOAPPROG ---
SOAP Progress Note Assessment/Plan: Assessment: 68 yo healthy male with new seizure d/t brain tumor resulting in fall with multiple fractures * Debility with TTWB on left leg due to iliac wing/acetabular/posterior pubic rami fractures, and right hip fracture status post arthroplasty. * Initial functional independence measure is 67 on 03/06/2018. Needs minimal to moderate assistance for bed mobility to assist with trunk and leg control. Transfers with minimal assist using a front wheeled walker. Ambulated 35 ft with a front wheeled walker, contact guard assist and cues for hand placement. Requires maximal assistance for lower body dressing and supervision/setup for upper body dressing. Minimal assist for bathing and for toilet transfer. Does grooming and hygiene seated. * Improving, with ambulation as far as 60 ft and advancing to contact guard assist for most ADLs. * Continue PT and OT. * cognitive impairment * Scored 19/30 on the [facility] mental status exam. Has decreased memory, insight, problem solving and attention. * Continue METAL BOX MAKER. * Brain tumor * s/p resection. * expecting chemo in 2-3 weeks. Pathology report reviewed 03/09/2018. Does not appear to have favorable prognostic indicators; glioblastoma multiform, IDH wild type. Seen by Oncology 03/09/2018. * Completed dexamethasone 03/09/2018. Continue levetiracetam for seizure prophylaxis. * urinary retention * didn't have problems before surgery * has been on Flomax * Has retention s/p d/c of catheter 03/05/2018. Required catheterization 2017 with 700 cc returned. Possible etiologies include cyclobenzaprine, R frontal craniotomy and tumor excision, and sacral hematoma from pelvic fractures. Increased tamsulosin to 0.8 mg QD starting 03/06/2018. DC cyclobenzaprine. * Discussed with patient 03/07/2018. He prefers to continue intermittent catheterization in the hopes that his voiding can improve. Scheduled bladder scan and intermittent catheterization q.8 hours. * No longer requiring catheterization as of 03/11/2018. * Likely UTI on urinalysis 03/11/2018. Await culture and sensitivity, and observe for resolution of symptoms. Will continue discuss regarding antibiotic treatment. * T5 compression fracture * no brace unless it becomes painful * Pain management appears to be adequate with acetaminophen. * Insomnia * Using temazepam at bedtime. Reports poor sleep overnight 03/05 - 03/06/2018. Continue monitor. * Started trazodone on 03/06/2018. He is consistently using temazepam and not trazodone. Discontinue trazodone 03/12/2018. * Probable osteoporosis * orthopedic surgery noted poor bone quality * had been a vegan for many year - possibly nutrition related * vitamin D normal * testosterone low-normal * leukocytosis * probably from steroids *hyponatremia * urine na c/w SIADH * start fluid restriction * Sodium improved from 131 to 132 on 03/06/2018. Continue to monitor. *anemia * DVT proph - has increased DVT risk due to solid tumor and reduced mobility. Continue enoxaparin until mobility improves. DISPOSITION: Lives alone. Has assistance from his brother as well as friends. Goal is to be able to function at the modified independent level. Tentative discharge date set for 03/17/2018. FOLLOW-UP: Oncologist Dr. Snell, neurosurgery Dr. Tristan, PC P Dr. Baeza. Dr. Baeza wishes to be kept informed of progress. Her phone number is . Discussed pathology and prognosis with Dr. Baeza, 03/09/2018. Orthopedic surgeon Dr. Hawkins; left message for his medical record coder 03/10/2018. Incisions were closed with Dermabond so there are no sutures or ana to remove. 03/12/18 11:55 Subjective: Had urinary frequency overnight and describes itching with urination; no pain no burning no flank pain no fevers or chills. Nurse obtained UA which is consistent with UTI but he prefers to wait for culture and sensitivity and see if symptoms resolve on their own rather than taking antibiotics. Objective: Vital Signs Temp Pulse Resp BP Pulse Ox 36.5 C 82 16 100/62 93 03/12/18 04:40 03/12/18 04:40 03/12/18 04:40 03/12/18 04:40 03/12/18 04:40 Laboratory Results 03/04/18 06:10 03/06/18 06:00 03/11/18 03/12/18 03/13/18 05:59 05:59 05:59 Intake Total 600 Output Total 5690 2350 850 Balance -2690 -2350 -250 Physical Exam - Physical Exam General Appearance: WD/WN, alert, no apparent distress Respiratory: No respiratory distress, No accessory muscle use Skin: normal color, warm/dry Neuro/Psych: alert, normal mood/affect, oriented x 3 ICD10 Worksheet Patient Problems: Problems Problem Status Onset Altered mental state Acute Brain lesion Acute Elevated d-dimer Acute Glucosuria Acute Hypoxemia Acute Rhabdomyolysis Acute Traumatic compression fracture of T5 thoracic vertebra Acute Vomiting Acute
[2018-03-12] MEDS: SENNOSIDES 17.6 MG/10 ML UDL PO PRN (12:14)
[2018-03-12] MEDS: TEMAZEPAM 15 MG CAP PO PRN (20:29)
[2018-03-13] MEDS: SENNOSIDES 17.6 MG/10 ML UDL PO PRN ×2 (01:32→21:09)
[2018-03-13] MEDS: ACETAMINOPHEN 325 MG TAB PO PRN ×3 (03:03→21:08)
[2018-03-13] MEDS: ENOXAPARIN 40 MG/0.4 ML SYR SC SCH (07:50)
[2018-03-13] MEDS: TAMSULOSIN HCL 0.4 MG CAP PO SCH (10:38)
[2018-03-13] MEDS: levETIRAcetam 500 MG TAB PO SCH ×2 (10:39→21:08)
--- NOTE | 2018-03-13 11:54 | SOAPPROG ---
SOAP Progress Note Assessment/Plan: Assessment: 68 yo healthy male with new seizure d/t brain tumor resulting in fall with multiple fractures * Debility with TTWB on left leg due to iliac wing/acetabular/posterior pubic rami fractures, and right hip fracture status post arthroplasty. * Initial functional independence measure is 67 on 03/06/2018; improved to 87 as of 03/13/2018. Standby assist for bed mobility except occasional minimal assist for the left lower extremity. Transfers with standby assist. Ambulated 70 ft standby assist with front wheeled walker. Climbed and descended 3 steps with 1 rail with contact guard to minimal assist. Minimal assist for bathing but otherwise standby assist for ADLs. * Continue PT and OT. * cognitive impairment * Scored 19/30 on the [facility] mental status exam. Has decreased memory, insight, problem solving and attention. * Continue CLOTHES PRESSER. * Brain tumor * s/p resection. * expecting chemo in 2-3 weeks. Pathology report reviewed 03/09/2018. Does not appear to have favorable prognostic indicators; glioblastoma multiform, IDH wild type. Seen by Oncology 03/09/2018. * Completed dexamethasone 03/09/2018. Continue levetiracetam for seizure prophylaxis. * urinary retention * didn't have problems before surgery * has been on Flomax * Has retention s/p d/c of catheter 03/05/2018. Required catheterization 2017 with 700 cc returned. Possible etiologies include cyclobenzaprine, R frontal craniotomy and tumor excision, and sacral hematoma from pelvic fractures. Increased tamsulosin to 0.8 mg QD starting 03/06/2018. DC cyclobenzaprine. * Discussed with patient 03/07/2018. He prefers to continue intermittent catheterization in the hopes that his voiding can improve. Scheduled bladder scan and intermittent catheterization q.8 hours. * No longer requiring catheterization as of 03/11/2018. * Likely UTI on urinalysis 03/11/2018. Await culture and sensitivity, and observe for resolution of symptoms. Will continue discuss regarding antibiotic treatment. Check CBC peer *hyponatremia * urine na c/w SIADH * start fluid restriction * Sodium improved from 131 to 132 on 03/06/2018. Check BMP 03/13/2018. * T5 compression fracture * no brace unless it becomes painful * Pain management appears to be adequate with acetaminophen. * Insomnia * Using temazepam at bedtime. Reports poor sleep overnight 03/05 - 03/06/2018. Continue monitor. * Started trazodone on 03/06/2018. He is consistently using temazepam and not trazodone. Discontinue trazodone 03/12/2018. * Probable osteoporosis * orthopedic surgery noted poor bone quality * had been a vegan for many year - possibly nutrition related * vitamin D normal * testosterone low-normal * leukocytosis * probably from steroids *anemia * DVT proph - has increased DVT risk due to solid tumor and reduced mobility. Continue enoxaparin until mobility improves. DISPOSITION: Attended staffing, 15 min. Discussed with case management, dietitian, nursing, PT, OT, CLOTHES PRESSER. Phone conversation with primary care provider. Lives alone. Has assistance from his brother as well as friends, but no one will be able to live with him and provide direct care. Planning discharge [facility] until he regains weight-bearing status, likely mid March. Discharge date set for 03/17/2018. FOLLOW-UP: Oncologist Dr. Snell, neurosurgery Dr. Tristan, PC P Dr. Baeza. Dr. Baeza wishes to be kept informed of progress. Her phone number is [phone]. Discussed pathology and prognosis with Dr. Baeza, 03/09/2018. Orthopedic surgeon Dr. Hawkins; left message for his director medical 03/10/2018. Incisions were closed with Dermabond so there are no sutures or ana to remove. 03/13/18 11:49 Subjective: Add frequent voiding overnight. Reports that his friend brought a large quantity of chicken broth in for him and he drank a lot before bed. Denies fevers chills or dysuria. Objective: Vital Signs Temp Pulse Resp BP Pulse Ox 36.5 C 91 16 102/64 93 03/12/18 19:41 03/12/18 19:41 03/12/18 19:41 03/12/18 19:41 03/12/18 19:41 Laboratory Results 03/04/18 06:10 03/06/18 06:00 03/12/18 03/13/18 03/14/18 05:59 05:59 05:59 Intake Total 1720 Output Total 1655 3695 8558 Balance -0318 -7753 -3639 - Time Spent With Patient Time Spent With Patient: Greater than 35 min floor time today, including more than 50% of time in coordination of care during staffing meeting and in conversation with primary care provider, and counseling patient. Physical Exam - Physical Exam General Appearance: WD/WN, alert, no apparent distress Respiratory: No respiratory distress, No accessory muscle use Skin: normal color, warm/dry Neuro/Psych: alert, normal mood/affect, oriented x 3 ICD10 Worksheet Patient Problems: Problems Problem Status Onset Altered mental state Acute Brain lesion Acute Elevated d-dimer Acute Glucosuria Acute Hypoxemia Acute Rhabdomyolysis Acute Traumatic compression fracture of T5 thoracic vertebra Acute Vomiting Acute
[2018-03-13 13:57] LABS: PLATELET COUNT 194 10^3/uL (150-400)
--- NOTE | 2018-03-13 16:29 | WOCRNPDOC ---
WOCRN Advanced Assessment Note - Skin Integrity Problem, Advanced Assess Sacrum Dressing Type: Mepilex Border Wound Bed Constitution: Healed Pressure Injury Stage: Stage 2 Pressure Injury Present on Admit: Yes Skin Integrity Problem Comment: Completely healed and epithelized. May keep covered with Mepilex border for protection, or use blue top dimethicone cream daily for moisturizing. No calazime please. Wound care will sign off. Shilpa CAPELLAN in room for care.
[2018-03-13] MEDS: TEMAZEPAM 15 MG CAP PO PRN (21:08)
[2018-03-14] MEDS: ACETAMINOPHEN 325 MG TAB PO PRN ×2 (05:07→20:06)
[2018-03-14] MEDS: TAMSULOSIN HCL 0.4 MG CAP PO SCH (08:27)
[2018-03-14] MEDS: levETIRAcetam 500 MG TAB PO SCH ×2 (08:27→20:04)
[2018-03-14] MEDS: ENOXAPARIN 40 MG/0.4 ML SYR SC SCH (08:28)
--- NOTE | 2018-03-14 12:41 | SOAPPROG ---
SOAP Progress Note Assessment/Plan: Assessment: 68 yo healthy male with new seizure d/t brain tumor resulting in fall with multiple fractures * Debility with TTWB on left leg due to iliac wing/acetabular/posterior pubic rami fractures, and right hip fracture status post arthroplasty. * Initial functional independence measure is 67 on 03/06/2018; improved to 87 as of 03/13/2018. Standby assist for bed mobility except occasional minimal assist for the left lower extremity. Transfers with standby assist. Ambulated 70 ft standby assist with front wheeled walker. Climbed and descended 3 steps with 1 rail with contact guard to minimal assist. Minimal assist for bathing but otherwise standby assist for ADLs. * Continue PT and OT. * cognitive impairment * Scored 19/[address] [facility] mental status exam. Has decreased memory, insight, problem solving and attention. * Continue PRODUCTION GENERALIST. * Brain tumor * s/p resection. * expecting chemo in 2-3 weeks. Pathology report reviewed 03/09/2018. Does not appear to have favorable prognostic indicators; glioblastoma multiform, IDH wild type. Seen by Oncology 03/09/2018. * Completed dexamethasone 03/09/2018. Continue levetiracetam for seizure prophylaxis. * urinary retention * didn't have problems before surgery * has been on Flomax * Has retention s/p d/c of catheter 03/05/2018. Required catheterization 2017 with 700 cc returned. Possible etiologies include cyclobenzaprine, R frontal craniotomy and tumor excision, and sacral hematoma from pelvic fractures. Increased tamsulosin to 0.8 mg QD starting 03/06/2018. DC cyclobenzaprine. * Discussed with patient 03/07/2018. He prefers to continue intermittent catheterization in the hopes that his voiding can improve. Scheduled bladder scan and intermittent catheterization q.8 hours. * No longer requiring catheterization as of 03/11/2018. * Likely UTI on urinalysis 03/11/2018. * Culture with greater than 100,000 CFU per mL of Proteus and of another gram- negative. Sensitivities not available yet. * He prefers to await sensitivities before deciding on treatment. * No leukocytosis. * Left shoulder pain * No fractures on x-ray and hospital. Likely soft tissue sprain or strain * Possibly exacerbated by need to weight bear on walker with toe-touch weight- bearing on the left lower extremity. * Trial of diclofenac gel starting 03/14/2018. *hyponatremia * urine na c/w SIADH * start fluid restriction * Sodium improved from 131 to 132 on 03/06/2018. Stable on BMP 03/13/2018.. * T5 compression fracture * no brace unless it becomes painful * Pain management appears to be adequate with acetaminophen. * Insomnia * Using temazepam at bedtime. Reports attaining sleep well but difficulty to regain sleep after he has up to urinate at about 2 in the morning. * Will schedule trazodone at HS and continue temazepam p.r.n. so that he may have a dose of temazepam should he find himself unable to regain sleep during the night. * Probable osteoporosis * orthopedic surgery noted poor bone quality * had been a vegan for many year - possibly nutrition related * vitamin D normal * testosterone low-normal * leukocytosis * probably from steroids *anemia, improving on CBC 03/13/2018 * DVT proph - has increased DVT risk due to solid tumor and reduced mobility. Continue enoxaparin until mobility improves. DISPOSITION: Lives alone. Has assistance from his brother as well as friends, but no one will be able to live with him and provide direct care. Planning discharge to long term facility until he regains weight-bearing status, likely mid March. Discharge date set for 03/17/2018. FOLLOW-UP: Oncologist Dr. Snell, neurosurgery Dr. Tristan, PC P Dr. Baeza. Dr. Baeza wishes to be kept informed of progress. Her phone number is [phone]. Discussed pathology and prognosis with Dr. Baeza, 03/09/2018. Orthopedic surgeon Dr. Hawkins; left message for his medical support assistant 03/10/2018. Incisions were closed with Dermabond so there are no sutures or ana to remove. 03/14/18 12:42 Subjective: Has frequent urination. Has difficulty returning to sleep after urinating night though he attain sleep well with temazepam. Notes some mild irritation at the end of urination. No pelvic pain, no flank pain no fevers or chills. Continues to complain of left shoulder pain. PT reports that he must use his upper extremities on the front wheeled walker to augment weight-bearing with toe -touch weight-bearing of the left lower extremity. Objective: Vital Signs Temp Pulse Resp BP Pulse Ox 36.6 C 72 16 95/50 L 94 03/14/18 06:40 03/14/18 06:40 03/14/18 06:40 03/14/18 06:40 03/14/18 06:40 Laboratory Results 03/13/18 13:49 03/13/18 13:49 03/13/18 03/14/18 03/15/18 05:59 05:59 05:59 Intake Total 1720 1250 Output Total 5510 3000 600 Balance -3870 -5560 -600 Physical Exam - Physical Exam General Appearance: WD/WN, alert, no apparent distress Respiratory: No respiratory distress, No accessory muscle use Skin: normal color, warm/dry Neuro/Psych: alert, normal mood/affect, oriented x 3 ICD10 Worksheet Patient Problems: Problems Problem Status Onset Altered mental state Acute Brain lesion Acute Elevated d-dimer Acute Glucosuria Acute Hypoxemia Acute Rhabdomyolysis Acute Traumatic compression fracture of T5 thoracic vertebra Acute Vomiting Acute
[2018-03-14] MEDS: DICLOFENAC SODIUM 1% 100 GM GEL TP SCH ×2 (17:31→20:06)
[2018-03-14] MEDS: traZODone 50 MG TAB PO SCH (20:04)
[2018-03-15] MEDS: ACETAMINOPHEN 325 MG TAB PO PRN ×2 (02:12→20:43)
[2018-03-15] MEDS: SENNOSIDES 17.6 MG/10 ML UDL PO PRN (02:13)
[2018-03-15] MEDS: DICLOFENAC SODIUM 1% 100 GM GEL TP SCH ×4 (05:48→20:44)
[2018-03-15] MEDS: levETIRAcetam 500 MG TAB PO SCH ×2 (09:36→20:43)
[2018-03-15] MEDS: ENOXAPARIN 40 MG/0.4 ML SYR SC SCH (09:36)
[2018-03-15] MEDS: TAMSULOSIN HCL 0.4 MG CAP PO SCH (09:36)
--- NOTE | 2018-03-15 10:47 | SOAPPROG ---
SOAP Progress Note Assessment/Plan: Assessment: 68 yo healthy male with new seizure d/t brain tumor resulting in fall with multiple fractures * Debility with TTWB on left leg due to iliac wing/acetabular/posterior pubic rami fractures, and right hip fracture status post arthroplasty. * Initial functional independence measure is 67 on 03/06/2018; improved to 87 as of 03/13/2018. Standby assist for bed mobility except occasional minimal assist for the left lower extremity. Transfers with standby assist. Ambulated 70 ft standby assist with front wheeled walker. Climbed and descended 3 steps with 1 rail with contact guard to minimal assist. Minimal assist for bathing but otherwise standby assist for ADLs. * Inconsistently compliant with therapies. * Continue PT and OT. * cognitive impairment * Scored 19/30 on the [facility] mental status exam. Subsequently improved to 29/30. * Continue PRODUCTION MATERIAL HANDLER. * Brain tumor * s/p resection. * expecting chemo in 2-3 weeks. Pathology report reviewed 03/09/2018. Does not appear to have favorable prognostic indicators; glioblastoma multiform, IDH wild type. Seen by Oncology 03/09/2018. * Completed dexamethasone 03/09/2018. Continue levetiracetam for seizure prophylaxis. * urinary retention * didn't have problems before surgery * has been on Flomax * Has retention s/p d/c of catheter 03/05/2018. Required catheterization 2017 with 700 cc returned. Possible etiologies include cyclobenzaprine, R frontal craniotomy and tumor excision, and sacral hematoma from pelvic fractures. Increased tamsulosin to 0.8 mg QD starting 03/06/2018. DC cyclobenzaprine. * Discussed with patient 03/07/2018. He prefers to continue intermittent catheterization in the hopes that his voiding can improve. Scheduled bladder scan and intermittent catheterization q.8 hours. * No longer requiring catheterization as of 03/11/2018. * Likely UTI on urinalysis 03/11/2018. * Culture with greater than 100,000 CFU per mL of Proteus and of another gram- negative. Proteus resistant to nitrofurantoin and tetracycline. 2nd organism not yet identified. * No leukocytosis. * He desires treatment in the hope of reducing urinary frequency and sleeping better. Will initiate cephalexin 500 mg twice daily x7 days. Await ID and susceptibility of 2nd organism. * Left shoulder pain * No fractures on x-ray and hospital. Likely soft tissue sprain or strain * Possibly exacerbated by need to weight bear on walker with toe-touch weight- bearing on the left lower extremity. * Trial of diclofenac gel starting 03/14/2018. *hyponatremia * urine na c/w SIADH * start fluid restriction * Sodium improved from 131 to 132 on 03/06/2018. Stable on BMP 03/13/2018.. * T5 compression fracture * no brace unless it becomes painful * Pain management appears to be adequate with acetaminophen. * Insomnia * Using temazepam at bedtime. Reports attaining sleep well but difficulty to regain sleep after he has up to urinate at about 2 in the morning. * Will schedule trazodone at HS and continue temazepam p.r.n. so that he may have a dose of temazepam should he find himself unable to regain sleep during the night. * Probable osteoporosis * orthopedic surgery noted poor bone quality * had been a vegan for many year - possibly nutrition related * vitamin D normal * testosterone low-normal * leukocytosis * probably from steroids *anemia, improving on CBC 03/13/2018 * DVT proph - has increased DVT risk due to solid tumor and reduced mobility. Continue enoxaparin until mobility improves. DISPOSITION: Lives alone. Has assistance from his brother as well as friends, but no one will be able to live with him and provide direct care. Planning discharge to [facility] facility until he regains weight-bearing status, likely mid March. Discharge date set for 03/17/2018. He plans to appeal discharge and would like to stay here longer, however he is inconsistently compliant with therapies. FOLLOW-UP: Oncologist Dr. Snell, neurosurgery Dr. Tristan, PC P Dr. Baeza. Dr. Baeza wishes to be kept informed of progress. Her phone number is . Discussed pathology and prognosis with Dr. Baeza, 03/09/2018. Orthopedic surgeon Dr. Hawkins; left message for his medical dosimetrist 03/10/2018. Incisions were closed with Dermabond so there are no sutures or ana to remove. 03/15/18 10:43 Subjective: Still up to void multiple times overnight and has some discomfort with voiding. No fevers or chills, no flank pain. Attain sleep well and slept well until he had to get up during the night in and then had difficulty re-attaining sleep. Otherwise without complaints. Objective: Vital Signs Temp Pulse Resp BP Pulse Ox 36.5 C 65 15 116/68 93 03/15/18 06:17 03/15/18 06:17 03/15/18 06:17 03/15/18 06:17 03/15/18 06:17 Laboratory Results 03/13/18 13:49 03/13/18 13:49 03/14/18 03/15/18 03/16/18 05:59 05:59 05:59 Intake Total 1250 1850 Output Total 3000 3100 300 Balance -1750 -1250 -300 Physical Exam - Physical Exam General Appearance: WD/WN, alert, no apparent distress Respiratory: No respiratory distress, No accessory muscle use Skin: normal color, warm/dry Neuro/Psych: alert, normal mood/affect, oriented x 3 ICD10 Worksheet Patient Problems: Problems Problem Status Onset Altered mental state Acute Brain lesion Acute Elevated d-dimer Acute Glucosuria Acute Hypoxemia Acute Rhabdomyolysis Acute Traumatic compression fracture of T5 thoracic vertebra Acute Vomiting Acute
[2018-03-15] MEDS: CEPHALEXIN 500 MG CAP PO SCH ×2 (12:41→20:43)
[2018-03-15] MEDS: traZODone 50 MG TAB PO SCH (20:43)
[2018-03-16] MEDS: DICLOFENAC SODIUM 1% 100 GM GEL TP SCH ×4 (06:13→20:24)
[2018-03-16] MEDS: ENOXAPARIN 40 MG/0.4 ML SYR SC SCH (07:49)
[2018-03-16] MEDS: levETIRAcetam 500 MG TAB PO SCH ×2 (09:01→20:24)
[2018-03-16] MEDS: CEPHALEXIN 500 MG CAP PO SCH ×2 (09:01→20:24)
[2018-03-16] MEDS: TAMSULOSIN HCL 0.4 MG CAP PO SCH (09:02)
--- NOTE | 2018-03-16 14:17 | SOAPPROG ---
SOAP Progress Note Assessment/Plan: Assessment: 68 yo healthy male with new seizure d/t brain tumor resulting in fall with multiple fractures * Debility with TTWB on left leg due to iliac wing/acetabular/posterior pubic rami fractures, and right hip fracture status post arthroplasty. * Initial functional independence measure is 67 on 03/06/2018; improved to 87 as of 03/13/2018. Standby assist for bed mobility except occasional minimal assist for the left lower extremity. Transfers with standby assist. Ambulated 70 ft standby assist with front wheeled walker. Climbed and descended 3 steps with 1 rail with contact guard to minimal assist. Minimal assist for bathing but otherwise standby assist for ADLs. * Inconsistently compliant with therapies. * Continue PT and OT. * cognitive impairment * Scored 19/30 on the [facility] mental status exam. Subsequently improved to 29/30. * Continue PARTS CHASER. * Brain tumor * s/p resection. * expecting chemo in 2-3 weeks. Pathology report reviewed 03/09/2018. Does not appear to have favorable prognostic indicators; glioblastoma multiform, IDH wild type. Seen by Oncology 03/09/2018. * Completed dexamethasone 03/09/2018. Continue levetiracetam for seizure prophylaxis. * urinary retention * didn't have problems before surgery * has been on Flomax * Has retention s/p d/c of catheter 03/05/2018. Required catheterization 2017 with 700 cc returned. Possible etiologies include cyclobenzaprine, R frontal craniotomy and tumor excision, and sacral hematoma from pelvic fractures. Increased tamsulosin to 0.8 mg QD starting 03/06/2018. DC cyclobenzaprine. * Discussed with patient 03/07/2018. He prefers to continue intermittent catheterization in the hopes that his voiding can improve. Scheduled bladder scan and intermittent catheterization q.8 hours. * No longer requiring catheterization as of 03/11/2018. * Likely UTI on urinalysis 03/11/2018. * Culture with greater than 100,000 CFU per mL of Proteus and Klebsiella. Both organisms susceptible to cefazolin. * No leukocytosis. * He desires treatment in the hope of reducing urinary frequency and sleeping better. Continue cephalexin 500 mg twice daily x7 days, started 03/15/2018.. Appears to be responding with resolution of dysuria as of 03/16/2018 * Left shoulder pain * No fractures on x-ray and hospital. Likely soft tissue sprain or strain * Possibly exacerbated by need to weight bear on walker with toe-touch weight- bearing on the left lower extremity. * Improved with diclofenac gel starting 03/14/2018. *hyponatremia * urine na c/w SIADH * start fluid restriction * Sodium improved from 131 to 132 on 03/06/2018. Stable on BMP 03/13/2018.. * T5 compression fracture * no brace unless it becomes painful * Pain management appears to be adequate with acetaminophen. * Insomnia * Using temazepam at bedtime. Reports attaining sleep well but difficulty to regain sleep after he has up to urinate at about 2 in the morning. * Schedule trazodone at HS starting 03/14/2018. Temazepam is available if he is unable to sleep subsequently, but he has not used it since 03/13/2018. * Probable osteoporosis * orthopedic surgery noted poor bone quality * had been a vegan for many year - possibly nutrition related * vitamin D normal * testosterone low-normal * leukocytosis * probably from steroids *anemia, improving on CBC 03/13/2018 * DVT proph - has increased DVT risk due to solid tumor and reduced mobility. Continue enoxaparin until mobility improves. DISPOSITION: Lives alone. Has assistance from his brother as well as friends, but no one will be able to live with him and provide direct care. Planning discharge to longterm facility until he regains weight-bearing status, likely mid March. Discharge date set for 03/17/2018. He plans to appeal discharge and would like to stay here longer, however he is inconsistently compliant with therapies. FOLLOW-UP: Oncologist Dr. Snell, neurosurgery Dr. Tristan, PC P Dr. Baeza. Dr. Baeza wishes to be kept informed of progress. Her phone number is [phone]. Discussed pathology and prognosis with Dr. Baeza, 03/09/2018. Orthopedic surgeon Dr. Hawkins; left message for his medical unit secretary 03/10/2018. Incisions were closed with Dermabond so there are no sutures or ana to remove. 03/16/18 14:12 Subjective: Slept better last night. Discomfort with urination has resolved but says he was still up 4 times to urinate. Left shoulder pain is better with diclofenac gel but he still has some pain. Otherwise without complaints. Objective: Vital Signs Temp Pulse Resp BP Pulse Ox 36.5 C 82 15 97/65 L 93 03/16/18 06:21 03/16/18 06:21 03/16/18 06:21 03/16/18 06:21 03/16/18 06:21 Microbiology 03/12/18 11:13 Urine Culture - Final Urine,Clean Catch Proteus Mirabilis Klebsiella Pneumoniae Ssp Pneu Laboratory Results 03/13/18 13:49 03/13/18 13:49 03/15/18 03/16/18 03/17/18 05:59 05:59 05:59 Intake Total 1850 2049 Output Total 3100 2275 300 Balance -1250 -225 -300 Physical Exam - Physical Exam General Appearance: WD/WN, alert, no apparent distress Respiratory: No respiratory distress, No accessory muscle use Skin: normal color, warm/dry Neuro/Psych: alert, normal mood/affect, oriented x 3, abnormal gait (Toe-touch weight-bearing on left with front wheeled walker. Observed climbing and descending steps with crutch and 1 rail, close standby and instructions per physical therapist.), No motor weakness, No sensory deficit ICD10 Worksheet Patient Problems: Problems Problem Status Onset Altered mental state Acute Brain lesion Acute Elevated d-dimer Acute Glucosuria Acute Hypoxemia Acute Rhabdomyolysis Acute Traumatic compression fracture of T5 thoracic vertebra Acute Vomiting Acute
--- NOTE | 2018-03-16 14:43 | PDOREHIP ---
Admission [facility] - Admission - 3 Day Assessment Period Admission Date/Day 1: 03/03/18 Day 2: 03/04/18 Day 3: 03/05/18 - Active Diagnoses Comorbidities and Co-existing Conditions at Admission: 73205. None of the Above Discharge [facility] - Discharge - 3 Day Assessment Period 2 Days Prior to Anticipated Discharge Date: 03/15/18 1 Day Prior to Anticipated Discharge Date: 03/16/18 Anticipated Discharge Date: 03/17/18 - Discharge Skin Conditions Unhealed Pressure Ulcer (1 or more/Stage 1 or >)-Discharge: 0. No (Two stage II ulcers on the right mid buttock healed during his rehabilitation stay.) # Stage 1 Pressure Ulcers-Discharge: 0 # Stage 2 Pressure Ulcers-Discharge: 0 # of These Stage 2 Pressure Ulcers Present on Admission: 0 # Stage 3 Pressure Ulcers-Discharge: 0 # of These Stage 3 Pressure Ulcers Present on Admission: 0 # Stage 4 Pressure Ulcers-Discharge: 0 # of These Stage 4 Pressure Ulcers Present on Admission: 0 # Unstageable Pressure Ulcers (Non-remove Dress)-Discharge: 0 # These Unstageable Pressure Ulcers (NRD)-Present on Admit: 0 # Unstageable Pressure Ulcers (Slough/Eschar)-Discharge: 0 # These Unstageable Pressure Ulcers(Slough) Present on Admit: 0 # Unstageable Pressure Ulcers (Deep Tissue Injury)-Discharge: 0 # These Unstageable Pressure Ulcers (DTI) Present on Admit: 0
[2018-03-16] MEDS: traZODone 50 MG TAB PO SCH (20:24)
[2018-03-16] MEDS: ACETAMINOPHEN 325 MG TAB PO PRN (20:34)
[2018-03-17] MEDS: DICLOFENAC SODIUM 1% 100 GM GEL TP SCH ×4 (05:08→22:05)
[2018-03-17] MEDS: levETIRAcetam 500 MG TAB PO SCH ×2 (08:34→22:01)
[2018-03-17] MEDS: CEPHALEXIN 500 MG CAP PO SCH ×2 (08:34→22:04)
[2018-03-17] MEDS: ENOXAPARIN 40 MG/0.4 ML SYR SC SCH (08:35)
[2018-03-17] MEDS: TAMSULOSIN HCL 0.4 MG CAP PO SCH (08:35)
--- NOTE | 2018-03-17 10:39 | SOAPPROG ---
SOAP Progress Note Assessment/Plan: Assessment: 68 yo healthy male with new seizure d/t brain tumor resulting in fall with multiple fractures * Debility with TTWB on left leg due to iliac wing/acetabular/posterior pubic rami fractures, and right hip fracture status post arthroplasty. * Initial functional independence measure is 67 on 03/06/2018; improved to 87 as of 03/13/2018. Standby assist for bed mobility except occasional minimal assist for the left lower extremity. Transfers with standby assist. Ambulated 70 ft standby assist with front wheeled walker. Climbed and descended 3 steps with 1 rail with contact guard to minimal assist. Minimal assist for bathing but otherwise standby assist for ADLs. * Inconsistently compliant with therapies. * Improved to standby assist for most ADLs as of 03/17/2018. * Continue PT and OT. * cognitive impairment * Scored 19/30 on the [facility] mental status exam. Subsequently improved to 29/30. 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 * Brain tumor * s/p resection. * expecting chemo in 2-3 weeks. Pathology report reviewed 03/09/2018. Does not appear to have favorable prognostic indicators; glioblastoma multiform, IDH wild type. Seen by Oncology 03/09/2018. * Completed dexamethasone 03/09/2018. Continue levetiracetam for seizure prophylaxis until followup with Neurosurgery. * urinary retention/frequency * didn't have problems before surgery * has been on Flomax * Has retention s/p d/c of catheter 03/05/2018. Required catheterization 2017 with 700 cc returned. Possible etiologies include cyclobenzaprine, R frontal craniotomy and tumor excision, and sacral hematoma from pelvic fractures. Increased tamsulosin to 0.8 mg QD starting 03/06/2018. DC cyclobenzaprine. * Resolved though he continues to have residuals in the high 100 to low 200s. Discontinue scheduled bladder scanning on 03/17/2018. Advise urology evaluation after discharge * Likely UTI on urinalysis 03/11/2018. * Culture with greater than 100,000 CFU per mL of Proteus and Klebsiella. Both organisms susceptible to cefazolin. * No leukocytosis. * He desires treatment in the hope of reducing urinary frequency and sleeping better. Continue cephalexin 500 mg twice daily x7 days, started 03/15/2018.. Appears to be responding with resolution of dysuria as of 03/16/2018 * Left shoulder pain * No fractures on x-ray and hospital. Likely soft tissue sprain or strain * Possibly exacerbated by need to weight bear on walker with toe-touch weight- bearing on the left lower extremity. * Improved with diclofenac gel starting 03/14/2018. *hyponatremia * urine na c/w SIADH * Sodium improved from 131 to 132 on 03/06/2018. Stable on BMP 03/13/2018.. * T5 compression fracture * no brace unless it becomes painful * Pain management appears to be adequate with acetaminophen and topical diclofenac. * Insomnia * Reports attaining sleep well but difficulty to regain sleep after he is up to urinate at about 2 in the morning. * Schedule trazodone at HS starting 03/14/2018. Temazepam is available if he is unable to sleep subsequently, but he has not used it since 03/13/2018. * Probable osteoporosis * orthopedic surgery noted poor bone quality * had been a vegan for many year - possibly nutrition related * vitamin D normal * testosterone low-normal * leukocytosis * probably from steroids *anemia, improving on CBC 03/13/2018 * DVT proph - has increased DVT risk due to solid tumor and reduced mobility. Continue enoxaparin until mobility improves. DISPOSITION: Lives alone. Has assistance from his brother as well as friends, but no one will be able to live with him and provide direct care. [facility] until he regains weight-bearing status, likely mid March. Discharge date was set for 03/17/2018. Appeal is in process as he would like to stay here longer. Tentative discharge date is now . FOLLOW-UP: Oncologist Dr. Snell, neurosurgery Dr. Tristan, PC P Dr. Baeza. Dr. Baeza wishes to be kept informed of progress. Her phone number is [phone]. Discussed pathology and prognosis with Dr. Baeza, 03/09/2018. Orthopedic surgeon Dr. Hawkins; left message for his chief medical physicist 03/10/2018. Incisions were closed with Dermabond so there are no sutures or ana to remove. 03/17/18 14:38 Subjective: A fall asleep well but awakens after several hours. Would like to have terazosin later in the evening. Says he took it at 8:00 p.m. Yesterday. Has no bladder symptoms though he is up several tonight, and wonders if he can use 0.4 mg of tamsulosin and set of 0.8 mg. Objective: Vital Signs Temp Pulse Resp BP Pulse Ox 36.6 C 91 20 101/63 97 03/17/18 09:00 03/17/18 09:00 03/17/18 09:00 03/17/18 09:00 03/17/18 09:00 Microbiology 03/12/18 11:13 Urine Culture - Final Urine,Clean Catch Proteus Mirabilis Klebsiella Pneumoniae Ssp Pneu Laboratory Results 03/13/18 13:49 03/13/18 13:49 03/16/18 03/17/18 03/18/18 05:59 05:59 05:59 Intake Total 2049 1160 Output Total 9331 6329 175 Qvmryfo -875 -840 -175 Physical Exam - Physical Exam General Appearance: WD/WN, alert, no apparent distress Respiratory: No respiratory distress, No accessory muscle use Skin: normal color, warm/dry Neuro/Psych: alert, normal mood/affect, oriented x 3, other (Able to arise from chair independently to front wheeled walker and able to hike his pants, with supervision by OT.) ICD10 Worksheet Patient Problems: Problems Problem Status Onset Altered mental state Acute Brain lesion Acute Elevated d-dimer Acute Glucosuria Acute Hypoxemia Acute Rhabdomyolysis Acute Traumatic compression fracture of T5 thoracic vertebra Acute Vomiting Acute
[2018-03-17] MEDS: traZODone 50 MG TAB PO SCH (22:01)
[2018-03-17] MEDS: ACETAMINOPHEN 325 MG TAB PO PRN (22:01)
[2018-03-18] MEDS: DICLOFENAC SODIUM 1% 100 GM GEL TP SCH ×4 (05:24→20:48)
[2018-03-18] MEDS: TAMSULOSIN HCL 0.4 MG CAP PO SCH (09:15)
[2018-03-18] MEDS: CEPHALEXIN 500 MG CAP PO SCH ×2 (09:15→20:48)
[2018-03-18] MEDS: ENOXAPARIN 40 MG/0.4 ML SYR SC SCH (09:16)
[2018-03-18] MEDS: levETIRAcetam 500 MG TAB PO SCH ×2 (09:16→20:48)
--- NOTE | 2018-03-18 11:05 | SOAPPROG ---
SOAP Progress Note Assessment/Plan: Assessment/Plan: 68 yo male with new seizure d/t brain tumor resulting in fall with multiple fractures * Debility with TTWB on left leg due to iliac wing/acetabular/posterior pubic rami fractures, and right hip fracture status post arthroplasty. * Initial functional independence measure is 67 on 03/06/2018; improved to 87 as of 03/13/2018. Standby assist for bed mobility except occasional minimal assist for the left lower extremity. Transfers with standby assist. Ambulated 70 ft standby assist with front wheeled walker. Climbed and descended 3 steps with 1 rail with contact guard to minimal assist. Minimal assist for bathing but otherwise standby assist for ADLs. * Inconsistently compliant with therapies. * Improved to standby assist for most ADLs as of 03/17/2018. * Continue PT and OT. * cognitive impairment * Scored 19/30 on the [facility] mental status exam. Subsequently improved to 29/30. * Continue SUPERVISOR SANDING. * Brain tumor * s/p resection. * expecting chemo in 2-3 weeks. Pathology report reviewed 03/09/2018. Does not appear to have favorable prognostic indicators; glioblastoma multiform, IDH wild type. Seen by Oncology 03/09/2018. * Completed dexamethasone 03/09/2018. Continue levetiracetam for seizure prophylaxis until followup with Neurosurgery. * urinary retention/frequency * didn't have problems before surgery * has been on Flomax * Has retention s/p d/c of catheter 03/05/2018. Required catheterization 2017 with 700 cc returned. Possible etiologies include cyclobenzaprine, R frontal craniotomy and tumor excision, and sacral hematoma from pelvic fractures. Increased tamsulosin to 0.8 mg QD starting 03/06/2018. DC cyclobenzaprine. * Resolved though he continues to have residuals in the high 100 to low 200s. Discontinue scheduled bladder scanning on 03/17/2018. Advise urology evaluation after discharge * Likely UTI on urinalysis 03/11/2018. * Culture with greater than 100,000 CFU per mL of Proteus and Klebsiella. Both organisms susceptible to cefazolin. * No leukocytosis. * He desires treatment in the hope of reducing urinary frequency and sleeping better. Continue cephalexin 500 mg twice daily x7 days, started 03/15/2018.. Appears to be responding with resolution of dysuria as of 03/16/2018 * Left shoulder pain * No fractures on x-ray and hospital. Likely soft tissue sprain or strain * Possibly exacerbated by need to weight bear on walker with toe-touch weight- bearing on the left lower extremity. * Improved with diclofenac gel starting 03/14/2018. *hyponatremia * urine na c/w SIADH * Sodium improved from 131 to 132 on 03/06/2018. Stable on BMP 03/13/2018.. * T5 compression fracture * no brace unless it becomes painful * Pain management appears to be adequate with acetaminophen and topical diclofenac. * Insomnia * Reports attaining sleep well but difficulty to regain sleep after he is up to urinate at about 2 in the morning. * Schedule trazodone at HS starting 03/14/2018. Temazepam is available if he is unable to sleep subsequently, but he has not used it since 03/13/2018. * Probable osteoporosis * orthopedic surgery noted poor bone quality * had been a vegan for many year - possibly nutrition related * vitamin D normal * testosterone low-normal * leukocytosis * probably from steroids *anemia, improving on CBC 03/13/2018 * DVT proph - has increased DVT risk due to solid tumor and reduced mobility. Continue enoxaparin until mobility improves. DISPOSITION: Lives alone. Has assistance from his brother as well as friends, but no one will be able to live with him and provide direct care. Planning discharge to senior living facility until he regains weight-bearing status, likely mid March. Discharge date was set for 03/17/2018. Appeal is in process as he would like to stay here longer. Tentative discharge date is now . FOLLOW-UP: Oncologist Dr. Snell, neurosurgery Dr. Tristan, PC P Dr. Baeza. Dr. Baeza wishes to be kept informed of progress. Her phone number is . Discussed pathology and prognosis with Dr. Baeza, 03/09/2018. Orthopedic surgeon Dr. Hawkins; left message for his medical services assistant 03/10/2018. Incisions were closed with Dermabond so there are no sutures or ana to remove. 03/18/18 10:21 Subjective: Not reporting any pain. Continent of bowel and bladder. Good appetite. Has some pain in the right shoulder but this has continued to get better since the original injury. NO new concerns with regards to neurologic changes today. Objective: Vital Signs Temp Pulse Resp BP Pulse Ox 97.5 F 67 15 102/65 92 03/18/18 05:47 03/18/18 05:47 03/18/18 05:47 03/18/18 05:47 03/18/18 05:47 Laboratory Results 03/13/18 13:49 03/13/18 13:49 03/17/18 03/18/18 03/19/18 05:59 05:59 05:59 Intake Total 1160 880 Output Total 1999 1500 600 Balance -84 -8068 -600 Physical Exam - Physical Exam General Appearance: alert, no apparent distress EENT: PERRL/EOMI, other (Well healed cranial incision) Respiratory: chest non-tender, lungs clear, normal breath sounds Cardiac/Chest: regular rate, rhythm Abdomen: normal bowel sounds, non-tender, soft Skin: normal color Extremities: other (no edema) Neuro/Psych: alert, normal mood/affect ICD10 Worksheet Patient Problems: Problems Problem Status Onset Altered mental state Acute Brain lesion Acute Elevated d-dimer Acute Glucosuria Acute Hypoxemia Acute Rhabdomyolysis Acute Traumatic compression fracture of T5 thoracic vertebra Acute Vomiting Acute
[2018-03-18] MEDS: traZODone 50 MG TAB PO SCH (20:48)
[2018-03-18] MEDS: ACETAMINOPHEN 325 MG TAB PO PRN (22:59)
[2018-03-19] MEDS: DICLOFENAC SODIUM 1% 100 GM GEL TP SCH ×4 (06:07→20:29)
[2018-03-19] MEDS: ENOXAPARIN 40 MG/0.4 ML SYR SC SCH (09:31)
[2018-03-19] MEDS: TAMSULOSIN HCL 0.4 MG CAP PO SCH (09:31)
[2018-03-19] MEDS: levETIRAcetam 500 MG TAB PO SCH ×2 (09:31→20:29)
[2018-03-19] MEDS: CEPHALEXIN 500 MG CAP PO SCH ×2 (09:31→20:29)
--- NOTE | 2018-03-19 10:36 | SOAPPROG ---
SOAP Progress Note Assessment/Plan: Assessment/Plan: 68 yo male with new seizure d/t brain tumor resulting in fall with multiple fractures on * Debility with TTWB on left leg due to iliac wing/acetabular/posterior pubic rami fractures, and right hip fracture status post arthroplasty. * Initial functional independence measure is 67 on 03/06/2018; improved to 87 as of 03/13/2018. Standby assist for bed mobility except occasional minimal assist for the left lower extremity. Transfers with standby assist. Ambulated 70 ft standby assist with front wheeled walker. Climbed and descended 3 steps with 1 rail with contact guard to minimal assist. Minimal assist for bathing but otherwise standby assist for ADLs. * Inconsistently compliant with therapies. * Improved to standby assist for most ADLs as of 03/17/2018. * Continue PT and OT. * Cognitive impairment * Scored 19/30 on the [facility] mental status exam. Subsequently improved to 29/30. * Continue K 12 PRINCIPAL. * Brain tumor * s/p resection. * expecting chemo in 2-3 weeks. Pathology report reviewed 03/09/2018. Does not appear to have favorable prognostic indicators; glioblastoma multiform, IDH wild type. Seen by Oncology 03/09/2018. * Completed dexamethasone 03/09/2018. Continue levetiracetam for seizure prophylaxis until followup with Neurosurgery. * urinary frequency/nocturia * didn't have problems before surgery * has been on Flomax * Had retention s/p d/c of catheter 03/05/2018. Required catheterization 2017 with 700 cc returned. Possible etiologies include cyclobenzaprine, R frontal craniotomy and tumor excision, and sacral hematoma from pelvic fractures. Increased tamsulosin to 0.8 mg QD starting 03/06/2018. DC cyclobenzaprine. * Resolved though he continues to have residuals in the high 100 to low 200s. Discontinue scheduled bladder scanning on 03/17/2018. Advise urology evaluation after discharge * Waking around 3x nightly - Working with RN about fluid management into the evenings. Maybe a small touch of DI although given sodium just correcting will continue to monitor. Pt correcting appropriately. * Discussed using Condom cath or other chart collector through the night but pt Ok getting to bedside commode to urinate. * Likely UTI on urinalysis 03/11/2018. * Culture with greater than 100,000 CFU per mL of Proteus and Klebsiella. Both organisms susceptible to cefazolin. * No leukocytosis. * He desires treatment in the hope of reducing urinary frequency and sleeping better. Continue cephalexin 500 mg twice daily x7 days, started 03/15/2018. Appears to be responding with resolution of dysuria as of 03/16/2018. *Right shoulder pain (corrected the laterality on this today - has been * No fractures on x-ray and hospital. Likely soft tissue sprain or strain * Possibly exacerbated by need to weight bear on walker with toe-touch weight- bearing on the left lower extremity. * Improved with diclofenac gel starting 03/14/2018. *hyponatremia * Resolved- BMP on 03/19 showing NA of 136 * T5 compression fracture * no brace unless it becomes painful * Pain management appears to be adequate with acetaminophen and topical diclofenac. * Insomnia * Reports attaining sleep well but difficulty to regain sleep after he is up to urinate at about 2 in the morning. * Schedule trazodone at HS starting 03/14/2018. Temazepam is available if he is unable to sleep subsequently, but he has not used it since 03/13/2018. * Probable osteoporosis * orthopedic surgery noted poor bone quality * had been a vegan for many year - possibly nutrition related * vitamin D normal * testosterone low-normal * leukocytosis * probably from steroids *anemia, improving on CBC 03/13/2018 * DVT proph - has increased DVT risk due to solid tumor and reduced mobility. Continue enoxaparin until mobility improves. DISPOSITION: Lives alone. Has assistance from his brother as well as friends, but no one will be able to live with him and provide direct care. Planning discharge to halfway facility until he regains weight-bearing status, likely mid March. Discharge date was set for 03/17/2018. Appeal is in process as he would like to stay here longer. Tentative discharge date is now . FOLLOW-UP: Oncologist Dr. Snell, Neurosurgery Dr. Tristan PCP Dr. Baeza. Would like to be informed - phone number is . Discussed pathology and prognosis with Dr. Baeza, 03/09/2018. Orthopedic surgeon Dr. Hawkins; left message for his medical collector 03/10/2018. Continue WB precautions until f/u with Ortho 03/19/18 10:51 Subjective: Feeling good today - was asking about "what's next" and what to expect. Had a good conversation based on current functional limitations from orthopeadic injuries. Also talked about increased urination. Potential causes and management. Pt feeling positive about progress being made. Did report some ' itching" around his penis/groin last night. Objective: Vital Signs Temp Pulse Resp BP Pulse Ox 97.8 F 74 15 106/65 93 03/19/18 06:04 03/19/18 06:04 03/19/18 06:04 03/19/18 06:04 03/19/18 06:04 Laboratory Results 03/13/18 13:49 03/19/18 06:00 03/18/18 03/19/18 03/20/18 05:59 05:59 05:59 Intake Total 880 1450 Output Total 3110 2900 300 Balance -2230 -1450 -300 Physical Exam - Physical Exam General Appearance: alert, no apparent distress EENT: PERRL/EOMI, other (Well healed incision) Respiratory: chest non-tender, lungs clear Cardiac/Chest: regular rate, rhythm Abdomen: normal bowel sounds, non-tender Male Genitalia: other (Slightly increased moisture - potential for slight appearence of yeast. NO discharge. Normal appearing phallus and testicles without pain) Skin: normal color Neuro/Psych: alert, normal mood/affect ICD10 Worksheet Patient Problems: Problems Problem Status Onset Altered mental state Acute Brain lesion Acute Elevated d-dimer Acute Glucosuria Acute Hypoxemia Acute Rhabdomyolysis Acute Traumatic compression fracture of T5 thoracic vertebra Acute Vomiting Acute
[2018-03-19] MEDS: NYSTATIN POWDER 15 GM BTL TP SCH ×2 (17:30→23:05)
[2018-03-19] MEDS: ACETAMINOPHEN 325 MG TAB PO PRN (20:28)
[2018-03-19] MEDS: traZODone 50 MG TAB PO SCH (20:29)
[2018-03-20] MEDS: ACETAMINOPHEN 325 MG TAB PO PRN ×2 (00:28→21:03)
[2018-03-20] MEDS: DICLOFENAC SODIUM 1% 100 GM GEL TP SCH ×2 (03:48→09:25)
--- NOTE | 2018-03-20 06:41 | PDOREHIP ---
Admission [facility] - Admission - 3 Day Assessment Period Admission Date/Day 1: 03/03/18 Day 2: 03/04/18 Day 3: 03/05/18 - Active Diagnoses Comorbidities and Co-existing Conditions at Admission: 02515. None of the Above Discharge [facility] - Discharge - 3 Day Assessment Period 2 Days Prior to Anticipated Discharge Date: 03/20/18 1 Day Prior to Anticipated Discharge Date: 03/21/18 Anticipated Discharge Date: 03/22/18 (Discharge to [facility]) - Discharge Skin Conditions Unhealed Pressure Ulcer (1 or more/Stage 1 or >)-Discharge: 0. No # Stage 1 Pressure Ulcers-Discharge: 0 # Stage 2 Pressure Ulcers-Discharge: 0 # of These Stage 2 Pressure Ulcers Present on Admission: 0 # Stage 3 Pressure Ulcers-Discharge: 0 # of These Stage 3 Pressure Ulcers Present on Admission: 0 # Stage 4 Pressure Ulcers-Discharge: 0 # of These Stage 4 Pressure Ulcers Present on Admission: 0 # Unstageable Pressure Ulcers (Non-remove Dress)-Discharge: 0 # These Unstageable Pressure Ulcers (NRD)-Present on Admit: 0 # Unstageable Pressure Ulcers (Slough/Eschar)-Discharge: 0 # These Unstageable Pressure Ulcers(Slough) Present on Admit: 0 # Unstageable Pressure Ulcers (Deep Tissue Injury)-Discharge: 0 # These Unstageable Pressure Ulcers (DTI) Present on Admit: 0
[2018-03-20] MEDS: NYSTATIN POWDER 15 GM BTL TP SCH ×3 (08:29→23:27)
--- NOTE | 2018-03-20 08:29 | SOAPPROG ---
SOAP Progress Note Assessment/Plan: Assessment/Plan: 68 yo male with new seizure d/t brain tumor resulting in fall with multiple fractures on * Debility with TTWB on left leg due to iliac wing/acetabular/posterior pubic rami fractures, and right hip fracture status post arthroplasty. * Initial functional independence measure is 67 on 03/06/2018; improved to 87 as of 03/13/2018. Standby assist for bed mobility except occasional minimal assist for the left lower extremity. Transfers with standby assist. Ambulated 70 ft standby assist with front wheeled walker. Climbed and descended 3 steps with 1 rail with contact guard to minimal assist. Minimal assist for bathing but otherwise standby assist for ADLs. * Requiring increased motivation at times for participation but improving. * Improved to standby assist for most ADLs as of 03/17/2018. * Continue PT and OT. * Cognitive impairment * Scored 19/30 on the [facility] mental status exam. Subsequently improved to 29/30. * Continue COURSE DEVELOPER. * Brain tumor * s/p resection. * expecting chemo in 2-3 weeks. Pathology report reviewed 03/09/2018. Does not appear to have favorable prognostic indicators; glioblastoma multiform, IDH wild type. Seen by Oncology 03/09/2018. * Completed dexamethasone 03/09/2018. Continue levetiracetam for seizure prophylaxis until followup with Neurosurgery. * urinary frequency/nocturia * didn't have problems before surgery * has been on Flomax * Had retention s/p d/c of catheter 03/05/2018. Required catheterization 2017 with 700 cc returned. Possible etiologies include cyclobenzaprine, R frontal craniotomy and tumor excision, and sacral hematoma from pelvic fractures. Increased tamsulosin to 0.8 mg QD starting 03/06/2018. DC cyclobenzaprine. * Resolved though he continues to have residuals in the high 100 to low 200s. Discontinue scheduled bladder scanning on 03/17/2018. Advise urology evaluation after discharge * Waking around 3x nightly - Working with RN about fluid management into the evenings. Maybe a small touch of DI although given sodium just correcting will continue to monitor. Pt correcting appropriately. * Discussed using Condom cath or other accounts receivable collector through the night but pt Ok getting to bedside commode to urinate. * Likely UTI on urinalysis 03/11/2018. * Culture with greater than 100,000 CFU per mL of Proteus and Klebsiella. Both organisms susceptible to cefazolin. * No leukocytosis. * He desires treatment in the hope of reducing urinary frequency and sleeping better. Continue cephalexin 500 mg twice daily x7 days, started 03/15/2018. Appears to be responding with resolution of dysuria as of 03/16/2018. *Right shoulder pain (corrected the laterality on this today - has been * No fractures on x-ray and hospital. Likely soft tissue sprain or strain * Possibly exacerbated by need to weight bear on walker with toe-touch weight- bearing on the left lower extremity. * Improved with diclofenac gel starting 03/14/2018. *hyponatremia * Resolved- BMP on 03/19 showing NA of 136 * T5 compression fracture * no brace unless it becomes painful * Pain management appears to be adequate with acetaminophen and topical diclofenac. * Insomnia * Reports attaining sleep well but difficulty to regain sleep after he is up to urinate at about 2 in the morning. * Pt asking about other sleep aids - Doesn't want to use trazodone anymore and doesn't want to trial Temazepam because it is a benzo * Added Ambien 5mg scheduled and 5mg PRN if awakes through the night * Probable osteoporosis * orthopedic surgery noted poor bone quality * had been a vegan for many year - possibly nutrition related * vitamin D normal * testosterone low-normal * leukocytosis * probably from steroids *anemia, improving on CBC 03/13/2018 * DVT proph - has increased DVT risk due to solid tumor and reduced mobility. Continue enoxaparin until mobility improves. DISPOSITION: Lives alone. Has assistance from his brother as well as friends, but no one will be able to live with him and provide direct care. Planning discharge to detention facility until he regains weight-bearing status, likely mid March. Discharge date was set for 03/17/2018. Appeal is in process as he would like to stay here longer. Tentative discharge date is now . FOLLOW-UP: Oncologist Dr. Snell, Neurosurgery Dr. Tristan PCP Dr. Baeza. Would like to be informed - phone number is . Discussed pathology and prognosis with Dr. Baeza, 03/09/2018. Orthopedic surgeon Dr. Hawkins; left message for his lead medical technologist 03/10/2018. Continue WB precautions until f/u with Ortho 03/20/18 08:21 Subjective: Doing pretty well - Awoke a couple times last night to urinate. Reported that "shut" things off around 7 or so. Talked that this may be too late to decrease the night time urination. Although the I/o's aren't matching and it appears that patient is in a severe deficit he doesn't feel 'dry'. Also reports that he isn't able to report well how much fluids he drinks when his friends come in. no fevers/chills, no new neurologic changes Objective: Vital Signs Temp Pulse Resp BP Pulse Ox 97.5 F 84 16 105/63 97 03/20/18 07:32 03/20/18 07:32 03/20/18 07:32 03/20/18 07:32 03/20/18 07:32 Laboratory Results 03/13/18 13:49 03/19/18 06:00 03/19/18 03/20/18 03/21/18 05:59 05:59 05:59 Intake Total 1450 1989 Output Total 2900 3500 Balance -1450 -1510 Physical Exam - Physical Exam General Appearance: alert, no apparent distress EENT: other (Mucous membranes are moist, Well healed cranial incision) Respiratory: chest non-tender, lungs clear, normal breath sounds Cardiac/Chest: regular rate, rhythm Abdomen: normal bowel sounds, non-tender Skin: normal color Extremities: non-tender, other (no edema) Neuro/Psych: alert, normal mood/affect ICD10 Worksheet Patient Problems: Problems Problem Status Onset Altered mental state Acute Brain lesion Acute Elevated d-dimer Acute Glucosuria Acute Hypoxemia Acute Rhabdomyolysis Acute Traumatic compression fracture of T5 thoracic vertebra Acute Vomiting Acute
[2018-03-20] MEDS: levETIRAcetam 500 MG TAB PO SCH ×2 (09:22→21:04)
[2018-03-20] MEDS: TAMSULOSIN HCL 0.4 MG CAP PO SCH (09:22)
[2018-03-20] MEDS: ENOXAPARIN 40 MG/0.4 ML SYR SC SCH (09:22)
[2018-03-20] MEDS: CEPHALEXIN 500 MG CAP PO SCH ×2 (09:22→21:03)
[2018-03-20] MEDS: ZOLPIDEM TARTRATE 5 MG TAB PO SCH (21:04)
[2018-03-20] MEDS: traZODone 50 MG TAB PO PRN ×2 (21:49→23:28)
[2018-03-21] MEDS: NYSTATIN POWDER 15 GM BTL TP SCH ×3 (07:57→20:13)
[2018-03-21] MEDS: CEPHALEXIN 500 MG CAP PO SCH ×2 (09:12→20:10)
[2018-03-21] MEDS: ENOXAPARIN 40 MG/0.4 ML SYR SC SCH (09:12)
[2018-03-21] MEDS: TAMSULOSIN HCL 0.4 MG CAP PO SCH (09:12)
[2018-03-21] MEDS: levETIRAcetam 500 MG TAB PO SCH ×2 (09:12→20:09)
[2018-03-21] MEDS ORDERED: MELATONIN 3 MG TAB PO PRN (11:30)
--- NOTE | 2018-03-21 11:35 | SOAPPROG ---
SOAP Progress Note Assessment/Plan: Assessment/Plan: 68 yo male with new seizure d/t brain tumor resulting in fall with multiple fractures on * Debility with TTWB on left leg due to iliac wing/acetabular/posterior pubic rami fractures, and right hip fracture status post arthroplasty. * Initial functional independence measure is 67 on 03/06/2018; improved to 87 as of 03/13/2018. Standby assist for bed mobility except occasional minimal assist for the left lower extremity. Transfers with standby assist. Ambulated 70 ft standby assist with front wheeled walker. Climbed and descended 3 steps with 1 rail with contact guard to minimal assist. Minimal assist for bathing but otherwise standby assist for ADLs. * Requiring increased motivation at times for participation but improving. * Improved to standby assist for most ADLs as of 03/17/2018. * Continue PT and OT. * Cognitive impairment * Scored 19/30 on the [facility] mental status exam. Subsequently improved to 29/30. * Continue SUPERVISOR IN CHARGE. * Brain tumor * s/p resection. * expecting chemo in 2-3 weeks. Pathology report reviewed 03/09/2018. Does not appear to have favorable prognostic indicators; glioblastoma multiform, IDH wild type. Seen by Oncology 03/09/2018. * Completed dexamethasone 03/09/2018. Continue levetiracetam for seizure prophylaxis until followup with Neurosurgery. * urinary frequency/nocturia * didn't have problems before surgery * has been on Flomax * Had retention s/p d/c of catheter 03/05/2018. Required catheterization 2017 with 700 cc returned. Possible etiologies include cyclobenzaprine, R frontal craniotomy and tumor excision, and sacral hematoma from pelvic fractures. Increased tamsulosin to 0.8 mg QD starting 03/06/2018. DC cyclobenzaprine. * Resolved though he continues to have residuals in the high 100 to low 200s. Discontinue scheduled bladder scanning on 03/17/2018. Advise urology evaluation after discharge * Waking around 3x nightly - Working with RN about fluid management into the evenings * Likely UTI on urinalysis 03/11/2018. * Culture with greater than 100,000 CFU per mL of Proteus and Klebsiella. Both organisms susceptible to cefazolin. * No leukocytosis. * He desires treatment in the hope of reducing urinary frequency and sleeping better. Continue cephalexin 500 mg twice daily x7 days, started 03/15/2018. last day of ABX is today *Right shoulder pain (corrected the laterality on this today - has been * No fractures on x-ray and hospital. Likely soft tissue sprain or strain * Possibly exacerbated by need to weight bear on walker with toe-touch weight- bearing on the left lower extremity. * Improved with diclofenac gel starting 03/14/2018. *hyponatremia * Resolved- BMP on 03/19 showing NA of 136 * T5 compression fracture * no brace unless it becomes painful * Pain management appears to be adequate with acetaminophen and topical diclofenac. * Insomnia * Reports attaining sleep well but difficulty to regain sleep after he is up to urinate at about 2 in the morning. * Pt didn't want to take Ambien - Used trazodone again on night of 03/20. * Per further discussion would rather have PRN Melatonin and Trazodone. Told he he can decide which to take but will need to ask for them * Probable osteoporosis * orthopedic surgery noted poor bone quality * had been a vegan for many year - possibly nutrition related * vitamin D normal * testosterone low-normal * leukocytosis * probably from steroids - No evidence of infection *anemia, improving on CBC 03/13/2018 * DVT proph - has increased DVT risk due to solid tumor and reduced mobility. Continue enoxaparin until mobility improves. DISPOSITION: Lives alone. Has assistance from his brother as well as friends, but no one will be able to live with him and provide direct care. Planning discharge to assisted facility until he regains weight-bearing status, likely mid March. Discharge date was set for 03/17/2018. Appeal is in process as he would like to stay here longer. Tentative discharge date is now . FOLLOW-UP: Oncologist Dr. Snell, Neurosurgery Dr. Tristan PCP Dr. Baeza. Would like to be informed - phone number is . Discussed pathology and prognosis with Dr. Baeza, 03/09/2018. Orthopedic surgeon Dr. Hawkins; left message for his medical data analyst 03/10/2018. Continue WB precautions until f/u with Ortho 03/21/18 11:32 Subjective: Doing pretty today - Had a better night last night. Able to get 5-6 hrs total. Woke up only a couple of times to use the restroom. Had questions regarding his d/c - explained that it is set for tomorrow. We reviewed upcoming appts. Feeling positive about the improvements but realizes has some things lying ahead of him. Talked about sleep meds - Will place trazodone and melatonin PRN - discussed how each one works and timing. He will need to call for them and he is in control of these. Last day of ABX is today - good resolution. Objective: Vital Signs Temp Pulse Resp BP Pulse Ox 97.5 F 74 16 96/56 L 95 03/21/18 08:00 03/21/18 08:00 03/21/18 08:00 03/21/18 08:00 03/21/18 08:00 Laboratory Results 03/13/18 13:49 03/19/18 06:00 03/20/18 03/21/18 03/22/18 05:59 05:59 05:59 Intake Total 1989 2390 250 Output Total 3500 1900 Balance -1510 490 250 Physical Exam - Physical Exam General Appearance: alert, no apparent distress EENT: PERRL/EOMI Respiratory: lungs clear, normal breath sounds Cardiac/Chest: regular rate, rhythm, other (trace to 1+ edema just around the bilateral ankle area - otherwise no edema. Good warmth to feet and good pulses) Abdomen: non-tender, soft Skin: normal color, warm/dry, other Neuro/Psych: alert, normal mood/affect ICD10 Worksheet Patient Problems: Problems Problem Status Onset Altered mental state Acute Brain lesion Acute Elevated d-dimer Acute Glucosuria Acute Hypoxemia Acute Rhabdomyolysis Acute Traumatic compression fracture of T5 thoracic vertebra Acute Vomiting Acute
[2018-03-21] MEDS ORDERED: TAMSULOSIN HCL 0.4 MG CAP PO SCH (11:40)
[2018-03-21] MEDS: ACETAMINOPHEN 325 MG TAB PO PRN (20:09)
[2018-03-21] MEDS: ZOLPIDEM TARTRATE 5 MG TAB PO SCH (20:13)
[2018-03-22 05:30] VITALS: BP 97/62
[2018-03-22] MEDS: levETIRAcetam 500 MG TAB PO SCH (08:22)
[2018-03-22] MEDS: CEPHALEXIN 500 MG CAP PO SCH (08:23)
[2018-03-22] MEDS: NYSTATIN POWDER 15 GM BTL TP SCH (08:23)
[2018-03-22] MEDS: ENOXAPARIN 40 MG/0.4 ML SYR SC SCH (08:24)
--- NOTE | 2018-03-22 12:12 | GDS ---
ADMITTING DIAGNOSIS: Debility, status post craniotomy and excision of right frontal glioblastoma. DISCHARGE DIAGNOSIS: Debility, status post craniotomy and excision of right frontal glioblastoma. OTHER DISCHARGE DIAGNOSES: 1. Left pelvic fractures with toe-touch weightbearing on the left leg. 2. Cognitive impairment. 3. Urinary frequency and nocturia. 4. Insomnia. 5. Probable osteoporosis. COMPLICATIONS: There were none. CONSULTATIONS: There were none. PROCEDURES: There were none. HISTORY AND HOSPITAL COURSE: This patient was admitted from [facility] where he had presented following a seizure and a fall. He suffered multiple fractures in the fall, including left pelvic fractures and a right hip fracture. He was diagnosed with a brain mass and underwent surgery and removal of a right frontal glioblastoma. He had total hip arthroplasty on the right, but remained toe-touch weightbearing on the left due to the pelvic fractures. He was medically stabilized and appropriate for inpatient rehabilitation. Initially, he showed significant debility. His functional independence measure was 67 on 03/06/2018, which is consistent with [facility] level of care, requiring assistance with most aspects of mobility and activities of daily living. Additionally, he had significant cognitive impairment and scored 19/30 on the [facility] Mental Status Exam, which is in the demented range. He had steady functional improvement. As of 03/20/2018, his functional independence measure had improved to 105, which is consistent with independent living, though he still had some mobility deficits due to his weightbearing precautions and some cognitive limitations regarding decision making. His score on the [facility] Mental Status Exam, however, improved to 29/30 , which is in the normal range. He had urinary issues during his stay. A Ferguson catheter had been placed during his hospitalization, and was discontinued shortly before he came to rehabilitation. There was urinary retention and multiple episodes of catheterization due to postvoid residuals greater than 400 by ultrasound bladder scan. Tamsulosin, which had been started in the hospital, was increased from 0.4 to 0.8 mg daily, and he had gradual improvement in his urinary function and was ultimately able to void normally with postvoid residuals in the 100s. He developed a urinary tract infection with Proteus and Klebsiella, both of which were susceptible to cefazolin. He was treated with cephalexin 500 mg twice a day for 7 days and had resolution of dysuria. He continued to have urinary frequency about 3 times overnight. There was hyponatremia during his stay with a sodium of 132, which normalized to 136 as of 03/19/2018. He had adequate pain management with oral acetaminophen and topical diclofenac. He had issues regarding sleep. He would attain sleep well, but had difficulty regaining sleep after being up to urinate. Trazodone was somewhat helpful. He had been using temazepam, but discontinued it, because of its longer-term sedating and amnestic effects. Ultimately, he used melatonin on the night before discharge, which helped him sleep through the night. However, he felt that it left him groggy the next day. Given his multiple fractures from a ground level fall, it was considered that he likely has osteoporosis. He had a normal vitamin D level. Testosterone level was tested. Free testosterone was normal at 4.74 with the range being from 3.47 to 13. Total testosterone was low at 237, with the normal range being 240 to 940. He was not given testosterone replacement. Advised repeat testing of testosterone once he is no longer acutely ill and consider testosterone replacement. Depending on his ultimate prognosis from the tumor, he might benefit more from evaluation from Endocrinology and consideration of therapies to maintain or improve bone strength. DISCHARGE PLAN/DISPOSITION: He is discharging to [facility] in [place]. CONDITION: Good. DIET: Regular. ALLERGIES: There are no new allergies, and there are no known drug allergies. MEDICATIONS ON DISCHARGE: 1. Acetaminophen 325-650 mg p.o. q.4 hours p.r.n. 2. Enoxaparin 40 mg subcutaneous daily until weightbearing is restored, or until 6 weeks following his injury, which would be March 31, 2018. 3. Levetiracetam 1000 mg p.o. b.i.d. 4. Melatonin 3 mg p.o. q.h.s. p.r.n. 5. Nystatin powder p.r.n. 6. Tamsulosin 0.4 mg p.o. daily. 7. Trazodone 50 mg p.o. q.h.s. ISSUES TO BE ADDRESSED AT FOLLOWUP: 1. Mobility, ADLs and cognition. He will continue PT, OT, and TUBE FILLER at the group home facility. 2. Glioblastoma. He has followup scheduled with oncologist Dr. Snell at the [facility] and Dr. Bridges of radiation oncology. 3. Pelvic fractures and toe-touch weightbearing status. He will follow up with orthopedic surgeon, Dr. Alfredo Hawkins, on 03/22/2018. 4. Status post craniotomy. He has followup with neurosurgeon, Dr. Jame Tristan , on 03/22/2018. 5. Urinary frequency/nocturia and history of urinary retention. He should consider evaluation by a urologist should these symptoms continue to be bothersome. 6. Probable osteoporosis. Depending on his prognosis regarding the brain tumor , he could consider evaluation by an asl interpreter regarding maintaining bone strength and consider DEXA scan to confirm the diagnosis. He will also follow up with his primary care provider regarding this issue. More than 30 minutes was spent on this discharge summary, including medication reconciliation, coordination of care, and counseling patient. /[id number]/MODL MTDD
== END 2018-03-22 10:15 | DRG 55 ==
LOC: BREH 14:00
PROVIDERS: ADMIT Physical Medicine & Rehabilitation; ATTEND Internal Medicine Hospice and Palliative Medicine
PROC: F07M3ZZ Motor Function Treatment of Musculoskeletal System - Whole Body (ICD-10-PCS; principal; 2018-03-03)
PROC: F0636ZZ Communicative/Cognitive Integration Skills Treatment of Neurological System - Whole Body (ICD-10-PCS; principal; 2018-03-03)
PROC: F08Z4ZZ Home Management Treatment (ICD-10-PCS; principal; 2018-03-03)
DX: C71.9 Malignant neoplasm of brain, unspecified (principal); E87.1 Hypo-osmolality and hyponatremia; M48.54XA Collapsed vertebra, not elsewhere classified, thoracic region, initial encounter for fracture; R53.81 Other malaise; N39.0 Urinary tract infection, site not specified; B96.4 Proteus (mirabilis) (morganii) as the cause of diseases classified elsewhere; B96.1 Klebsiella pneumoniae [K. pneumoniae] as the cause of diseases classified elsewhere; M81.0 Age-related osteoporosis without current pathological fracture; L89.312 Pressure ulcer of right buttock, stage 2; G47.00 Insomnia, unspecified; G40.909 Epilepsy, unspecified, not intractable, without status epilepticus; R26.9 Unspecified abnormalities of gait and mobility; R41.840 Attention and concentration deficit; R41.83 Borderline intellectual functioning; S32.402D Unspecified fracture of left acetabulum, subsequent encounter for fracture with routine healing; S32.392D Other fracture of left ilium, subsequent encounter for fracture with routine healing; S32.592D Other specified fracture of left pubis, subsequent encounter for fracture with routine healing; D64.9 Anemia, unspecified; R33.9 Retention of urine, unspecified; M25.512 Pain in left shoulder; W19.XXXD Unspecified fall, subsequent encounter; Z96.641 Presence of right artificial hip joint
CPT/HCPCS: 82607-90; 83735-90; 84402-90; 92507-GN; 92523-GN; 97110-GO; 97110-GP; 97116-GP; 97140-GO; 97140-GP; 97162-GP; 97167-GO; 97530-GO; 97530-GP; 97535-GO; J1650

== ENCOUNTER → 2018-05-18 | Outpatient (CLI) | payer OTHER, MEDICARE | LOC: FIMAGING 18:55 | PROVIDERS: ATTEND Orthopaedic Surgery | DX: M54.5 Low back pain (principal); M41.9 Scoliosis, unspecified; M51.36 Other intervertebral disc degeneration, lumbar region; M43.06 Spondylolysis, lumbar region ==

== ENCOUNTER → 2018-07-27 | Outpatient (CLI) | payer OTHER ==
[~2018-07-27] MED LIST: GADOBUTROL 10 ML VIAL IVP ONE
== END ==
LOC: FIMAGING 11:16
PROVIDERS: ATTEND Family Medicine
DX: Z08 Encounter for follow-up examination after completed treatment for malignant neoplasm (principal); C71.9 Malignant neoplasm of brain, unspecified; Z98.890 Other specified postprocedural states
CPT/HCPCS: 70553; A9585; 82565-PO